=== PATIENT | female | born 1955 | race Caucasian/White ===

== ENCOUNTER 2016-09-29 23:10 | Emergency (ER) | payer MEDICARE, OTHER ==
[2016-09-29] MEDS: Aspirin 81 MG Tab.Chew ONE (23:15)
[2016-09-29] MEDS ORDERED: Aspirin 81 MG Tab.Chew PO ONE (23:17)
[2016-09-29] MEDS ORDERED: Sodium Chloride 0.9% 5 ML Syringe FLUSH PRN (23:20)
[2016-09-29] MEDS: Nitroglycerin 0.4 MG Tab.SL SL PRN ×3 (23:30→23:45)
--- NOTE | 2016-09-29 23:40 | EDM.PDOC ---
ED HPI GENERAL MEDICAL PROBLEM - General Chief Complaint: Chest Pain Stated Complaint: chest hurts Time Seen by Provider: 09/29/16 23:25 Source of Information: Reports: Patient History Limitations: Reports: No Limitations - History of Present Illness INITIAL COMMENTS - FREE TEXT/NARRATIVE: Patient presents with chest pain and heaviness that started about 2100 while she was sitting on her bed slicing meat and cheese. It continues and she rates it at 7/10. She has never had this pain before. She denies any history of MT but had a cardiac stent placed 6 months ago. She does have IDDM and COOKIE. - Related Data Allergies Allergy/AdvReac Type Severity Reaction Status Date / Time prednisone Allergy Cannot Verified 09/30/16 00:16 Remember Sulfa (Sulfonamide Allergy Cannot Verified 09/30/16 00:16 Antibiotics) Remember Home Meds: Home Meds DULoxetine [Cymbalta] 60 mg PO DAILY 09/29/16 [History] Fesoterodine Fumarate [Toviaz] 09/29/16 [History] Fluticasone/Salmeterol [Advair 250-50 Diskus] 09/29/16 [History] Insulin Glarg,Human.Rec.Analog [Lantus] 09/29/16 [History] Meloxicam [Meloxicam] 09/29/16 [History] glipiZIDE [Glipizide ER] 09/29/16 [History] ED ROS GENERAL - Review of Systems Review Of Systems: See Below Constitutional: Denies: Fever, Chills HEENT: Denies: Throat Pain, Vision Change Respiratory: Denies: Shortness of Breath, Cough Cardiovascular: Reports: Chest Pain. Denies: Lightheadedness, Syncope GI/Abdominal: Denies: Abdominal Pain, Vomiting : Denies: Dysuria, Flank Pain Musculoskeletal: Reports: Shoulder Pain (right), Arm Pain (right). Denies: Neck Pain, Back Pain Skin: Denies: Cyanosis, Jaundice, Mottled, Pallor, Diaphoresis Neurological: Denies: Confusion, Dizziness, Headache, Seizure, Syncope, Trouble Speaking Psychiatric: Denies: Agitation, Confusion ED EXAM, GENERAL - Physical Exam Exam: See Below Exam Limited By: No Limitations General Appearance: Alert, WD/WN, No Apparent Distress Eye Exam: Bilateral Eye: EOMI, Normal Inspection, PERRL Ears: Normal External Exam, Hearing Grossly Normal Nose: Normal Inspection, No Blood Throat/Mouth: Normal Lips, Normal Voice, No Airway Compromise Head: Atraumatic, Normocephalic Neck: Supple, Non-Tender, Full Range of Motion. No: Carotid Bruit Respiratory/Chest: No Respiratory Distress, Lungs Clear, Normal Breath Sounds, No Accessory Muscle Use Cardiovascular: Regular Rate, Rhythm, No Murmur Peripheral Pulses: 1+: Dorsalis Pedis (L), Dorsalis Pedis (R), 2+: Carotid (L), Carotid (R), Radial (L), Radial (R) GI/Abdominal: Soft, Non-Tender, No Organomegaly, No Distention Back Exam: No: CVA Tenderness (L), CVA Tenderness (R) Extremities: Non-Tender Neurological: Alert, Oriented, Normal Cognition, No Motor/Sensory Deficits Psychiatric: Normal Affect, Normal Mood Skin Exam: Warm, Dry, Intact, Normal Color, No Rash EKG INTERPRETATION EKG Date: 07/02/16 Rhythm: NSR P-wave: present QRS: RBBB (unchanged from 2 weeks ago on comparison) ST-T: normal QT: normal Comparison: no change Course - Orders/Labs/Meds Orders: Active Orders 24 hr Category Date Time Status EKG Documentation Completion [RC] ASDIRECTED Care 09/29/16 23:37 Ordered Chest 1V Frontal [CR] Stat Exams 09/29/16 23:36 Ordered Sodium Chloride 0.9% @ 999 MLS/HR (1000ml) Med 09/29/16 23:51 Ordered Sodium Chloride 0.9% [Normal Saline] 1,000 ml IV .BOLUS EKG 12 Lead [EK] Routine Ther 09/29/16 23:36 Ordered Medication Orders Sodium Chloride (Normal Saline) 1,000 mls @ 999 mls/hr IV .BOLUS ONE Stop: 09/30/16 00:51 Last Admin: 09/30/16 00:05 Dose: 999 mls/hr Labs: Laboratory Tests 09/29/16 09/29/16 Range/Units 23:28 23:28 WBC 12.0 H (5.0-10.0) 10^3/uL RBC 4.64 (3.80-5.50) 10^6/uL Hgb 13.7 (12.0-16.0) g/dL Hct 41.1 (37.0-47.0) % MCV 88.6 (82.0-92.0) fL MCH 29.5 (27.0-31.0) pg MCHC 33.3 (32.0-36.0) g/dL RDW 11.9 (11.5-14.5) % Plt Count 278 (150-300) 10^3/uL MPV 8.5 (7.4-10.4) fL Sodium 139 (136-145) mmol/L Potassium 4.9 (3.3-5.3) mmol/L Chloride 101 (98-115) mmol/L Carbon Dioxide 27.0 (21.0-32.0) mmol/L BUN 27 H (6-25) mg/dL Creatinine 1.22 H (0.51-1.17) mg/dL Est Cr Clr Drug Dosing 36.54 mL/min Estimated GFR (MDRD) 45 mL/min Glucose 300 H (70-110) mg/dL Calcium 9.6 (8.7-10.3) mg/dL Troponin I 0.07 (0.00-0.070) ng/mL Meds: Medications Generic Name Dose Route Start Last Admin Trade Name Freq PRN Reason Stop Dose Admin Sodium Chloride 1,000 mls @ 999 mls/hr 09/29/16 23:51 09/30/16 00:05 Normal Saline IV 09/30/16 00:51 999 mls/hr .BOLUS ONE Administration Discontinued Medications Generic Name Dose Route Start Last Admin Trade Name Freq PRN Reason Stop Dose Admin Al Hydroxide/Mg Hydroxide 45 ml 09/30/16 00:01 09/30/16 00:07 Gi Cocktail PO 09/30/16 00:02 45 ml ONETIME ONE Administration Al Hydroxide/Mg Hydroxide Confirm 09/30/16 00:02 09/30/16 00:08 Gi Cocktail Administered 09/30/16 00:03 Not Given Dose 50 ml .ROUTE .STK-MED ONE Aspirin Confirm 09/30/16 00:11 09/29/16 23:15 Aspirin Administered 09/30/16 00:12 324 mg Dose Administration 324 mg .ROUTE .STK-MED ONE Heparin Sodium (Porcine) Confirm 09/30/16 00:37 09/30/16 00:42 Heparin Sodium Administered 09/30/16 00:38 4,000 units Dose Administration 5,000 units .ROUTE .STK-MED ONE Heparin Sodium (Porcine) 5,000 units 09/30/16 00:32 Heparin Sodium IVPUSH 09/30/16 00:33 ONETIME ONE Sodium Chloride Confirm 09/29/16 23:52 09/30/16 00:07 Normal Saline Administered 09/29/16 23:53 Not Given Dose 1,000 mls @ as directed .ROUTE .STK-MED ONE Morphine Sulfate 4 mg 09/29/16 23:49 09/29/16 23:50 Morphine IVPUSH 09/29/16 23:50 4 mg ONETIME ONE Administration Morphine Sulfate Confirm 09/29/16 23:49 09/30/16 00:07 Morphine Administered 09/29/16 23:50 Not Given Dose 4 mg .ROUTE .STK-MED ONE Nitroglycerin 0.4 mg 09/30/16 00:08 Nitrostat SL 09/30/16 00:19 Q5M PRN Chest Pain - Re-Assessments/Exams Free Text/Narrative Re-Assessment/Exam: 09/29/16 23:50 Patient has had Nitro sl x 3 and pain is 4-5/10 from 7/10 initially. Giving morphine. Waiting on labs. 09/29/16 23:57 Pain is down to 3/10 shortly after morphine ivp. WBC is 12.0. CXR is normal. 09/30/16 00:44 Troponin is 0.07. Pain is down to 2/10 but not further improving. GI cocktail didn't help. Discussed with Dr. Loza (hospitalist) at [facility] who accepted for transfer to PCU. Discussed also with patient and her who agree and patient is relieved to go there to get everything all checked out. Patient has remained stable throughout ER course. Departure - Departure Time of Disposition: 00:46 Disposition: DC/Tfer to Acute Hospital 02 Reason for Transfer *Q: Other Condition: good Clinical Impression: Unstable angina, NSTEMI, initial episode of care Referrals: Brenda Gomez MD [Primary Care Provider] - Forms: ED Department Discharge - My Orders Last 24 Hours: My Active Orders 09/29/16 23:36 Chest 1V Frontal [CR] Stat EKG 12 Lead [EK] Routine 09/29/16 23:37 EKG Documentation Completion [RC] ASDIRECTED 09/29/16 23:51 Sodium Chloride 0.9% @ 999 MLS/HR (1000ml) Sodium Chloride 0.9% [Normal Saline] 1,000 ml IV .BOLUS - Assessment/Plan Last 24 Hours: My Active Orders 09/29/16 23:36 Chest 1V Frontal [CR] Stat EKG 12 Lead [EK] Routine 09/29/16 23:37 EKG Documentation Completion [RC] ASDIRECTED 09/29/16 23:51 Sodium Chloride 0.9% @ 999 MLS/HR (1000ml) Sodium Chloride 0.9% [Normal Saline] 1,000 ml IV .BOLUS
[2016-09-29] MEDS ORDERED: Morphine 4 MG/ML Syringe IVPUSH ONE (23:49)
[2016-09-29] MEDS ORDERED: Morphine 4 MG/ML Syringe ONE (23:49)
[2016-09-29] MEDS ORDERED: Sodium Chloride 0.9% 1,000 ML IV ONE (23:51)
[2016-09-29] MEDS ORDERED: Sodium Chloride 0.9% 1,000 ML ONE (23:52)
[2016-09-30] MEDS ORDERED: GI Cocktail 45 ML BOTTLE PO ONE (00:01)
[2016-09-30] MEDS ORDERED: GI Cocktail 45 ML BOTTLE ONE (00:02)
[2016-09-30] MEDS ORDERED: Heparin Sodium 5,000 Units/ML Vial IVPUSH ONE (00:32)
[2016-09-30] MEDS ORDERED: Heparin Sodium 5,000 Units/ML Vial ONE (00:37)
[2016-09-30 03:52] VITALS: BP 119/58
[2016-09-30] MEDS: Aspirin 81 MG Tab.Chew ONE (03:53)
== END 2016-09-30 01:02 ==
LOC: KA.ED 23:10
DX: I20.0 Unstable angina (principal); I21.4 Non-ST elevation (NSTEMI) myocardial infarction; Z88.2 Allergy status to sulfonamides; Z88.8 Allergy status to other drugs, medicaments and biological substances; Z79.899 Other long term (current) drug therapy; Z79.4 Long term (current) use of insulin
CPT/HCPCS: 71010; 80048; 84484; 85027; 93005; 96361; 96374; 96375; 99285; A9270; J1644; J2270; J7030

== ENCOUNTER 2019-01-10 23:55 | Emergency (ER) | payer MEDICARE, OTHER ==
[2019-01-11] MEDS ORDERED: Aspirin 81 MG Tab.Chew ONE (00:08)
[2019-01-11] MEDS ORDERED: Nitroglycerin 0.4 MG Tab.SL ONE (00:08)
[2019-01-11] MEDS ORDERED: Aspirin 81 MG Tab.Chew PO ONE (00:09)
[2019-01-11] MEDS: Nitroglycerin 0.4 MG Tab.SL SL PRN ×3 (00:19→00:50)
--- NOTE | 2019-01-11 00:20 | EDM.PDOC ---
ED HPI GENERAL MEDICAL PROBLEM - General Chief Complaint: Cardiovascular Problem Stated Complaint: chest pain Time Seen by Provider: 01/10/19 23:58 Source of Information: Reports: Patient, EMS History Limitations: Reports: No Limitations - History of Present Illness INITIAL COMMENTS - FREE TEXT/NARRATIVE: Patient brought via ambulance with complaint of chest heaviness for the last 52 hours. It started Friday. That is the day she went home from the [place] after having a 4 vessel CABG on December 14 at [facility]. She rates the chest heaviness at 8/10 and has been at that level since it started on Friday. Upper Chest Pain Score (Numeric/FACES): 9 - Related Data Allergies Allergy/AdvReac Type Severity Reaction Status Date / Time prednisone Allergy Other Verified 01/11/19 00:35 Sulfa (Sulfonamide Allergy Cannot Verified 01/11/19 00:35 Antibiotics) Remember Home Meds: Home Meds DULoxetine [Cymbalta] 60 mg PO DAILY 09/29/16 [History] Fesoterodine Fumarate [Toviaz] 8 mg PO DAILY 09/29/16 [History] Fluticasone/Salmeterol [Advair 250-50 Diskus] 1 puff INH BID 09/29/16 [History] Insulin Glarg,Human.Rec.Analog [Lantus] 35 units SQ BEDTIME 09/29/16 [History] Meloxicam 15 mg PO BEDTIME 09/29/16 [History] Insulin Aspart [Novolog Flexpen] units SQ ASDIRECTED PRN 09/30/16 [History] Metoprolol Tartrate 12.5 mg PO BID 09/30/16 [History] glyBURIDE [Micronase] 5 mg PO DAILY 09/30/16 [History] Acetaminophen with Codeine [Acetaminophen-Cod #3] 1 tab PO Q4H PRN 01/11/19 [ History] Aspirin [Ecotrin EC] 81 mg PO DAILY 01/11/19 [History] Carvedilol 6.25 mg PO BID 01/11/19 [History] Clopidogrel Bisulfate [Clopidogrel] 75 mg PO DAILY 01/11/19 [History] Levothyroxine Sodium [Synthroid] 150 mcg PO DAILY 01/11/19 [History] Pantoprazole Sodium [Protonix] 40 mg PO DAILY 01/11/19 [History] Phosphorus #1 [Virt-Phos 250 Neutral Tablet] 250 mg PO BID 01/11/19 [History] Potassium Chloride 20 meq PO DAILY 01/11/19 [History] Rosuvastatin Calcium 20 mg PO BEDTIME 01/11/19 [History] Torsemide 40 mg PO BID 01/11/19 [History] Past Medical History HEENT History: Reports: Impaired Vision, Other (See Below) Other HEENT History: glasses Cardiovascular History: Reports: High Cholesterol, Hypertension, Stents, Other ( See Below) Other Cardiovascular History: stent mar 2017 Respiratory History: Reports: Asthma, Pneumonia, Recurrent, Sleep Apnea, Other ( See Below) Other Respiratory History: cpap use at home Gastrointestinal History: Reports: Chronic Constipation, Colon Polyp, GERD, Other (See Below) Other Gastrointestinal History: Chrohns. ulcers in 1970 -1979's Genitourinary History: Reports: Other (See Below) Other Genitourinary History: UTI's in past many years ago. 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 grade -. occ [place] -rare. feet feel funny - not numb "like they are in mud". narcolepsy Psychiatric History: Reports: Depression Endocrine/Metabolic History: Reports: Hypothyroidism, IDDM, Obesity/BMI 30+ - Past Surgical History HEENT Surgical History: Reports: Cataract Surgery, Other (See Below) Other HEENT Surgeries/Procedures: brigido Cardiovascular Surgical History: Reports: Coronary Artery Stent GI Surgical History: Reports: Colonoscopy, Polypectomy Musculoskeletal Surgical History: Reports: Other (See Below) Other Musculoskeletal Surgeries/Procedures:: does not use walker/cane - relies on dog uses handle on wren Oncologic Surgical History: Reports: Biopsy of Breast, Other (See Below) Other Oncologic Surgeries/Procedures: lumpectomy x 3 Social & Family History - Caffeine Use Caffeine Use Comment: not assessed ED ROS GENERAL - Review of Systems Review Of Systems: See Below Constitutional: Reports: Malaise, Weakness (general), Decreased Appetite. Denies: Fever HEENT: Reports: No Symptoms Respiratory: Denies: Shortness of Breath, Cough Cardiovascular: Reports: Chest Pain Endocrine: Reports: No Symptoms GI/Abdominal: Denies: Abdominal Pain, Diarrhea, Vomiting : Denies: Dysuria Musculoskeletal: Denies: Neck Pain, Shoulder Pain, Arm Pain, Back Pain, Hand Pain, Leg Pain Skin: Denies: Cyanosis, Jaundice, Mottled Neurological: Denies: Confusion, Seizure, Syncope, Trouble Speaking Psychiatric: Denies: Agitation, Anxiety, Confusion ED EXAM, GENERAL - Physical Exam Exam: See Below Exam Limited By: No Limitations General Appearance: Alert (awake but sleepy initially, then more alert), WD/WN, No Apparent Distress Ears: Normal External Exam, Hearing Grossly Normal Nose: Normal Inspection, No Blood Throat/Mouth: Normal Inspection, Normal Lips, Normal Voice, No Airway Compromise Head: Atraumatic, Normocephalic Neck: Normal Inspection, Supple, Non-Tender, Full Range of Motion Respiratory/Chest: No Respiratory Distress, Lungs Clear, Normal Breath Sounds, Other (recent sternotomy with mild cellulitis and possible purulence at inferior incision) Cardiovascular: Tachycardia (slight tach with bigeminy) Peripheral Pulses: 1+: Posterior Tibial (L), Posterior Tibial (R), 2+: Carotid ( L), Carotid (R), Radial (L), Radial (R) GI/Abdominal: Normal Bowel Sounds, Soft, Non-Tender, No Organomegaly, No Distention Extremities: Normal Range of Motion, Non-Tender, Pedal Edema (symmetric). No: Shakeel's Sign, Leg Pain, Mottled, Pallor Neurological: Alert, Oriented, No Motor/Sensory Deficits, Slow to Respond (a little slow and sleepy at times but easily rousable; more alert later in visit) , Other (no asymmetry of face or extremity strength) Psychiatric: Normal Mood Skin Exam: Warm, Dry, Intact, No Rash, Pallor (mild) Course - Vital Signs Last Recorded V/S: Last Vital Signs Temp 100.7 F H 01/11/19 01:40 Pulse 115 H 01/11/19 01:40 Resp 20 01/11/19 01:40 BP 110/37 L 01/11/19 01:40 Pulse Ox 97 01/11/19 01:40 - Orders/Labs/Meds Orders: Active Orders 24 hr Category Date Time Status EKG Documentation Completion [RC] ASDIRECTED Care 01/11/19 00:38 Active Peripheral IV Care [RC] . DIRECTED Care 01/11/19 00:37 Active Chest 1V Frontal [CR] Stat Exams 01/11/19 00:09 Ordered MISCELLANEOUS CULT [MREF] Stat Lab 01/11/19 00:30 Received Sodium Chloride 0.9% [Saline Flush] Med 01/11/19 00:37 Active 10 ml FLUSH Q8HR PRN Peripheral IV Insertion Adult [OM.PC] Routine Oth 01/11/19 00:37 Ordered EKG 12 Lead [EK] Routine Ther 01/10/19 23:55 Ordered Medication Orders Sodium Chloride (Saline Flush) 10 ml FLUSH Q8HR PRN PRN Reason: keep vein open Last Admin: 01/11/19 00:10 Dose: 10 ml Labs: Laboratory Tests 01/11/19 01/11/19 Range/Units 00:12 00:12 WBC 11.27 H (5.00-10.00) 10^3/uL RBC 3.61 L (3.80-5.50) 10^6/uL Hgb 10.8 L (12.0-16.0) g/dL Hct 33.4 L (37.0-47.0) % MCV 92.5 H (82.0-92.0) fL MCH 29.9 (27.0-31.0) pg MCHC 32.3 (32.0-36.0) g/dL RDW 15.1 H (11.5-14.5) % Plt Count 273 (150-400) 10^3/uL MPV 10.5 H (7.4-10.4) fL Immature Gran % (Auto) 0.5 (0.0-5.0) % Neut % (Auto) 86.7 H (50.0-70.0) % Lymph % (Auto) 5.1 L (20.0-40.0) % [place] % (Auto) 7.3 (2.0-8.0) % Eos % (Auto) 0.0 L (1.0-3.0) % Baso % (Auto) 0.4 (0.0-1.0) % Immature Gran # (Auto) 0.06 (0.00-0.50) 10^3/uL Neut # (Auto) 9.76 H (2.50-7.00) 10^3/uL Lymph # (Auto) 0.58 L (1.00-4.00) 10^3/uL [place] # (Auto) 0.82 H (0.10-0.80) 10^3/uL Eos # (Auto) 0.00 L (0.10-0.30) 10^3/uL Baso # (Auto) 0.05 (0.00-0.10) 10^3/uL Sodium 128 L D (136-145) mmol/L Potassium 4.4 (3.3-5.3) mmol/L Chloride 91 L D (98-115) mmol/L Carbon Dioxide 26.4 (21.0-32.0) mmol/L Anion Gap 15.0 (5-15) mmol/L BUN 43 H (6-25) mg/dL Creatinine 1.72 H (0.51-1.17) mg/dL Est Cr Clr Drug Dosing 25.26 mL/min Estimated GFR (MDRD) 30 mL/min Glucose 414 H (75 - 99) mg/dL Calcium 9.0 (8.7-10.3) mg/dL CK-MB (CK-2) 1.00 (0.00-4.30) ng/mL Troponin I < 0.04 (0.00-0.070) ng/mL Meds: Medications Generic Name Dose Route Start Last Admin Trade Name Freq PRN Reason Stop Dose Admin Sodium Chloride 10 ml 01/11/19 00:37 01/11/19 00:10 Saline Flush FLUSH 10 ml Q8HR PRN Administration keep vein open Discontinued Medications Generic Name Dose Route Start Last Admin Trade Name Freq PRN Reason Stop Dose Admin Aspirin Confirm 01/11/19 00:08 01/11/19 00:41 Aspirin Administered 01/11/19 00:09 Not Given Dose 324 mg .ROUTE .STK-MED ONE Aspirin 324 mg 01/11/19 00:09 01/11/19 00:10 Aspirin PO 01/11/19 00:10 324 mg ONETIME ONE Administration Insulin Glargine 15 units 01/11/19 01:13 01/11/19 01:21 Lantus Solostar SUBCUT 01/11/19 01:14 15 units ONETIME ONE Administration Insulin Human Regular 5 unit 01/11/19 01:40 Novolin R SUBCUT 01/11/19 01:41 ONETIME ONE Protocol Nitroglycerin Confirm 01/11/19 00:08 01/11/19 00:41 Nitrostat Administered 01/11/19 00:09 Not Given Dose 0.4 mg .ROUTE .STK-MED ONE Nitroglycerin 0.4 mg 01/11/19 00:09 01/11/19 00:50 Nitrostat SL 0.4 mg Q5M PRN Administration Chest Pain - Re-Assessments/Exams Free Text/Narrative Re-Assessment/Exam: 01/11/19 00:50 Pain before first nitro here was 8; then down to 5 after nitro; second nitro still 5 and will give 3rd now. BP is holding 158/64. 01/11/19 01:30 Labs showing normal troponin and CKMB. Glucose is 414, sodium 128. Creatinine 1.7, these labs are fairly typical for her recently. She hasn't had her Lantus tonight so gave 15 units. EKG and CXR are sent to [facility] to be available when I call there. 01/11/19 01:48 As soon as labs were available I called and discussed case with Dr. Luna ER and Dr. Beauchamp IM at [facility] in [place] who accepted for transfer. Since cardiac labs are normal, possibility of PE as cause but will transfer now rather than waiting for CT here. Patient has been stable. Departure - Departure Time of Disposition: 01:46 Disposition: DC/Tfer to Acute Hospital 02 Reason for Transfer *Q: Other Condition: Good Clinical Impression: Cardiomegaly, Pleural effusion, left Chest pain Qualifiers: Chest pain type: unspecified Qualified Code(s): R07.9 - Chest pain, unspecified Dyspnea Qualifiers: Dyspnea type: unspecified Qualified Code(s): R06.00 - Dyspnea, unspecified Forms: ED Department Discharge - My Orders Last 24 Hours: My Active Orders 01/10/19 23:55 EKG 12 Lead [EK] Routine 01/11/19 00:09 Chest 1V Frontal [CR] Stat 01/11/19 00:30 MISCELLANEOUS CULT [MREF] Stat 01/11/19 00:37 Peripheral IV Care [RC] . DIRECTED Sodium Chloride 0.9% [Saline Flush] 10 ml FLUSH Q8HR PRN Peripheral IV Insertion Adult [OM.PC] Routine 01/11/19 00:38 EKG Documentation Completion [RC] ASDIRECTED - Assessment/Plan Last 24 Hours: My Active Orders 01/10/19 23:55 EKG 12 Lead [EK] Routine 01/11/19 00:09 Chest 1V Frontal [CR] Stat 01/11/19 00:30 MISCELLANEOUS CULT [MREF] Stat 01/11/19 00:37 Peripheral IV Care [RC] . DIRECTED Sodium Chloride 0.9% [Saline Flush] 10 ml FLUSH Q8HR PRN Peripheral IV Insertion Adult [OM.PC] Routine 01/11/19 00:38 EKG Documentation Completion [RC] ASDIRECTED
[2019-01-11] MEDS ORDERED: Sodium Chloride 0.9% 10 ML Syringe FLUSH PRN (00:37)
[2019-01-11 01:05] LABS: CHLORIDE,CL 91 mmol/L (98-115); SODIUM,NA 128 mmol/L (136-145)
[2019-01-11] MEDS ORDERED: Insulin Glargine,Human Rec. Analog 100 Units/ML 3 ML Pen SUBCUT ONE (01:13)
[2019-01-11] MEDS ORDERED: Insulin Regular, Human 100 Units/ML 10 ML Vial SUBCUT ONE (01:40)
[2019-01-11 01:42] VITALS: BP 110/37
[2019-01-11] MEDS ORDERED: Acetaminophen 650 MG Tab.ER PO ONE (01:49)
[2019-01-11] MEDS ORDERED: Acetaminophen 325 MG Tab ONE (01:53)
[2019-01-11] MEDS ORDERED: Acetaminophen 325 MG Tab PO ONE (01:54)
== END 2019-01-11 02:00 ==
LOC: KA.ED 23:55
DX: I51.7 Cardiomegaly (principal); J90 Pleural effusion, not elsewhere classified; R06.00 Dyspnea, unspecified; K21.9 Gastro-esophageal reflux disease without esophagitis; E03.9 Hypothyroidism, unspecified; E11.40 Type 2 diabetes mellitus with diabetic neuropathy, unspecified; E66.9 Obesity, unspecified; I10 Essential (primary) hypertension; E78.00 Pure hypercholesterolemia, unspecified; Z79.82 Long term (current) use of aspirin; Z88.8 Allergy status to other drugs, medicaments and biological substances; Z88.2 Allergy status to sulfonamides; Z79.899 Other long term (current) drug therapy; Z79.84 Long term (current) use of oral hypoglycemic drugs; Z98.890 Other specified postprocedural states
CPT/HCPCS: 36415; 71045; 80048; 82553; 84484; 85025; 87070; 87205; 93005; 99285; A9270; J1815; J1817

== ENCOUNTER 2019-05-18 16:45 | Emergency (ER) | payer MEDICARE, OTHER, MEDICAID ==
[2019-05-18] MEDS ORDERED: Sodium Chloride 0.9% 1,000 ML IV ONE ×2 (17:00→19:46)
[2019-05-18] MEDS: Sodium Chloride 0.9% 1,000 ML ONE (17:05)
--- NOTE | 2019-05-18 17:17 | EDM.PDOC ---
ED HPI GENERAL MEDICAL PROBLEM - General Stated Complaint: UNRESPONSIVE, ELEV. BLOOD SUGARS Time Seen by Provider: 05/18/19 16:54 Source of Information: Reports: Patient, EMS, Family () History Limitations: Reports: Altered Mental Status - History of Present Illness INITIAL COMMENTS - FREE TEXT/NARRATIVE: Patient presents via EMS with complaint of being unresponsive and lethargic. Ambulance checked glucose of 430 and here it is 293. Patient is awake but pale and sleepy. She answers most questions but a little slowed and delayed. She has diabetes and takes insulin. She hasn't eaten anything since yesterday morning (more than 24 hours ago) but did take her long-acting insulin. She denies any pain in chest or abdomen. She had an RI a few months ago with stents and is on warfarin. Her noticed blood on her pad in the trash but she says it was from coughing. She remembers today's events and says she went to the bathroom to urinate a few times. Urination was normal and no diarrhea she says. - Related Data Allergies Allergy/AdvReac Type Severity Reaction Status Date / Time prednisone Allergy Other Verified 01/11/19 00:35 Sulfa (Sulfonamide Allergy Cannot Verified 01/11/19 00:35 Antibiotics) Remember Home Meds: Home Meds DULoxetine [Cymbalta] 90 mg PO DAILY 09/29/16 [History] Fesoterodine Fumarate [Toviaz] 8 mg PO DAILY 09/29/16 [History] Fluticasone/Salmeterol [Advair 250-50 Diskus] 1 puff INH BID 09/29/16 [History] Insulin Glarg,Human.Rec.Analog [Lantus] 15 units SQ BEDTIME 09/29/16 [History] Meloxicam 15 mg PO BEDTIME 09/29/16 [History] Insulin Aspart [Novolog Flexpen] 15 units SQ QID PRN 09/30/16 [History] Metoprolol Tartrate 12.5 mg PO BID 09/30/16 [History] glyBURIDE [Micronase] 5 mg PO DAILY 09/30/16 [History] Acetaminophen with Codeine [Acetaminophen-Cod #3] 1 tab PO Q4H PRN 01/11/19 [ History] Aspirin [Ecotrin EC] 81 mg PO DAILY 01/11/19 [History] Clopidogrel Bisulfate [Clopidogrel] 75 mg PO DAILY 01/11/19 [History] Levothyroxine Sodium [Synthroid] 150 mcg PO DAILY 01/11/19 [History] Pantoprazole Sodium [Protonix] 40 mg PO DAILY 01/11/19 [History] Phosphorus #1 [Virt-Phos 250 Neutral Tablet] 250 mg PO BID 01/11/19 [History] Potassium Chloride 20 meq PO DAILY 01/11/19 [History] Rosuvastatin Calcium 20 mg PO BEDTIME 01/11/19 [History] Torsemide 40 mg PO BID 01/11/19 [History] carvediloL [Carvedilol] 6.25 mg PO BID 01/11/19 [History] Past Medical History HEENT History: Reports: Impaired Vision, Other (See Below) Other HEENT History: glasses Cardiovascular History: Reports: High Cholesterol, Hypertension, Stents, Other ( See Below) Other Cardiovascular History: stent mar 2017 Respiratory History: Reports: Asthma, Pneumonia, Recurrent, Sleep Apnea, Other ( See Below) Other Respiratory History: cpap use at home Gastrointestinal History: Reports: Chronic Constipation, Colon Polyp, GERD, Other (See Below) Other Gastrointestinal History: Chrohns. ulcers in 1969 - Genitourinary History: Reports: Other (See Below) Other Genitourinary History: UTI's in past many years ago. 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 grade -. occ [place] -rare. feet feel funny - not numb "like they are in mud". narcolepsy Psychiatric History: Reports: Depression Endocrine/Metabolic History: Reports: Hypothyroidism, IDDM, Obesity/BMI 30+ Hematologic History: Reports: Blood Transfusion(s) Dermatologic History: Reports: Other (See Below) Other Dermatologic History: chronic red sore area under abdominal folds - Infectious Disease History Infectious Disease History: Reports: Chicken Pox - Past Surgical History HEENT Surgical History: Reports: Cataract Surgery, Other (See Below) Other HEENT Surgeries/Procedures: brigido Cardiovascular Surgical History: Reports: Coronary Artery Stent GI Surgical History: Reports: Colonoscopy, Polypectomy Musculoskeletal Surgical History: Reports: Other (See Below) Other Musculoskeletal Surgeries/Procedures:: does not use walker/cane - relies on dog uses handle on wren Oncologic Surgical History: Reports: Biopsy of Breast, Other (See Below) Other Oncologic Surgeries/Procedures: lumpectomy x 3 Social & Family History - Caffeine Use Caffeine Use: Reports: None Caffeine Use Comment: not assessed ED ROS GENERAL - Review of Systems Review Of Systems: See Below Constitutional: Reports: Weakness, Fatigue. Denies: Fever (97.1 temp), Chills HEENT: Denies: Throat Pain Respiratory: Reports: Cough, Hemoptysis. Denies: Shortness of Breath, Pleuritic Chest Pain Cardiovascular: Denies: Chest Pain GI/Abdominal: Denies: Abdominal Pain, Diarrhea, Vomiting : Denies: Dysuria Musculoskeletal: Denies: Neck Pain, Shoulder Pain, Arm Pain, Back Pain, Hand Pain Neurological: Reports: Other (she knows where she is and what year it is. Not sure of what day). Denies: Headache, Seizure, Trouble Speaking Psychiatric: Denies: Agitation Hematologic/Lymphatic: Reports: Easy Bleeding, Easy Bruising (on warfarin) - Physical Exam Exam: See Below Exam Limited By: No Limitations (she is a little lethargic but not affecting exam much) General Appearance: Lethargic (initially), Obtunded (later in course, then sedated with intubation), Obese Eye Exam: Left Eye: Conjunctival Injection, Bilateral Eye: EOMI, PERRL Ears: Normal External Exam, Hearing Grossly Normal Nose: Normal Inspection, No Blood Throat/Mouth: Normal Inspection, No Airway Compromise (most of the time but she stopped breathing likely related to her sleep apnea) Head Exam: Atraumatic, Normocephalic Neck: Normal Inspection, Supple, Non-Tender, Full Range of Motion Respiratory/Chest: Crackles. No: Rhonchi, Wheezing, Stridor Cardiovascular: Regular Rate, Rhythm, Other (weak pedal pulses) GI/Abdominal: Soft, Non-Tender, No Organomegaly Neuro Exam (Abbreviated): Other (oriented prior to sedation) Back Exam: CVA Tenderness (R). No: CVA Tenderness (L) Extremities: Normal Range of Motion, Pallor Psychiatric: Normal Affect Skin Exam: Warm, Dry, Intact, Pallor Course - Orders/Labs/Meds Orders: Active Orders 24 hr Category Date Time Status PACKED CELLS [RED BLOOD CELLS LP] [BBK] Stat Lab 05/18/19 17:46 Ordered TYPE AND SCREEN [BBK] Stat Lab 05/18/19 17:17 Ordered Norepinephrine 4 MG in D5W @ 2 MCG/MIN(250ml) Med 05/18/19 18:00 Ordered Norepinephrine [Levophed] 4 mg Dextrose 5% in Water 246 ml IV TITRATE Sodium Chloride 0.9% [Normal Saline] 1,000 ml Med 05/18/19 19:46 Active IV .BOLUS Blood Culture x2 Reflex Set [OM.PC] Stat Oth 05/18/19 17:07 Ordered Transfuse PRBC [Transfuse Red Blood Cells] [COMM] Stat Oth 05/18/19 17:46 Ordered Medication Orders Norepinephrine Bitartrate 4 mg (/ Dextrose/Water) 250 mls @ 7.5 mls/hr IV TITRATE KATHY; Protocol Sodium Chloride (Normal Saline) 1,000 mls @ 999 mls/hr IV .BOLUS ONE Stop: 05/18/19 20:46 Labs: Laboratory Tests 05/18/19 05/18/19 05/18/19 Range/Units 16:55 16:55 16:55 WBC 35.34 H* D (5.00-10.00) 10^3/uL RBC 2.41 L (3.80-5.50) 10^6/uL Hgb 5.5 L* D (12.0-16.0) g/dL Hct 19.6 L* (37.0-47.0) % MCV 81.3 L D (82.0-92.0) fL MCH 22.8 L (27.0-31.0) pg MCHC 28.1 L (32.0-36.0) g/dL RDW 18.0 H (11.5-14.5) % Plt Count 273 (150-400) 10^3/uL MPV 10.4 (7.4-10.4) fL Add Manual Diff Yes Neutrophils % (Manual) 92 H (50-70) % Lymphocytes % (Manual) 6 L (20-40) % Monocytes % (Manual) 2 (2-8) % Absolute Neutrophils 32.5128 Lymphocytes # (Manual) 2.1204 Monocytes # (Manual) 0.7068 PT 189.9 H D (8.9-11.4) SEC INR < 18.0 H* (0.9-1.1) Sodium 138 (136-145) mmol/L Potassium 5.7 H (3.3-5.3) mmol/L Chloride 97 L (98-115) mmol/L Carbon Dioxide 19.1 L D (21.0-32.0) mmol/L Anion Gap 27.6 H (5-15) mmol/L BUN 55 H* (6-25) mg/dL Creatinine 1.90 H (0.51-1.17) mg/dL Est Cr Clr Drug Dosing TNP Estimated GFR (MDRD) 27 mL/min Glucose 354 H (75 - 99) mg/dL Lactic Acid (0.4-2.0) mmol/L Calcium 8.2 L (8.7-10.3) mg/dL Total Bilirubin 0.9 (0.2-1.0) mg/dL AST 206 H (15-37) U/L ALT 193 H (12-78) U/L Alkaline Phosphatase 88 (46-116) IU/L Troponin I 1.42 H* (0.00-0.070) ng/mL Total Protein 6.3 L (6.4-8.2) g/dL Albumin 2.55 L (3.00-4.80) g/dL Blood Type Gel Antibody Screen Crossmatch 05/18/19 05/18/19 Range/Units 16:55 16:55 WBC (5.00-10.00) 10^3/uL RBC (3.80-5.50) 10^6/uL Hgb (12.0-16.0) g/dL Hct (37.0-47.0) % MCV (82.0-92.0) fL MCH (27.0-31.0) pg MCHC (32.0-36.0) g/dL RDW (11.5-14.5) % Plt Count (150-400) 10^3/uL MPV (7.4-10.4) fL Add Manual Diff Neutrophils % (Manual) (50-70) % Lymphocytes % (Manual) (20-40) % Monocytes % (Manual) (2-8) % Absolute Neutrophils Lymphocytes # (Manual) Monocytes # (Manual) PT (8.9-11.4) SEC INR (0.9-1.1) Sodium (136-145) mmol/L Potassium (3.3-5.3) mmol/L Chloride (98-115) mmol/L Carbon Dioxide (21.0-32.0) mmol/L Anion Gap (5-15) mmol/L BUN (6-25) mg/dL Creatinine (0.51-1.17) mg/dL Est Cr Clr Drug Dosing Estimated GFR (MDRD) mL/min Glucose (75 - 99) mg/dL Lactic Acid 13.9 H (0.4-2.0) mmol/L Calcium (8.7-10.3) mg/dL Total Bilirubin (0.2-1.0) mg/dL AST (15-37) U/L ALT (12-78) U/L Alkaline Phosphatase (46-116) IU/L Troponin I (0.00-0.070) ng/mL Total Protein (6.4-8.2) g/dL Albumin (3.00-4.80) g/dL Blood Type A POSITIVE Gel Antibody Screen Negative Crossmatch See Detail Meds: Medications Generic Name Dose Route Start Last Admin Trade Name Freq PRN Reason Stop Dose Admin Norepinephrine Bitartrate 4 mg 250 mls @ 7.5 mls/hr 05/18/19 18:00 / Dextrose/Water IV TITRATE KATHY Protocol 2 MCG/MIN Sodium Chloride 1,000 mls @ 999 mls/hr 05/18/19 19:46 Normal Saline IV 05/18/19 20:46 .BOLUS ONE Discontinued Medications Generic Name Dose Route Start Last Admin Trade Name Freq PRN Reason Stop Dose Admin Ceftriaxone Sodium 2 gm 05/18/19 17:43 05/18/19 17:55 Rocephin IVPUSH 05/18/19 17:44 2 gm ONETIME ONE Administration Ceftriaxone Sodium Confirm 05/18/19 17:44 05/18/19 19:38 Rocephin Administered 05/18/19 17:45 Not Given Dose 2 gm .ROUTE .STK-MED ONE Sodium Chloride Confirm 05/18/19 16:58 Normal Saline Administered 05/18/19 16:59 Dose 1,000 mls @ as directed .ROUTE .STK-MED ONE Sodium Chloride Confirm 05/18/19 17:29 Normal Saline Administered 05/18/19 17:30 Dose 1,000 mls @ as directed .ROUTE .STK-MED ONE Vancomycin HCl 1 gm/ Sodium 250 mls @ 167 mls/hr 05/18/19 17:54 05/18/19 19: 45 Chloride IV 05/18/19 19:23 Not Given ONETIME ONE Dextrose/Water Confirm 05/18/19 19:46 Dextrose 5% In Water Administered 05/18/19 19:47 Dose 250 mls @ as directed .ROUTE .STK-MED ONE Non-Formulary Medication 1,500 each 05/18/19 19:00 Nf Drug IVPUSH 05/18/19 19:01 ONETIME ONE - Re-Assessments/Exams Free Text/Narrative Re-Assessment/Exam: 05/18/19 17:55 Fluids were started as soon as we could get IV access. Patient has been stable/ improving since arrival. BP was as low as 82/32 then improved slowly. Michael arranged flight and I discussed case with Dr. Henning, retail pharmacy manager at [facility] who accepted for transfer. He requested some labs and meds which we are working on prior to arrival of flight crew. He doesn't want us to give more than 1 liter of fluids due to her CHF and wants us to use Levophed after that to maintain MAP of 65. Will get blood running as soon as we can as Hg is 5.5, WBC is 35k and rest of labs are pending. 05/18/19 20:03 This was an extended, complicated course involving RSI intubation by flight crew before departure, CPR and one round of epinephrine, Levophed and fluids to support pressures. This was all documented in detail by Michael which will be included in this note. Patient was discharged with air flight to [facility] and as stable as we could get her after a lengthy ER course. Departure - Departure Time of Disposition: 20:01 Disposition: DC/Tfer to Acute Hospital 02 Condition: Fair Clinical Impression: Septic shock, Acute RI, Cardiac arrest, Neutrophilic leukocytosis - Discharge Information Referrals: PCP,Unknown [Ordering Only Provider] - Sepsis Event Note - Focused Exam Date Exam was Performed: 05/18/19 Time Exam was Performed: 20:00 - My Orders Last 24 Hours: My Active Orders 05/18/19 17:07 Blood Culture x2 Reflex Set [OM.PC] Stat 05/18/19 17:17 TYPE AND SCREEN [BBK] Stat 05/18/19 17:46 PACKED CELLS [RED BLOOD CELLS LP] [BBK] Stat Transfuse PRBC [Transfuse Red Blood Cells] [COMM] Stat 05/18/19 18:00 Norepinephrine 4 MG in D5W @ 2 MCG/MIN(250ml) Norepinephrine [Levophed] 4 mg Dextrose 5% in Water 246 ml IV TITRATE 05/18/19 19:46 Sodium Chloride 0.9% [Normal Saline] 1,000 ml IV .BOLUS - Assessment/Plan Last 24 Hours: My Active Orders 05/18/19 17:07 Blood Culture x2 Reflex Set [OM.PC] Stat 05/18/19 17:17 TYPE AND SCREEN [BBK] Stat 05/18/19 17:46 PACKED CELLS [RED BLOOD CELLS LP] [BBK] Stat Transfuse PRBC [Transfuse Red Blood Cells] [COMM] Stat 05/18/19 18:00 Norepinephrine 4 MG in D5W @ 2 MCG/MIN(250ml) Norepinephrine [Levophed] 4 mg Dextrose 5% in Water 246 ml IV TITRATE 05/18/19 19:46 Sodium Chloride 0.9% [Normal Saline] 1,000 ml IV .BOLUS
[2019-05-18] MEDS ORDERED: Sodium Chloride 0.9% 1,000 ML ONE (17:29)
--- NOTE | 2019-05-18 17:35 | CR ---
[id number] RAD/RAD Chest PA or AP 1V EXAM: FRONTAL CHEST INDICATION: Dyspnea and bleeding. COMPARISON: January 11, 2019. DISCUSSION: Stable cardiomegaly. Interval development of moderate central predominant airspace opacities, favor pulmonary edema. Findings are nonspecific, however, and infection and other pathology would also be in the differential considerations. Follow-up is suggested to ensure resolution. Prior sternotomy. IMPRESSION: 1. Cardiomegaly with moderate bilateral airspace opacities most suggestive of pulmonary edema. Justus Lerma MD 05/18/19 1733 Thank you for allowing us to participate in the care of your patient.
[2019-05-18] MEDS ORDERED: cefTRIAXone 2 GM Vial IVPUSH ONE (17:43)
[2019-05-18] MEDS ORDERED: cefTRIAXone 1 GM Vial ONE (17:44)
[2019-05-18 17:49] LABS: ANION GAP 27.6 mmol/L (5-15); CHLORIDE,CL 97 mmol/L (98-115); SODIUM,NA 138 mmol/L (136-145)
[2019-05-18] MEDS ORDERED: Norepinephrine 4 MG in Dextrose 5% in Water 246 ML IV SCH ×2 (18:00)
[2019-05-18] MEDS ORDERED: Factor IX Complex Human 500 UNIT VIAL IV ONE (18:00)
[2019-05-18] MEDS ORDERED: EPINEPHrine 1 MG/1 ML Amp IVPUSH ONE (18:45)
[2019-05-18] MEDS ORDERED: Non-Formulary Medication 1 Each IVPUSH ONE (19:00)
[2019-05-18] MEDS ORDERED: Dextrose 5% in Water 250 ML ONE (19:46)
[2019-05-19 09:37] VITALS: BP 103/34; PULSE 88
[2019-05-19] MEDS: Sodium Chloride 0.9% 1,000 ML ONE (10:17)
== END 2019-05-18 20:05 ==
LOC: KA.ED 16:45
DX: A41.9 Sepsis, unspecified organism (principal); R65.21 Severe sepsis with septic shock; I21.9 Acute myocardial infarction, unspecified; I46.9 Cardiac arrest, cause unspecified; D72.829 Elevated white blood cell count, unspecified; I10 Essential (primary) hypertension; E11.9 Type 2 diabetes mellitus without complications; E03.9 Hypothyroidism, unspecified; E66.9 Obesity, unspecified; F32.9 Major depressive disorder, single episode, unspecified; K21.9 Gastro-esophageal reflux disease without esophagitis; Z79.899 Other long term (current) drug therapy; Z95.5 Presence of coronary angioplasty implant and graft; Z88.2 Allergy status to sulfonamides; Z88.8 Allergy status to other drugs, medicaments and biological substances; Z79.4 Long term (current) use of insulin
CPT/HCPCS: 31500; 36430; 36680; 43752; 51702; 71045; 80053; 83605; 84484; 85025; 85610; 86850; 86900; 86901; 86920; 86922; 87804; 93005; 96361; 96365; 96374; 96375; 99284; 99285-25; J0171; J0696; J7030; J7060; P9016; Q3014

== ENCOUNTER 2019-05-28 20:00 | Inpatient (IN) | payer MEDICARE, OTHER, MEDICAID ==
--- NOTE | 2019-05-28 20:36 | EDM.PDOC ---
ED HPI GENERAL MEDICAL PROBLEM - General Stated Complaint: SHORT OF BREATH Time Seen by Provider: 05/28/19 20:19 Source of Information: Reports: Patient, EMS, EMS Notes Reviewed - History of Present Illness INITIAL COMMENTS - FREE TEXT/NARRATIVE: Patient is a 64-year-old female who presents to the emergency department via EMS with a complaint of shortness of breath. Patient states that she was released from [facility] on Friday and has been short of breath even at rest since. Patient underwent coronary artery bypass surgery in December 2018. Patient was also seen here on May 18 underwent cardiac resuscitation, also diagnosed with sepsis, and was transferred to [facility] via air ambulance. Patient also has a history of sleep apnea and currently wears CPAP at night. Patient states that she does have tenderness of lower ribs extending from sternum to axilla and attributes this to the CPR performed on May 18. Patient's Coumadin was discontinued on Friday, May 26. She is currently not on any anticoagulation therapy Patient denies fever, recent falls, change in lower extremity edema, nausea, vomiting, diarrhea, or blood in stool. Onset: Gradual Duration: Day(s): Location: Reports: Chest Quality: Reports: Ache Severity: Mild Improves with: Reports: None Worsens with: Reports: Breathing Context: Reports: Other (While at rest) Associated Symptoms: Reports: Chest Pain, Shortness of Breath. Denies: Cough, Fever/Chills, Headaches, Nausea/Vomiting Chest Pain Score (Numeric/FACES): 4 - Related Data Allergies Allergy/AdvReac Type Severity Reaction Status Date / Time prednisone Allergy Other Verified 05/28/19 20:29 Sulfa (Sulfonamide Allergy Cannot Verified 05/28/19 20:29 Antibiotics) Remember Home Meds: Home Meds DULoxetine [Cymbalta] 90 mg PO DAILY 09/29/16 [History] Fesoterodine Fumarate [Toviaz] 8 mg PO DAILY 09/29/16 [History] Fluticasone/Salmeterol [Advair 250-50 Diskus] 1 puff INH BID 09/29/16 [History] Insulin Glarg,Human.Rec.Analog [Lantus] 15 units SQ BEDTIME 09/29/16 [History] Meloxicam 15 mg PO BEDTIME 09/29/16 [History] Insulin Aspart [Novolog Flexpen] 15 units SQ QID PRN 09/30/16 [History] Metoprolol Tartrate 12.5 mg PO BID 09/30/16 [History] glyBURIDE [Micronase] 5 mg PO DAILY 09/30/16 [History] Acetaminophen with Codeine [Acetaminophen-Cod #3] 1 tab PO Q4H PRN 01/11/19 [ History] Aspirin [Ecotrin EC] 81 mg PO DAILY 01/11/19 [History] Clopidogrel Bisulfate [Clopidogrel] 75 mg PO DAILY 01/11/19 [History] Levothyroxine Sodium [Synthroid] 150 mcg PO DAILY 01/11/19 [History] Pantoprazole Sodium [Protonix] 40 mg PO DAILY 01/11/19 [History] Phosphorus #1 [Virt-Phos 250 Neutral Tablet] 250 mg PO BID 01/11/19 [History] Potassium Chloride 20 meq PO DAILY 01/11/19 [History] Rosuvastatin Calcium 20 mg PO BEDTIME 01/11/19 [History] Torsemide 40 mg PO BID 01/11/19 [History] carvediloL [Carvedilol] 6.25 mg PO BID 01/11/19 [History] Past Medical History HEENT History: Reports: Impaired Vision, Other (See Below) Other HEENT History: glasses Cardiovascular History: Reports: High Cholesterol, Hypertension, Stents, Other ( See Below) Other Cardiovascular History: stent mar 2017 Respiratory History: Reports: Asthma, Pneumonia, Recurrent, Sleep Apnea, Other ( See Below) Other Respiratory History: cpap use at home Gastrointestinal History: Reports: Chronic Constipation, Colon Polyp, GERD, Other (See Below) Other Gastrointestinal History: Chrohns. ulcers in 1969 -1979's Genitourinary History: Reports: Other (See Below) Other Genitourinary History: UTI's in past many years ago. rectal repair [employer]ER CHAINSTITCH History: Reports: Other (See Below) Other B[employer]ER CHAINSTITCH History: unable to have children Musculoskeletal History: Reports: Arthritis, Fibromyalgia, Osteoporosis Neurological History: Reports: Migraines, Neuropathy, Diabetic, Seizure, Other ( See Below) Other Neuro History: Seizure x 1 in 8. grade -. occ [place] -rare. feet feel funny - not numb "like they are in mud". narcolepsy Psychiatric History: Reports: Depression Endocrine/Metabolic History: Reports: Hypothyroidism, IDDM, Obesity/BMI 30+ Hematologic History: Reports: Blood Transfusion(s) Dermatologic History: Reports: Other (See Below) Other Dermatologic History: chronic red sore area under abdominal folds - Infectious Disease History Infectious Disease History: Reports: Chicken Pox - Past Surgical History HEENT Surgical History: Reports: Cataract Surgery, Other (See Below) Other HEENT Surgeries/Procedures: brigido Cardiovascular Surgical History: Reports: Coronary Artery Stent GI Surgical History: Reports: Colonoscopy, Polypectomy Musculoskeletal Surgical History: Reports: Other (See Below) Other Musculoskeletal Surgeries/Procedures:: does not use walker/cane - relies on dog uses handle on wren Oncologic Surgical History: Reports: Biopsy of Breast, Other (See Below) Other Oncologic Surgeries/Procedures: lumpectomy x 3 Social & Family History - Caffeine Use Caffeine Use: Reports: None Caffeine Use Comment: not assessed ED ROS GENERAL - Review of Systems Review Of Systems: Comprehensive ROS is negative, except as noted in HPI. Constitutional: Reports: No Symptoms HEENT: Reports: No Symptoms Respiratory: Reports: Shortness of Breath Cardiovascular: Reports: Chest Pain (Lower ribs from sternum to axilla bilaterally) Endocrine: Reports: No Symptoms GI/Abdominal: Reports: No Symptoms : Reports: No Symptoms Musculoskeletal: Reports: No Symptoms Skin: Reports: No Symptoms Neurological: Reports: No Symptoms Psychiatric: Reports: No Symptoms Hematologic/Lymphatic: Reports: Easy Bruising (Discontinued Coumadin 2 days ago) Immunologic: Reports: No Symptoms ED EXAM, GENERAL - Physical Exam Exam: See Below Exam Limited By: No Limitations General Appearance: Alert, WD/WN, No Apparent Distress Eye Exam: Bilateral Eye: Normal Inspection Nose: Normal Inspection, Normal Mucosa, No Blood Throat/Mouth: Normal Inspection, Normal Oropharynx, No Airway Compromise Head: Atraumatic, Normocephalic Neck: Normal Inspection Respiratory/Chest: No Respiratory Distress, Decreased Breath Sounds, Crackles Cardiovascular: Regular Rate, Rhythm, No Murmur GI/Abdominal: Normal Bowel Sounds, Soft, Non-Tender, No Abnormal Bruit Back Exam: Normal Inspection. No: CVA Tenderness (L), CVA Tenderness (R) Extremities: Pedal Edema (2+ bilaterally of chronic nature) Neurological: Alert, Oriented, Normal Cognition Psychiatric: Normal Affect, Normal Mood Skin Exam: Warm, Dry, Intact, Normal Color, No Rash, Ecchymosis (Anterior abdomen secondary to insulin injections and recent Coumadin use) Lymphatic: No Adenopathy EKG INTERPRETATION EKG Date: 05/28/19 Time: 20:20 Rhythm: NSR Rate (Beats/Min): 90 Mikado: Normal P-Wave: Present QRS: RBBB ST-T: Other QT: Normal Comparison: No Change (from 05/18/19) Course - Vital Signs Last Recorded V/S: Last Vital Signs Temp 97.7 F 05/28/19 20:15 Pulse 90 05/28/19 20:15 Resp 18 05/28/19 20:15 BP 118/84 05/28/19 20:15 Pulse Ox 99 05/28/19 20:15 - Orders/Labs/Meds Orders: Active Orders 24 hr Category Date Time Status EKG Documentation Completion [RC] ASDIRECTED Care 05/28/19 20:21 Ordered Peripheral IV Care [RC] . DIRECTED Care 05/28/19 20:21 Ordered Chest 1V Frontal [CR] Stat Exams 05/28/19 20:19 Ordered B-TYPE NATRIURETIC PEPTIDE,BNP [CHEM] Stat Lab 05/28/19 20:24 Ordered CBC WITH AUTO DIFF [HEME] Stat Lab 05/28/19 20:19 Ordered COMPREHENSIVE METABOLIC PN,CMP [CHEM] Stat Lab 05/28/19 20:19 Ordered D-DIMER QUANTITATIVE [COAG] Stat Lab 05/28/19 20:19 Ordered INR,PT,PROTHROMBIN TIME [COAG] Stat Lab 05/28/19 20:19 Ordered MAGNESIUM [CHEM] Stat Lab 05/28/19 20:19 Ordered PTT,PARTIAL THROMBOPLSTIN TIME [COAG] Stat Lab 05/28/19 20:19 Ordered TROPONIN I [CHEM] Stat Lab 05/28/19 20:19 Ordered Sodium Chloride 0.9% [Saline Flush] Med 05/28/19 20:21 Ordered 10 ml FLUSH Q8HR PRN Peripheral IV Insertion Adult [OM.PC] Routine Oth 05/28/19 20:21 Ordered EKG 12 Lead [EK] Routine Ther 05/28/19 20:19 Ordered Medication Orders Sodium Chloride (Saline Flush) 10 ml FLUSH Q8HR PRN PRN Reason: keep vein open Meds: Medications Generic Name Dose Route Start Last Admin Trade Name Freq PRN Reason Stop Dose Admin Sodium Chloride 10 ml 05/28/19 20:21 Saline Flush FLUSH Q8HR PRN keep vein open - Radiology Interpretation Free Text/Narrative:: Chest x-ray shows moderate congestive heart failure - Re-Assessments/Exams Free Text/Narrative Re-Assessment/Exam: 05/28/19 22:22 Patient afebrile, vital signs stable, sat 99% on 5 L nasal cannula. Patient denies chest pain, shortness of breath is relieved. Discussed case with Dr. Rosa Michel, and patient will be admitted inpatient. Departure - Departure Time of Disposition: 22:23 Disposition: Admitted As Inpatient 66 Condition: Fair Clinical Impression: CHF (congestive heart failure) Qualifiers: Heart failure type: unspecified Heart failure chronicity: acute on chronic Qualified Code(s): I50.9 - Heart failure, unspecified - Discharge Information Referrals: Brenda Gomez MD [Primary Care Provider] - Sepsis Event Note - Evaluation Sepsis Screening Result: No Definite Risk - Focused Exam Vital Signs: Vital Signs Temp Pulse Resp BP Pulse Ox 05/28/19 20:15 97.7 F 90 18 118/84 99 Date Exam was Performed: 05/28/19 Time Exam was Performed: 20:29 - My Orders Last 24 Hours: My Active Orders 05/28/19 20:19 Chest 1V Frontal [CR] Stat CBC WITH AUTO DIFF [HEME] Stat COMPREHENSIVE METABOLIC PN,CMP [CHEM] Stat D-DIMER QUANTITATIVE [COAG] Stat INR,PT,PROTHROMBIN TIME [COAG] Stat MAGNESIUM [CHEM] Stat PTT,PARTIAL THROMBOPLSTIN TIME [COAG] Stat TROPONIN I [CHEM] Stat EKG 12 Lead [EK] Routine 05/28/19 20:21 EKG Documentation Completion [RC] ASDIRECTED Peripheral IV Care [RC] . DIRECTED Sodium Chloride 0.9% [Saline Flush] 10 ml FLUSH Q8HR PRN Peripheral IV Insertion Adult [OM.PC] Routine 05/28/19 20:24 B-TYPE NATRIURETIC PEPTIDE,BNP [CHEM] Stat - Assessment/Plan Admission H&P: Please use this note as an admission H&P Last 24 Hours: My Active Orders 05/28/19 20:19 Chest 1V Frontal [CR] Stat CBC WITH AUTO DIFF [HEME] Stat COMPREHENSIVE METABOLIC PN,CMP [CHEM] Stat D-DIMER QUANTITATIVE [COAG] Stat INR,PT,PROTHROMBIN TIME [COAG] Stat MAGNESIUM [CHEM] Stat PTT,PARTIAL THROMBOPLSTIN TIME [COAG] Stat TROPONIN I [CHEM] Stat EKG 12 Lead [EK] Routine 05/28/19 20:21 EKG Documentation Completion [RC] ASDIRECTED Peripheral IV Care [RC] . DIRECTED Sodium Chloride 0.9% [Saline Flush] 10 ml FLUSH Q8HR PRN Peripheral IV Insertion Adult [OM.PC] Routine 05/28/19 20:24 B-TYPE NATRIURETIC PEPTIDE,BNP [CHEM] Stat Assessment:: CHF Plan: Admission
--- NOTE | 2019-05-28 20:46 | CR ---
[id number] RAD/RAD Chest Portable EXAM: PORTABLE CHEST INDICATION: CHEST PAIN COMPARISON: May 18, 2019. DISCUSSION: Stable cardiomegaly. Residual or recurrent pulmonary edema has mildly improved relative to the previous examination. Development of a small left effusion. Prior sternotomy. Coronary artery stent. IMPRESSION: 1. Mild to moderate congestive heart failure, decreased relative to the prior study. 2. Development of a small left effusion. Justus Lerma MD 05/28/19 2045 Thank you for allowing us to participate in the care of your patient.
[2019-05-28 20:58] LABS: ANION GAP 11.3 mmol/L (5-15); CHLORIDE,CL 102 mmol/L (98-115); SODIUM,NA 139 mmol/L (136-145)
[2019-05-28] MEDS: Sodium Chloride 0.9% 10 ML Syringe FLUSH PRN (20:58)
[2019-05-28] MEDS ORDERED: Furosemide 40 MG/4 ML VIAL IVPUSH ONE (21:07)
[2019-05-28] MEDS ORDERED: Iopamidol 755 Mg/ML 100 ML Bottle IV ONE (21:24)
[2019-05-28] MEDS ORDERED: Sodium Chloride 0.9% 100 ML IV SCH (21:30)
[2019-05-28] MEDS ORDERED: Albuterol/Ipratropium 3.0-0.5 MG/3 ML Neb Soln NEB PRN (22:23)
[2019-05-28] MEDS ORDERED: Insulin Aspart 100 Units/ML 3 ML Pen SUBCUT PRN (22:27)
[2019-05-28] MEDS ORDERED: Insulin Glargine,Human Rec. Analog 100 Units/ML 3 ML Pen ONE (23:55)
[2019-05-29] MEDS ORDERED: Insulin Glargine,Human Rec. Analog 100 Units/ML 3 ML Pen SUBCUT ONE
[2019-05-29] MEDS ORDERED: Non-Formulary Medication 1 Each (Levothyroxine Sodium [Synthroid] 150 MCG) PO SCH (07:30)
[2019-05-29] MEDS: Pantoprazole 40 MG Tab.CR PO SCH (07:53)
[2019-05-29] MEDS: Levothyroxine 75 MCG Tab PO SCH (07:53)
[2019-05-29 07:55] LABS: ANION GAP 10.4 mmol/L (5-15)
--- NOTE | 2019-05-29 08:27 | CT ---
[id number] CT/CT Chest W IV EXAM: CT ANGIOGRAM CHEST INDICATION: Elevated d-dimer. COMPARISON: August 19, 2013 CT and chest radiograph same date. DISCUSSION: Respiratory motion mildly limits assessment, but no large or central pulmonary embolism is identified. There are small bilateral pleural effusions, right greater than left. Bilateral septal thickening, bilateral groundglass opacities, and right greater than left airspace opacities and groundglass. The heart is enlarged and these changes are consistent with fluid retention in the context of cardiac insufficiency. Partial atelectasis of the lower lobes related to the underlying effusions. The airspace opacities are more prominent in the right upper lobe likely representing asymmetric edema, but superimposed infiltrates cannot be entirely excluded, correlate with clinical signs and symptoms. There are changes of recent median sternotomy with coronary artery bypass graft placement. Subcutaneous fat infiltration is seen at the incision site, but no soft tissue gas or drainable collection is identified. Mild nonspecific mediastinal adenopathy with a farm loan representative AP window node measuring 19 x 13 mm and right paratracheal 20 x 15 mm. A mild thick-walled appearance of the gallbladder could relate to the underlying fluid retention, but is nonspecific and could be seen in the context of cholecystitis. Ultrasound and/or HIDA scan could provide further evaluation if clinical signs and symptoms are equivocal. IMPRESSION: 1. No large or central pulmonary embolism. 2. Moderate congestive heart failure. Bilateral airspace opacities likely represent edema, but concomitant infection could have the same appearance. 3. Mild gallbladder wall thickening is thought to relate to the underlying volume overload. Ultrasound and/or HIDA scan could further evaluate the gallbladder there is clinical suspicion for cholecystitis. Justus Lerma MD 05/29/19 0826 Thank you for allowing us to participate in the care of your patient.
[2019-05-29] MEDS: Carvedilol 6.25 MG Tab PO SCH ×2 (08:31→21:24)
[2019-05-29] MEDS: Aspirin 81 MG Tab.EC PO SCH (08:33)
[2019-05-29] MEDS ORDERED: DULOXETINE 90 MG PO SCH (09:00)
[2019-05-29] MEDS: Fluticasone/Salmeterol 250-50 MCG Inhalation Powder 14/Diskus INH SCH ×2 (09:27→21:20)
[2019-05-29] MEDS ORDERED: Furosemide 40 MG/4 ML VIAL IVPUSH ONE (09:48)
[2019-05-29 10:04] LABS: HEMOGLOBIN A1C 7.6 % (4.3-5.7)
[2019-05-29] MEDS: Sodium Chloride 0.9% 10 ML Syringe FLUSH PRN (10:05)
--- NOTE | 2019-05-29 11:07 | PCM.PN ---
- General Info Date of Service: 05/29/19 Admission Dx/Problem (Free Text): Patient is a 64-year-old female who presented to the emergency department last evening with a complaint of shortness of breath. Patient has an extensive history of congestive heart failure, cardiopulmonary arrest 05/18/2019, and coronary artery bypass surgery December 2018. Results of evaluation was negative for cardiac event, however, low oxygen saturation, elevation of BNP and congestive heart failure on x-ray deemed inpatient admission. Subjective Update: BNP at 2200 yesterday was at 1200, this morning increased to 1700 even though 20 mg of Lasix was given last night. However, patient oxygen saturation improved, work of breathing lessened, patient feels much better and less short of breath. Functional Status: Reports: Pain Controlled - Review of Systems General: Reports: No Symptoms HEENT: Reports: No Symptoms Pulmonary: Reports: Shortness of Breath (Improved) Cardiovascular: Reports: No Symptoms Gastrointestinal: Reports: No Symptoms Genitourinary: Reports: No Symptoms Musculoskeletal: Reports: No Symptoms Skin: Reports: No Symptoms Neurological: Reports: No Symptoms Psychiatric: Reports: No Symptoms - Patient Data Vitals - Most Recent: Last Vital Signs Temp 97.6 F 05/29/19 06:30 Pulse 82 05/29/19 08:31 Resp 16 05/29/19 06:30 BP 127/73 05/29/19 08:31 Pulse Ox 96 05/29/19 06:30 Weight - Most Recent: 299 lb 4.8 oz I&O - Last 24 Hours: Intake & Output 05/28/19 05/29/19 05/29/19 22:59 06:59 14:59 Intake Total 800 Output Total 3050 Balance -2250 Lab Results Last 24 Hours: Laboratory Results - last 24 hr 05/28/19 05/28/19 05/28/19 Range/Units 20:25 20:25 20:25 WBC 8.54 D (5.00-10.00) 10^3/uL RBC 2.86 L (3.80-5.50) 10^6/uL Hgb 7.5 L D (12.0-16.0) g/dL Hct 25.0 L (37.0-47.0) % MCV 87.4 D (82.0-92.0) fL MCH 26.2 L (27.0-31.0) pg MCHC 30.0 L (32.0-36.0) g/dL RDW 19.4 H (11.5-14.5) % Plt Count 283 (150-400) 10^3/uL MPV 9.4 (7.4-10.4) fL Immature Gran % (Auto) 1.1 (0.0-5.0) % Neut % (Auto) 69.6 (50.0-70.0) % Lymph % (Auto) 14.4 L (20.0-40.0) % [place] % (Auto) 11.2 H (2.0-8.0) % Eos % (Auto) 2.9 (1.0-3.0) % Baso % (Auto) 0.8 (0.0-1.0) % Immature Gran # (Auto) 0.09 (0.00-0.50) 10^3/uL Neut # (Auto) 5.94 (2.50-7.00) 10^3/uL Lymph # (Auto) 1.23 (1.00-4.00) 10^3/uL [place] # (Auto) 0.96 H (0.10-0.80) 10^3/uL Eos # (Auto) 0.25 (0.10-0.30) 10^3/uL Baso # (Auto) 0.07 (0.00-0.10) 10^3/uL PT 9.9 D (8.9-11.4) SEC INR 1.0 (0.9-1.1) APTT 23.4 (23.1-31.9) SEC D-Dimer, Quantitative 948 H (<400) ng/mL Sodium 139 (136-145) mmol/L Potassium 4.0 D (3.3-5.3) mmol/L Chloride 102 (98-115) mmol/L Carbon Dioxide 29.7 D (21.0-32.0) mmol/L Anion Gap 11.3 (5-15) mmol/L BUN 28 H D (6-25) mg/dL Creatinine 1.41 H (0.51-1.17) mg/dL Est Cr Clr Drug Dosing 30.42 mL/min Estimated GFR (MDRD) 38 mL/min Glucose 305 H (75 - 99) mg/dL Hemoglobin A1c (4.3-5.7) % Calcium 8.0 L (8.7-10.3) mg/dL Magnesium 1.8 (1.8-2.4) mg/dL Total Bilirubin 0.4 (0.2-1.0) mg/dL AST 18 (15-37) U/L ALT 78 (12-78) U/L Alkaline Phosphatase 134 H (46-116) IU/L Troponin I < 0.04 (0.00-0.070) ng/mL B-Natriuretic Peptide (0-100) pg/mL Total Protein 6.1 L (6.4-8.2) g/dL Albumin 2.39 L (3.00-4.80) g/dL 05/28/19 05/29/19 05/29/19 Range/Units 20:25 07:25 07:25 WBC 9.18 (5.00-10.00) 10^3/uL RBC 2.98 L (3.80-5.50) 10^6/uL Hgb 7.6 L (12.0-16.0) g/dL Hct 25.8 L (37.0-47.0) % MCV 86.6 (82.0-92.0) fL MCH 25.5 L (27.0-31.0) pg MCHC 29.5 L (32.0-36.0) g/dL RDW 19.2 H (11.5-14.5) % Plt Count 315 (150-400) 10^3/uL MPV 9.8 (7.4-10.4) fL Immature Gran % (Auto) 0.7 (0.0-5.0) % Neut % (Auto) 73.1 H (50.0-70.0) % Lymph % (Auto) 13.3 L (20.0-40.0) % [place] % (Auto) 9.8 H (2.0-8.0) % Eos % (Auto) 2.2 (1.0-3.0) % Baso % (Auto) 0.9 (0.0-1.0) % Immature Gran # (Auto) 0.06 (0.00-0.50) 10^3/uL Neut # (Auto) 6.72 (2.50-7.00) 10^3/uL Lymph # (Auto) 1.22 (1.00-4.00) 10^3/uL [place] # (Auto) 0.90 H (0.10-0.80) 10^3/uL Eos # (Auto) 0.20 (0.10-0.30) 10^3/uL Baso # (Auto) 0.08 (0.00-0.10) 10^3/uL PT (8.9-11.4) SEC INR (0.9-1.1) APTT (23.1-31.9) SEC D-Dimer, Quantitative (<400) ng/mL Sodium (136-145) mmol/L Potassium (3.3-5.3) mmol/L Chloride (98-115) mmol/L Carbon Dioxide (21.0-32.0) mmol/L Anion Gap (5-15) mmol/L BUN (6-25) mg/dL Creatinine (0.51-1.17) mg/dL Est Cr Clr Drug Dosing mL/min Estimated GFR (MDRD) mL/min Glucose (75 - 99) mg/dL Hemoglobin A1c (4.3-5.7) % Calcium (8.7-10.3) mg/dL Magnesium (1.8-2.4) mg/dL Total Bilirubin (0.2-1.0) mg/dL AST (15-37) U/L ALT (12-78) U/L Alkaline Phosphatase (46-116) IU/L Troponin I (0.00-0.070) ng/mL B-Natriuretic Peptide 1260 H 1740 H (0-100) pg/mL Total Protein (6.4-8.2) g/dL Albumin (3.00-4.80) g/dL 05/29/19 05/29/19 Range/Units 07:25 07:25 WBC (5.00-10.00) 10^3/uL RBC (3.80-5.50) 10^6/uL Hgb (12.0-16.0) g/dL Hct (37.0-47.0) % MCV (82.0-92.0) fL MCH (27.0-31.0) pg MCHC (32.0-36.0) g/dL RDW (11.5-14.5) % Plt Count (150-400) 10^3/uL MPV (7.4-10.4) fL Immature Gran % (Auto) (0.0-5.0) % Neut % (Auto) (50.0-70.0) % Lymph % (Auto) (20.0-40.0) % [place] % (Auto) (2.0-8.0) % Eos % (Auto) (1.0-3.0) % Baso % (Auto) (0.0-1.0) % Immature Gran # (Auto) (0.00-0.50) 10^3/uL Neut # (Auto) (2.50-7.00) 10^3/uL Lymph # (Auto) (1.00-4.00) 10^3/uL [place] # (Auto) (0.10-0.80) 10^3/uL Eos # (Auto) (0.10-0.30) 10^3/uL Baso # (Auto) (0.00-0.10) 10^3/uL PT (8.9-11.4) SEC INR (0.9-1.1) APTT (23.1-31.9) SEC D-Dimer, Quantitative (<400) ng/mL Sodium 138 (136-145) mmol/L Potassium 3.9 (3.3-5.3) mmol/L Chloride 101 (98-115) mmol/L Carbon Dioxide 30.5 (21.0-32.0) mmol/L Anion Gap 10.4 (5-15) mmol/L BUN 26 H (6-25) mg/dL Creatinine 1.32 H (0.51-1.17) mg/dL Est Cr Clr Drug Dosing 32.49 mL/min Estimated GFR (MDRD) 41 mL/min Glucose 300 H (75 - 99) mg/dL Hemoglobin A1c 7.6 H (4.3-5.7) % Calcium 8.7 (8.7-10.3) mg/dL Magnesium (1.8-2.4) mg/dL Total Bilirubin 0.6 (0.2-1.0) mg/dL AST 17 (15-37) U/L ALT 73 (12-78) U/L Alkaline Phosphatase 136 H (46-116) IU/L Troponin I (0.00-0.070) ng/mL B-Natriuretic Peptide (0-100) pg/mL Total Protein 6.4 (6.4-8.2) g/dL Albumin 2.52 L (3.00-4.80) g/dL Med Orders - Current: Current Medications Albuterol/Ipratropium (Duoneb 3.0-0.5 Mg/3 Ml) 3 ml NEB Q4H PRN PRN Reason: Shortness Of Breath/wheezing Aspirin (Halfprin) 81 mg PO DAILY [facility] Last Admin: 05/29/19 08:33 Dose: 81 mg Carvedilol (Coreg) 6.25 mg PO BID [facility] Last Admin: 05/29/19 08:31 Dose: 6.25 mg Insulin Aspart (Novolog) 15 unit SUBCUT QID PRN PRN Reason: Hyperglycemia Levothyroxine Sodium (Levothyroxine) 150 mcg PO ACBREAKFAST [facility] Last Admin: 05/29/19 07:53 Dose: 150 mcg Loperamide HCl (Imodium) 2 mg PO Q4H PRN PRN Reason: Diarrhea Non-Formulary Medication (Duloxetine [Cymbalta]) 90 mg PO DAILY [facility] Last Admin: 05/29/19 08:32 Dose: 90 mg Non-Formulary Medication (Insulin Glarg,Human.Rec.Analog [Lantus]) 15 units SQ BEDTIME [facility] Pantoprazole Sodium (Protonix) 40 mg PO ACBREAKFAST [facility] Last Admin: 05/29/19 07:53 Dose: 40 mg Fluticasone/Salmeterol (Advair Diskus 250-50) 1 puff INH BID [facility] Last Admin: 05/29/19 09:27 Dose: 1 puff Sodium Chloride (Saline Flush) 10 ml FLUSH Q8HR PRN PRN Reason: keep vein open Last Admin: 05/29/19 10:05 Dose: 10 ml Discontinued Medications Furosemide (Lasix) 20 mg IVPUSH NOW ONE Stop: 05/28/19 21:08 Last Admin: 05/28/19 21:45 Dose: 20 mg Furosemide (Lasix) 40 mg IVPUSH NOW ONE Stop: 05/29/19 09:49 Last Admin: 05/29/19 10:01 Dose: 40 mg Sodium Chloride (Normal Saline) 100 mls @ 200 mls/hr IV ASDIRECTED [facility] Last Admin: 05/28/19 21:50 Dose: 200 mls/hr Insulin Glargine (Lantus Solostar) Confirm Administered Dose 300 units .ROUTE .STK-MED ONE Stop: 05/28/19 23:56 Last Admin: 05/29/19 02:13 Dose: Not Given Insulin Glargine (Lantus Solostar) 15 units SUBCUT BEDTIME ONE Stop: 05/29/19 00:01 Last Admin: 05/29/19 00:05 Dose: 15 units Iopamidol (Isovue-370 (76%)) 100 ml IV ONETIME ONE Stop: 05/28/19 21:25 Last Admin: 05/28/19 21:50 Dose: 100 ml Non-Formulary Medication (Levothyroxine Sodium [Synthroid]) 150 mcg PO ACBREAKFAST [facility] Last Admin: 05/29/19 09:36 Dose: Not Given - Exam Quality Assessment: Supplemental Oxygen General: Alert, Oriented HEENT: Pupils Equal, Pupils Reactive, Mucous Membr. Moist/[place] Neck: Supple Lungs: Clear to Auscultation, Normal Respiratory Effort. No: Crackles, Rales, Wheezing Cardiovascular: Regular Rate, Regular Rhythm, Murmurs GI/Abdominal Exam: Normal Bowel Sounds, Soft, Non-Tender, No Abnormal Bruit Back Exam: Normal Inspection. No: CVA Tenderness (L), CVA Tenderness (R) Extremities: Normal Inspection, Pedal Edema (2+ of chronic nature. No change) Skin: Warm, Dry, Intact Neurological: No New Focal Deficit Psy/Mental Status: Alert, Normal Affect, Normal Mood Sepsis Event Note - Evaluation Sepsis Screening Result: No Definite Risk - Focused Exam Vital Signs: Vital Signs Temp Pulse Pulse Resp BP BP BP 05/29/19 08:31 82 127/73 05/29/19 06:30 97.6 F 80 16 128/61 05/29/19 03:00 97.1 F 77 18 128/48 L 05/28/19 23:50 05/28/19 23:05 Pulse Ox Pulse Ox 05/29/19 08:31 05/29/19 06:30 96 05/29/19 03:00 93 L 05/28/19 23:50 93 L 05/28/19 23:05 98 Date Exam was Performed: 05/29/19 Time Exam was Performed: 11:01 - Problem List Review Problem List Initiated/Reviewed/Updated: Yes - My Orders Last 24 Hours: My Active Orders 05/28/19 20:19 EKG 12 Lead [EK] Routine 05/28/19 20:21 Sodium Chloride 0.9% [Saline Flush] 10 ml FLUSH Q8HR PRN Peripheral IV Insertion Adult [OM.PC] Routine 05/28/19 22:23 Up to Chair [RC] ASDIRECTED Respiratory Care Assess and Treatment [CONS] Routine Albuterol/Ipratropium [DuoNeb 3.0-0.5 MG/3 ML] 3 ml NEB Q4H PRN Resuscitation Status Routine 05/28/19 22:24 Patient Status [ADT] Routine Oxygen Therapy [RC] PRN VTE/DVT Education [RC] PER UNIT ROUTINE Vital Signs [RC] 0300,0700,1100,1500,1900,2300 05/28/19 22:27 RT Aerosol Therapy [RC] ASDIRECTED Insulin Aspart [NovoLOG] 15 unit SUBCUT QID PRN 05/28/19 22:40 CPAP Adult [RT BiPAP/CPAP] [RC] ASDIRECTED 05/29/19 02:51 Loperamide [Imodium] 2 mg PO Q4H PRN 05/29/19 07:30 Pantoprazole [ProTONIX] 40 mg PO ACBREAKFAST 05/29/19 09:00 Aspirin [Halfprin] 81 mg PO DAILY DULoxetine [Cymbalta] 90 mg PO DAILY Fluticasone/Salmeterol [Advair Diskus 250-50] 1 puff INH BID carvediloL [Coreg] 6.25 mg PO BID 05/29/19 21:00 Insulin Glarg,Human.Rec.Analog [Lantus] 15 units SQ BEDTIME 05/29/19 Breakfast [employer] Diet [DIET] 05/30/19 07:30 Levothyroxine 150 mcg PO ACBREAKFAST 05/31/19 05:11 B-TYPE NATRIURETIC PEPTIDE,BNP [CHEM] AM CBC WITH AUTO DIFF [HEME] AM COMPREHENSIVE METABOLIC PN,CMP [CHEM] AM - Assessment Assessment:: Patient looks much better, bilateral breath sounds clear, although increase in BMP to 1700. 40 mg Lasix will be administered this morning and patient will be followed closely with diabetic control per insulin regimen. Lab work will be repeated in a.m. - Plan Plan:: Continue management of congestive heart failure and diabetic control
[2019-05-29] MEDS: Insulin Aspart 100 Units/ML 3 ML Pen SUBCUT SCH ×2 (12:04→18:14)
[2019-05-29] MEDS: Loperamide 2 MG Cap PO PRN ×2 (13:49→22:56)
[2019-05-29] MEDS: Acetaminophen/Codeine 300-30 MG Tab PO PRN (21:24)
[2019-05-29] MEDS: INSULIN GLARG HUMAN REC ANALOG 15 UNIT SQ SCH (21:26)
[2019-05-30] MEDS: Levothyroxine 75 MCG Tab PO SCH (07:55)
[2019-05-30] MEDS: Pantoprazole 40 MG Tab.CR PO SCH (07:55)
[2019-05-30] MEDS: Insulin Aspart 100 Units/ML 3 ML Pen SUBCUT SCH ×3 (08:18→18:10)
[2019-05-30] MEDS: Carvedilol 6.25 MG Tab PO SCH ×2 (08:20→20:42)
[2019-05-30] MEDS: Aspirin 81 MG Tab.EC PO SCH (08:21)
[2019-05-30] MEDS: DULoxetine 30 MG Cap PO SCH (08:21)
[2019-05-30] MEDS: Fluticasone/Salmeterol 250-50 MCG Inhalation Powder 14/Diskus INH SCH ×2 (08:56→20:44)
[2019-05-30 11:50] LABS: ANION GAP 11.7 mmol/L (5-15)
[2019-05-30] MEDS ORDERED: Furosemide 40 MG/4 ML VIAL IVPUSH ONE (12:33)
[2019-05-30] MEDS ORDERED: Acetaminophen 325 MG Tab PO ONE (12:33)
--- NOTE | 2019-05-30 12:42 | PCM.PN ---
- General Info Date of Service: 05/30/19 Admission Dx/Problem (Free Text): Patient is a 64-year-old female who presented to the emergency department last evening with a complaint of shortness of breath. Patient has an extensive history of congestive heart failure, cardiopulmonary arrest 05/18/2019, and coronary artery bypass surgery December 2018. Results of evaluation was negative for cardiac event, however, low oxygen saturation, elevation of BNP and congestive heart failure on x-ray deemed inpatient admission. Subjective Update: Patient afebrile, vital signs stable, feels mildly tired and short of breath with relation to bathroom. - Review of Systems General: Reports: Fatigue HEENT: Reports: No Symptoms Pulmonary: Reports: Shortness of Breath (Minimal with ambulation) Cardiovascular: Reports: No Symptoms Gastrointestinal: Reports: No Symptoms Genitourinary: Reports: No Symptoms Musculoskeletal: Reports: No Symptoms Skin: Reports: No Symptoms Neurological: Reports: No Symptoms Psychiatric: Reports: No Symptoms - Patient Data Vitals - Most Recent: Last Vital Signs Temp 96.8 F 05/30/19 07:00 Pulse 84 05/30/19 08:20 Resp 16 05/30/19 07:00 BP 126/89 05/30/19 08:20 Pulse Ox 94 L 05/30/19 08:57 Weight - Most Recent: 301 lb 4.8 oz I&O - Last 24 Hours: Intake & Output 05/29/19 05/30/19 05/30/19 22:59 06:59 14:59 Intake Total 200 50 Output Total 800 250 Balance -600 -200 Lab Results Last 24 Hours: Laboratory Results - last 24 hr 05/30/19 05/30/19 Range/Units 11:20 11:20 WBC 6.81 (5.00-10.00) 10^3/uL RBC 2.78 L (3.80-5.50) 10^6/uL Hgb 7.1 L (12.0-16.0) g/dL Hct 24.2 L (37.0-47.0) % MCV 87.1 (82.0-92.0) fL MCH 25.5 L (27.0-31.0) pg MCHC 29.3 L (32.0-36.0) g/dL RDW 19.1 H (11.5-14.5) % Plt Count 252 (150-400) 10^3/uL MPV 9.5 (7.4-10.4) fL Immature Gran % (Auto) 0.6 (0.0-5.0) % Neut % (Auto) 60.1 (50.0-70.0) % Lymph % (Auto) 20.9 (20.0-40.0) % [place] % (Auto) 12.9 H (2.0-8.0) % Eos % (Auto) 4.0 H (1.0-3.0) % Baso % (Auto) 1.5 H (0.0-1.0) % Immature Gran # (Auto) 0.04 (0.00-0.50) 10^3/uL Neut # (Auto) 4.10 (2.50-7.00) 10^3/uL Lymph # (Auto) 1.42 (1.00-4.00) 10^3/uL [place] # (Auto) 0.88 H (0.10-0.80) 10^3/uL Eos # (Auto) 0.27 (0.10-0.30) 10^3/uL Baso # (Auto) 0.10 (0.00-0.10) 10^3/uL Sodium 139 (136-145) mmol/L Potassium 4.0 (3.3-5.3) mmol/L Chloride 101 (98-115) mmol/L Carbon Dioxide 30.3 (21.0-32.0) mmol/L Anion Gap 11.7 (5-15) mmol/L BUN 26 H (6-25) mg/dL Creatinine 1.30 H (0.51-1.17) mg/dL Est Cr Clr Drug Dosing 32.99 mL/min Estimated GFR (MDRD) 41 mL/min Glucose 271 H (75 - 99) mg/dL Calcium 8.3 L (8.7-10.3) mg/dL B-Natriuretic Peptide 789 H (0-100) pg/mL Med Orders - Current: Current Medications Acetaminophen/Codeine Phosphate (Tylenol With Codeine No.3 300mg/30mg) 1 tab PO Q4H PRN PRN Reason: Pain Last Admin: 05/29/19 21:24 Dose: 1 tab Albuterol/Ipratropium (Duoneb 3.0-0.5 Mg/3 Ml) 3 ml NEB Q4H PRN PRN Reason: Shortness Of Breath/wheezing Aspirin (Halfprin) 81 mg PO DAILY [facility] [place] Last Admin: 05/30/19 08:21 Dose: 81 mg Carvedilol (Coreg) 6.25 mg PO BID [facility] Last Admin: 05/30/19 08:20 Dose: 6.25 mg Duloxetine HCl (Cymbalta) 90 mg PO DAILY [facility] Last Admin: 05/30/19 08:21 Dose: 90 mg Insulin Aspart (Novolog) 0 unit SUBCUT TIDMEALS [facility] Last Admin: 05/30/19 12:15 Dose: 12 unit Levothyroxine Sodium (Levothyroxine) 150 mcg PO ACBREAKFAST [facility] Last Admin: 05/30/19 07:55 Dose: 150 mcg Loperamide HCl (Imodium) 2 mg PO Q4H PRN PRN Reason: Diarrhea Last Admin: 05/29/19 22:56 Dose: 2 mg Non-Formulary Medication (Insulin Glarg,Human.Rec.Analog [Lantus]) 15 units SQ BEDTIME [facility] [place] Last Admin: 05/29/19 21:26 Dose: 15 units Pantoprazole Sodium (Protonix) 40 mg PO ACBREAKFAST [facility] [place] Last Admin: 05/30/19 07:55 Dose: 40 mg Fluticasone/Salmeterol (Advair Diskus 250-50) 1 puff INH BID [facility] Last Admin: 05/30/19 08:56 Dose: 1 puff Sodium Chloride (Saline Flush) 10 ml FLUSH Q8HR PRN PRN Reason: keep vein open Last Admin: 05/29/19 10:05 Dose: 10 ml Discontinued Medications Furosemide (Lasix) 20 mg IVPUSH NOW ONE Stop: 05/28/19 21:08 Last Admin: 05/28/19 21:45 Dose: 20 mg Furosemide (Lasix) 40 mg IVPUSH NOW ONE Stop: 05/29/19 09:49 Last Admin: 05/29/19 10:01 Dose: 40 mg Sodium Chloride (Normal Saline) 100 mls @ 200 mls/hr IV ASDIRECTED [facility] [place] Last Admin: 05/28/19 21:50 Dose: 200 mls/hr Insulin Aspart (Novolog) 15 unit SUBCUT QID PRN PRN Reason: Hyperglycemia Insulin Glargine (Lantus Solostar) Confirm Administered Dose 300 units .ROUTE .STK-MED ONE Stop: 05/28/19 23:56 Last Admin: 05/29/19 02:13 Dose: Not Given Insulin Glargine (Lantus Solostar) 15 units SUBCUT BEDTIME ONE Stop: 05/29/19 00:01 Last Admin: 05/29/19 00:05 Dose: 15 units Iopamidol (Isovue-370 (76%)) 100 ml IV ONETIME ONE Stop: 05/28/19 21:25 Last Admin: 05/28/19 21:50 Dose: 100 ml Non-Formulary Medication (Duloxetine [Cymbalta]) 90 mg PO DAILY [facility] [place] Last Admin: 05/29/19 08:32 Dose: 90 mg Non-Formulary Medication (Levothyroxine Sodium [Synthroid]) 150 mcg PO ACBREAKFAST [facility] [place] Last Admin: 05/29/19 09:36 Dose: Not Given - Exam Quality Assessment: Supplemental Oxygen (1L nasal cannula) General: Alert, Oriented HEENT: Pupils Equal, Pupils Reactive, Mucous Membr. Moist/[place] Neck: Supple Lungs: Clear to Auscultation, Normal Respiratory Effort Cardiovascular: Regular Rate, Regular Rhythm GI/Abdominal Exam: Normal Bowel Sounds, Soft, Non-Tender Back Exam: Normal Inspection. No: CVA Tenderness (L), CVA Tenderness (R) Extremities: Normal Inspection Skin: Warm, Dry, Intact Neurological: No New Focal Deficit Psy/Mental Status: Alert, Normal Affect, Normal Mood Physical Findings Comments:: Patient appears well and without complaints. Sepsis Event Note - Evaluation Sepsis Screening Result: No Definite Risk - Focused Exam Vital Signs: Vital Signs Temp Pulse Pulse Resp BP BP Pulse Ox 05/30/19 08:57 05/30/19 08:23 05/30/19 08:20 84 126/89 05/30/19 07:00 96.8 F 75 16 125/67 91 L 05/30/19 03:00 96.9 F 77 18 105/58 L 92 L Pulse Ox Pulse Ox 05/30/19 08:57 94 L 05/30/19 08:23 97 05/30/19 08:20 05/30/19 07:00 05/30/19 03:00 Date Exam was Performed: 05/30/19 Time Exam was Performed: 12:44 - Problem List Review Problem List Initiated/Reviewed/Updated: Yes - My Orders Last 24 Hours: My Active Orders 05/29/19 12:00 Insulin Aspart [NovoLOG] See Dose Instructions SUBCUT TIDMEALS 05/29/19 20:53 Acetaminophen/Codeine [Tylenol with Codeine No.3 300MG/30MG] 1 tab PO Q4H PRN 05/29/19 21:00 Insulin Glarg,Human.Rec.Analog [Lantus] 15 units SQ BEDTIME 05/30/19 07:30 Levothyroxine 150 mcg PO ACBREAKFAST 05/30/19 09:00 DULoxetine [Cymbalta] 90 mg PO DAILY 05/30/19 11:57 Blood Glucose Check, Bedside [RC] TIDAC 05/30/19 12:33 RED BLOOD CELLS LP [BBK] Stat TYPE AND SCREEN [BBK] Stat Acetaminophen [Tylenol] 650 mg PO NOW ONE Furosemide [Lasix] 20 mg IVPUSH NOW ONE Blood Transfusion Reflex Orders [OM.PC] Routine Transfuse Red Blood Cells [COMM] Stat 05/30/19 12:34 Verify Patient Consent Obtain [RC] ASDIRECTED 05/31/19 05:11 B-TYPE NATRIURETIC PEPTIDE,BNP [CHEM] AM CBC WITH AUTO DIFF [HEME] AM COMPREHENSIVE METABOLIC PN,CMP [CHEM] AM - Assessment Assessment:: Patient looks much better, bilateral breath sounds clear. Decrease in BMP to 700 , however, also decrease in hemoglobin to 7.1. Discussed case with Dr. Rosa Michel. Concern for decrease in hemoglobin in 24 hours. Patient did undergo several transfusions previously for anemia. Decision for correction based on need and improved renal function, 20 mg Lasix will be administered and 1 unit PRBCs will be transfused. Lab work will be repeated in a.m. Patient will be closely followed. - Plan Plan:: Continue management of congestive heart failure, anemia, and diabetic control
[2019-05-30] MEDS ORDERED: Sodium Chloride 0.9% 50 ML IV SCH (12:45)
[2019-05-30] MEDS: Sodium Chloride 0.9% 10 ML Syringe FLUSH PRN ×2 (12:53→18:51)
[2019-05-30] MEDS: INSULIN GLARG HUMAN REC ANALOG 15 UNIT SQ SCH (20:45)
[2019-05-31] MEDS: Sodium Chloride 0.9% 10 ML Syringe FLUSH PRN (00:07)
[2019-05-31] MEDS: Levothyroxine 75 MCG Tab PO SCH (06:35)
[2019-05-31] MEDS: Pantoprazole 40 MG Tab.CR PO SCH (06:36)
[2019-05-31 07:34] LABS: ANION GAP 13.3 mmol/L (5-15)
[2019-05-31] MEDS: Insulin Aspart 100 Units/ML 3 ML Pen SUBCUT SCH ×3 (08:10→17:56)
[2019-05-31] MEDS: Aspirin 81 MG Tab.EC PO SCH (08:40)
[2019-05-31] MEDS: DULoxetine 30 MG Cap PO SCH (08:41)
[2019-05-31] MEDS: Carvedilol 6.25 MG Tab PO SCH ×2 (08:41→21:58)
[2019-05-31] MEDS ORDERED: Furosemide 40 MG/4 ML VIAL IVPUSH ONE (08:55)
[2019-05-31] MEDS: Fluticasone/Salmeterol 250-50 MCG Inhalation Powder 14/Diskus INH SCH ×2 (09:18→21:55)
--- NOTE | 2019-05-31 09:39 | PCM.PN ---
- General Info Date of Service: 05/31/19 Admission Dx/Problem (Free Text): Patient is a 64-year-old female who presented to the emergency department last evening with a complaint of shortness of breath. Patient has an extensive history of congestive heart failure, cardiopulmonary arrest 05/18/2019, and coronary artery bypass surgery December 2018. Results of evaluation was negative for cardiac event, however, low oxygen saturation, elevation of BNP and congestive heart failure on x-ray deemed inpatient admission. - Review of Systems Systems Review Comment:: Victorina is seen today on inpatient rounds. She was admitted on 05/28/2019 with SOB , CHF exacerbation and hypoxia. Of note, she has a very complicated medial history. She was actually seen in the ER on 05/18/2019 for decreased level of consciousness. She was afebrile but hypotensive and saturating at 80% on room air which corrected with 4L nasal cannula. She was anemic with an elevated WBC at 35,000 No obvious source of bleeding, hemoglobin was 5.5. CXR showed bilateral infiltrates and she was given Rocephin. Potassium was 6.0, INR was > 18. She was intubated for and shortly after intubation coded and required CPR and epinephrine x 1 dose with ROSC. Her admitting diagnoses to [facility] at that time were: Pulmonary infiltrates. Brief cardiac arrest Acute hypercapnic and hypoxemic respiratory failure secondary to ARDS from pneumonia. ARDS Shock Acute on chronic renal failure secondary to hypoperfusion and ATN Hyperkalemia Anion gap metabolic acidosis secondary to renal failure and lactic acidosis Lactic acidosis Normocytic anemia Leukocytosis Elevated troponin secondary to demand ischemia Ischemic cardiomyopathy, EF 40-45% Acute elevation of INR Hx CABG x 10 December 2018 Hx loculated hemorrhagic pleural effusion s/p chest tube 01/2019 Moganella morganii gram negative bacteremia in 01/2019 s/p cephalosporin antibiotics x 14 days Klebsiella UTI 01/2019 Pseudomonal sternal wound infection 01/2019 Hx of bioprosthetic aortic valve with trace perivalvular regurgitation around the prosthetic aortic valve Uncontrolled DM on insulin Hypothyroidism Hx asthma Sleep apnea on CPAP with hx of narcolepsy HTN She was in the hospital at [facility] from 05/18/2019 - 05/26/2019 and was discharged with home health. She states she was not ready to go home, that she had a temp of 99.2 "and my temp is 96.6 so I had a fever" and also that she needed to go home with oxygen but that was never evaluated or arranged for her. When she got home she was very tired and was using her CPAP most of the day due to difficulty breathing. She eventually ended up in the ER on 05/28/2019 due to low O2 sats (84% at home on RA) and SOB. She was noted to have CHF exacerbation. She was given lasix 20 mg IV initially then the following day 40 mg IV with nice diuresis. She is breathing more easily. She received 1 unit PRBC on 05/30 due to hemoglobin drop from 7.6 to 7.1 without obvious source of bleeding. She is no long on warfarin. Her weight is up 5 pounds today from yesterday and she feels her legs are more swollen. - Patient Data Vitals - Most Recent: Last Vital Signs Temp 96.8 F 05/31/19 06:39 Pulse 86 05/31/19 08:41 Resp 18 05/31/19 06:39 BP 135/70 05/31/19 08:41 Pulse Ox 95 05/31/19 06:39 Weight - Most Recent: 306 lb 6.4 oz I&O - Last 24 Hours: Intake & Output 05/30/19 05/31/19 05/31/19 22:59 06:59 14:59 Intake Total 831 200 Output Total 400 Balance 431 200 Lab Results Last 24 Hours: Laboratory Results - last 24 hr 05/30/19 05/30/19 05/30/19 Range/Units 11:20 11:20 13:45 WBC 6.81 (5.00-10.00) 10^3/uL RBC 2.78 L (3.80-5.50) 10^6/uL Hgb 7.1 L (12.0-16.0) g/dL Hct 24.2 L (37.0-47.0) % MCV 87.1 (82.0-92.0) fL MCH 25.5 L (27.0-31.0) pg MCHC 29.3 L (32.0-36.0) g/dL RDW 19.1 H (11.5-14.5) % Plt Count 252 (150-400) 10^3/uL MPV 9.5 (7.4-10.4) fL Immature Gran % (Auto) 0.6 (0.0-5.0) % Neut % (Auto) 60.1 (50.0-70.0) % Lymph % (Auto) 20.9 (20.0-40.0) % Jasper % (Auto) 12.9 H (2.0-8.0) % Eos % (Auto) 4.0 H (1.0-3.0) % Baso % (Auto) 1.5 H (0.0-1.0) % Immature Gran # (Auto) 0.04 (0.00-0.50) 10^3/uL Neut # (Auto) 4.10 (2.50-7.00) 10^3/uL Lymph # (Auto) 1.42 (1.00-4.00) 10^3/uL Jasper # (Auto) 0.88 H (0.10-0.80) 10^3/uL Eos # (Auto) 0.27 (0.10-0.30) 10^3/uL Baso # (Auto) 0.10 (0.00-0.10) 10^3/uL Sodium 139 (136-145) mmol/L Potassium 4.0 (3.3-5.3) mmol/L Chloride 101 (98-115) mmol/L Carbon Dioxide 30.3 (21.0-32.0) mmol/L Anion Gap 11.7 (5-15) mmol/L BUN 26 H (6-25) mg/dL Creatinine 1.30 H (0.51-1.17) mg/dL Est Cr Clr Drug Dosing 32.99 mL/min Estimated GFR (MDRD) 41 mL/min Glucose 271 H (75 - 99) mg/dL Calcium 8.3 L (8.7-10.3) mg/dL Total Bilirubin (0.2-1.0) mg/dL AST (15-37) U/L ALT (12-78) U/L Alkaline Phosphatase (46-116) IU/L B-Natriuretic Peptide 789 H (0-100) pg/mL Total Protein (6.4-8.2) g/dL Albumin (3.00-4.80) g/dL Blood Type A POSITIVE Gel Antibody Screen Negative Crossmatch See Detail 05/31/19 05/31/19 Range/Units 06:55 06:55 WBC 7.14 (5.00-10.00) 10^3/uL RBC 3.09 L (3.80-5.50) 10^6/uL Hgb 8.0 L (12.0-16.0) g/dL Hct 26.8 L (37.0-47.0) % MCV 86.7 (82.0-92.0) fL MCH 25.9 L (27.0-31.0) pg MCHC 29.9 L (32.0-36.0) g/dL RDW 18.5 H (11.5-14.5) % Plt Count 267 (150-400) 10^3/uL MPV 10.2 (7.4-10.4) fL Immature Gran % (Auto) 0.7 (0.0-5.0) % Neut % (Auto) 63.3 (50.0-70.0) % Lymph % (Auto) 19.2 L (20.0-40.0) % Jasper % (Auto) 11.9 H (2.0-8.0) % Eos % (Auto) 3.6 H (1.0-3.0) % Baso % (Auto) 1.3 H (0.0-1.0) % Immature Gran # (Auto) 0.05 (0.00-0.50) 10^3/uL Neut # (Auto) 4.52 (2.50-7.00) 10^3/uL Lymph # (Auto) 1.37 (1.00-4.00) 10^3/uL Jasper # (Auto) 0.85 H (0.10-0.80) 10^3/uL Eos # (Auto) 0.26 (0.10-0.30) 10^3/uL Baso # (Auto) 0.09 (0.00-0.10) 10^3/uL Sodium 139 (136-145) mmol/L Potassium 4.4 (3.3-5.3) mmol/L Chloride 102 (98-115) mmol/L Carbon Dioxide 28.1 (21.0-32.0) mmol/L Anion Gap 13.3 (5-15) mmol/L BUN 29 H (6-25) mg/dL Creatinine 1.23 H (0.51-1.17) mg/dL Est Cr Clr Drug Dosing 34.87 mL/min Estimated GFR (MDRD) 44 mL/min Glucose 299 H (75 - 99) mg/dL Calcium 7.9 L (8.7-10.3) mg/dL Total Bilirubin 0.4 (0.2-1.0) mg/dL AST 15 (15-37) U/L ALT 47 (12-78) U/L Alkaline Phosphatase 141 H (46-116) IU/L B-Natriuretic Peptide 874 H (0-100) pg/mL Total Protein 6.0 L (6.4-8.2) g/dL Albumin 2.30 L (3.00-4.80) g/dL Blood Type Gel Antibody Screen Crossmatch Med Orders - Current: Current Medications Acetaminophen/Codeine Phosphate (Tylenol With Codeine No.3 300mg/30mg) 1 tab PO Q4H PRN PRN Reason: Pain Last Admin: 05/29/19 21:24 Dose: 1 tab Albuterol/Ipratropium (Duoneb 3.0-0.5 Mg/3 Ml) 3 ml NEB Q4H PRN PRN Reason: Shortness Of Breath/wheezing Aspirin (Halfprin) 81 mg PO DAILY [facility] Last Admin: 05/31/19 08:40 Dose: 81 mg Carvedilol (Coreg) 6.25 mg PO BID [facility] Last Admin: 05/31/19 08:41 Dose: 6.25 mg Duloxetine HCl (Cymbalta) 90 mg PO DAILY [facility] Last Admin: 05/31/19 08:41 Dose: 90 mg Sodium Chloride (Normal Saline) 50 mls @ 100 mls/hr IV ASDIRECTED [facility] Last Admin: 05/30/19 15:28 Dose: 100 mls/hr Insulin Aspart (Novolog) 0 unit SUBCUT TIDMEALS [facility] Last Admin: 05/31/19 08:10 Dose: 12 unit Levothyroxine Sodium (Levothyroxine) 150 mcg PO ACBREAKFAST [facility] Last Admin: 05/31/19 06:35 Dose: 150 mcg Loperamide HCl (Imodium) 2 mg PO Q4H PRN PRN Reason: Diarrhea Last Admin: 05/29/19 22:56 Dose: 2 mg Non-Formulary Medication (Insulin Glarg,Human.Rec.Analog [Lantus]) 15 units SQ BEDTIME [facility] Last Admin: 05/30/19 20:45 Dose: 15 units Pantoprazole Sodium (Protonix) 40 mg PO ACBREAKFAST [facility] Last Admin: 05/31/19 06:36 Dose: 40 mg Fluticasone/Salmeterol (Advair Diskus 250-50) 1 puff INH BID [facility] Last Admin: 05/31/19 09:18 Dose: 1 puff Sodium Chloride (Saline Flush) 10 ml FLUSH Q8HR PRN PRN Reason: keep vein open Last Admin: 05/31/19 00:07 Dose: 10 ml Discontinued Medications Acetaminophen (Tylenol) 650 mg PO NOW ONE Stop: 05/30/19 12:34 Last Admin: 05/30/19 14:34 Dose: 650 mg Furosemide (Lasix) 20 mg IVPUSH NOW ONE Stop: 05/28/19 21:08 Last Admin: 05/28/19 21:45 Dose: 20 mg Furosemide (Lasix) 40 mg IVPUSH NOW ONE Stop: 05/29/19 09:49 Last Admin: 05/29/19 10:01 Dose: 40 mg Furosemide (Lasix) 20 mg IVPUSH NOW ONE Stop: 05/30/19 12:34 Last Admin: 05/30/19 12:48 Dose: 20 mg Furosemide (Lasix) 40 mg IVPUSH NOW ONE Stop: 05/31/19 08:56 Last Admin: 05/31/19 09:11 Dose: 40 mg Sodium Chloride (Normal Saline) 100 mls @ 200 mls/hr IV ASDIRECTED [facility] Last Admin: 05/28/19 21:50 Dose: 200 mls/hr Insulin Aspart (Novolog) 15 unit SUBCUT QID PRN PRN Reason: Hyperglycemia Insulin Glargine (Lantus Solostar) Confirm Administered Dose 300 units .ROUTE .STK-MED ONE Stop: 05/28/19 23:56 Last Admin: 05/29/19 02:13 Dose: Not Given Insulin Glargine (Lantus Solostar) 15 units SUBCUT BEDTIME ONE Stop: 05/29/19 00:01 Last Admin: 05/29/19 00:05 Dose: 15 units Iopamidol (Isovue-370 (76%)) 100 ml IV ONETIME ONE Stop: 05/28/19 21:25 Last Admin: 05/28/19 21:50 Dose: 100 ml Non-Formulary Medication (Duloxetine [Cymbalta]) 90 mg PO DAILY [facility] Last Admin: 05/29/19 08:32 Dose: 90 mg Non-Formulary Medication (Levothyroxine Sodium [Synthroid]) 150 mcg PO ACBREAKFAST [facility] Last Admin: 05/29/19 09:36 Dose: Not Given - Exam Quality Assessment: Supplemental Oxygen General: Alert, Oriented, Cooperative, No Acute Distress Lungs: Clear to Auscultation, Normal Respiratory Effort Cardiovascular: Regular Rate, Regular Rhythm, Murmurs (2/6 systolic murmur) GI/Abdominal Exam: Normal Bowel Sounds Extremities: Pedal Edema Sepsis Event Note - Evaluation Sepsis Screening Result: No Definite Risk - Focused Exam Vital Signs: Vital Signs Temp Pulse Pulse Resp BP BP Pulse Ox 05/31/19 08:41 86 135/70 05/31/19 06:39 96.8 F 76 18 113/54 L 95 05/30/19 23:00 97.3 F 84 20 115/77 94 L Date Exam was Performed: 05/31/19 Time Exam was Performed: 09:46 - Problem List Review Problem List Initiated/Reviewed/Updated: Yes - My Orders Last 24 Hours: My Active Orders 05/31/19 08:55 PT Evaluation and Treatment [CONS] Routine 06/01/19 05:11 BMP [BASIC METABOLIC PANEL,BMP] [CHEM] AM CBC WITH AUTO DIFF [HEME] AM 06/02/19 05:11 BMP [BASIC METABOLIC PANEL,BMP] [CHEM] AM CBC WITH AUTO DIFF [HEME] AM 06/03/19 05:11 BMP [BASIC METABOLIC PANEL,BMP] [CHEM] AM CBC WITH AUTO DIFF [HEME] AM 06/04/19 05:11 BMP [BASIC METABOLIC PANEL,BMP] [CHEM] AM CBC WITH AUTO DIFF [HEME] AM 06/05/19 05:11 BMP [BASIC METABOLIC PANEL,BMP] [CHEM] AM CBC WITH AUTO DIFF [HEME] AM - Assessment Assessment:: Ischemic cardiomyopathy with HFrEF, 40-45%, currently with exacerbation Generalized weakness Anemia Pedal edema secondary to CHF Hx bioprosthetic aortic valve replacement 2018 Acute on chronic renal failure, baseline creatinine 1.8, currently 1.23 so improved. Diabetes mellitus, A1C 7.6. HTN COOKIE on CPAP Hypothyroidism - Plan Plan:: Ischemic cardiomyopathy with HFrEF, 40-45%, currently with exacerbation. Will give additional lasix 40 mg IV today x 1 and daily weights. Generalized weakness. PT eval and treat today. Anemia. S/P 1 units PRBC on 05/30 Pedal edema secondary to CHF, lasix as noted above. Hx bioprosthetic aortic valve replacement 2018. Acute on chronic renal failure, baseline creatinine 1.8, currently 1.23 so improved. Daily BMP. Diabetes mellitus, A1C 7.6. Continue current insulin regimen. HTN. Controlled. COOKIE on CPAP. CPAP at night. Hypothyroidism Continue oupatient meds.
[2019-05-31] MEDS: Acetaminophen/Codeine 300-30 MG Tab PO PRN (14:27)
[2019-05-31] MEDS: INSULIN GLARG HUMAN REC ANALOG 15 UNIT SQ SCH (21:56)
[2019-06-01] MEDS: Acetaminophen/Codeine 300-30 MG Tab PO PRN (01:02)
[2019-06-01 07:51] LABS: ANION GAP 11.5 mmol/L (5-15)
[2019-06-01] MEDS: Levothyroxine 75 MCG Tab PO SCH (08:02)
[2019-06-01] MEDS: Insulin Aspart 100 Units/ML 3 ML Pen SUBCUT SCH ×2 (08:02→12:16)
[2019-06-01] MEDS: Pantoprazole 40 MG Tab.CR PO SCH (08:02)
[2019-06-01] MEDS: DULoxetine 30 MG Cap PO SCH (08:53)
[2019-06-01] MEDS: Aspirin 81 MG Tab.EC PO SCH (08:53)
[2019-06-01] MEDS: Carvedilol 6.25 MG Tab PO SCH (08:53)
[2019-06-01] MEDS ORDERED: Furosemide 40 MG Tab PO SCH (09:00)
[2019-06-01 09:07] VITALS: PULSE 88
[2019-06-01] MEDS: Fluticasone/Salmeterol 250-50 MCG Inhalation Powder 14/Diskus INH SCH (09:12)
[2019-06-01] MEDS ORDERED: Cyclobenzaprine 10 MG Tab PO PRN (10:49)
[2019-06-01] MEDS ORDERED: Betamethasone Dipropionate/Clotrimazole 0.05-1% Crm 15 GM Tube TOP PRN (10:49)
[2019-06-01] MEDS ORDERED: Albuterol 8 GM Inhaler INH PRN (10:49)
[2019-06-01] MEDS ORDERED: Cyanocobalamin (Vitamin B12) 500 MCG Tab PO SCH (11:00)
[2019-06-01] MEDS ORDERED: Cholecalciferol (Vitamin D3) 25 MCG Tab PO SCH (11:00)
[2019-06-01] MEDS ORDERED: Ascorbic Acid 500 MG Tab PO SCH (11:00)
[2019-06-01] MEDS ORDERED: Iron Polysaccharides Complex 150 MG Cap PO SCH (11:00)
[2019-06-01] MEDS ORDERED: Acetaminophen/Codeine 300-30 MG Tab PO SCH (11:00)
[2019-06-01] MEDS ORDERED: Bumetanide 1 MG Tab PO SCH (11:00)
[2019-06-01] MEDS ORDERED: diphenhydrAMINE 25 MG Cap PO SCH (11:00)
[2019-06-01] MEDS ORDERED: Metolazone 2.5 MG Tab PO SCH (11:00)
[2019-06-01] MEDS ORDERED: Phosphorus #1 250 MG Tab PO SCH (11:00)
[2019-06-01] MEDS ORDERED: Losartan 25 MG Tab PO SCH (11:00)
[2019-06-01] MEDS ORDERED: Trospium 20 MG Tab PO SCH (11:45)
[2019-06-01] MEDS ORDERED: Calcium Carbonate 500 MG Tab.Chew PO SCH (12:00)
--- NOTE | 2019-06-01 12:03 | PCM.DCSUM1 ---
Discharge Summary - Hospital Course Free Text/Narrative:: Admission Date: 05/28/2019 Discharge Date: 06/01/2019 Disposition: Transfer within hospital to [facility] Victorina was admitted on 05/28/2019 with SOB, CHF exacerbation and hypoxia. Of note , she has a very complicated medial history. She was actually seen in the ER on 05/18/2019 for decreased level of consciousness. She was afebrile but hypotensive and saturating at 80% on room air which corrected with 4L nasal cannula. She was anemic with an elevated WBC at 35,000 No obvious source of bleeding, hemoglobin was 5.5. CXR showed bilateral infiltrates and she was given Rocephin. Potassium was 6.0, INR was >18. She was intubated for and shortly after intubation coded and required CPR x 2 minutes and epinephrine x 1 dose with ROSC. Her admitting diagnoses to [facility] at that time were: Pulmonary infiltrates. Brief cardiac arrest Acute hypercapnic and hypoxemic respiratory failure secondary to ARDS from pneumonia. 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 Echo was stable. EF 40-45%. Acute hypercapnic/hypoxic respiratory failure secondary to pneumonia ARDS. Completed 7 days of Zosyn and docycycline with negative cultures. Septic shock, requiring pressor support. Lactic acidosis Shock liver Normocytic anemia s/p 3 units of PRBC's Supratherapeutic INR, warfarin discontinued due to completion of therapy. Acute CKD stage 3 at baseline. Weakness She was in the hospital at [facility] from 05/18/2019 - 05/26/2019 and was discharged with home health. She states she was not ready to go home, that she had a temp of 99.2 "and my temp is 96.6 so I had a fever" and also that she needed to go home with oxygen but that was never evaluated or arranged for her. When she got home she was very tired and was using her CPAP most of the day due to difficulty breathing. She eventually ended up in the ER on 05/28/2019 due to low O2 sats (84% at home on RA) and SOB. She was noted to have CHF exacerbation. She was given lasix 20 mg IV initially then the following day 40 mg IV with nice diuresis. She is breathing more easily. She received 1 unit PRBC on 05/30 due to hemoglobin drop from 7.6 to 7.1 without obvious source of bleeding. She is no long on warfarin having completed her 3 month course after her AVR. Today she is doing much better. She reports her breathing is much easier and less painful. She had some chest pain with exertion yesterday but this is felt to be more due to deconditioning rather than having an ischemic cardiac event. EKG and troponin were not obtained as it was fleeting and resolved completely with rest. She is still requiring oxygen and is quite deconditioned and PT as well as myself feel she is appropriate to transfer in hospital to [facility] for ongoing PT. Admission Diagnoses from 05/28/2019: Ischemic cardiomyopathy with HFrEF, 40-45%, currently with exacerbation Generalized weakness Anemia Pedal edema secondary to CHF Hx bioprosthetic aortic valve replacement 2018 Acute on chronic renal failure, baseline creatinine 1.8, currently 1.23 so improved. Diabetes mellitus, A1C 7.6. HTN COOKIE on CPAP Hypothyroidism Discharge Diagnoses from 06/01/2019: Ischemic cardiomyopathy with HFrEF, 40-45%, improving. Resuming home meds with daily weights. Generalized weakness. PT eval and treat. Anemia, stable, s/p 1 unit PRBC on 05/30/2019. Twice weekly CBC, sooner if clinically indicated. Pedal edema secondary to CHF, continue Bumex, Zaroxolyn and compression stockings. Hx bioprosthetic aortic valve replacement 2018, warfarin no longer needed. Acute on chronic renal failure, baseline creatinine 1.8, currently 1.19, improved. Diabetes mellitus, A1C 7.6. Sliding scale insulin for BG's, may need to resume lantus. HTN, continue CoReg and Losartan COOKIE on CPAP Hypothyroidism, continue levothyroxine. No new medications. Code Status: Full Code Diet: Diabetic, Heart Healthy Diagnosis: Stroke: No Modified Julisa Scale: Slight Disable;Unable to Carry Out Prev Act.Able to Look After Affairs Modified [place] Scale Score: 2 - Discharge Data Discharge Date: 06/01/19 Discharge Disposition: DC/Tfer W/I Hosp To Swing [facility] Condition: Fair - Referral to Home Health Primary Care Physician: Brenda Gomez MD - Patient Summary/Data Consults: Consultations 05/28/19 22:23 Respiratory Care Assess and Treatment [CONS] Routine 05/31/19 08:55 PT Evaluation and Treatment [CONS] Routine - Patient Instructions Diet: Heart Healthy Diet, Diabetic Diet - Discharge Plan *PRESCRIPTION DRUG MONITORING PROGRAM REVIEWED*: Not Applicable *COPY OF PRESCRIPTION DRUG MONITORING REPORT IN PATIENT JESS: Not Applicable Home Medications: Home Meds DULoxetine [Cymbalta] 90 mg PO BEDTIME 09/29/16 [History] Fesoterodine Fumarate [Toviaz] 8 mg PO DAILY 09/29/16 [History] Fluticasone/Salmeterol [Advair 250-50 Diskus] 1 puff INH BID PRN 09/29/16 [ History] Insulin Aspart [Novolog Flexpen] 0 units SQ QID PRN 09/30/16 [History] Acetaminophen with Codeine [Acetaminophen-Cod #3] 1 tab PO BID 01/11/19 [History ] Aspirin [Ecotrin EC] 81 mg PO DAILY 01/11/19 [History] Levothyroxine Sodium [Synthroid] 150 mcg PO DAILY 01/11/19 [History] Pantoprazole Sodium [Protonix] 40 mg PO DAILY@1700 01/11/19 [History] Phosphorus #1 [Virt-Phos 250 Neutral Tablet] 250 mg PO BID 01/11/19 [History] Potassium Chloride 20 meq PO BIDMEALS 01/11/19 [History] Rosuvastatin Calcium 20 mg PO BEDTIME 01/11/19 [History] carvediloL [Carvedilol] 6.25 mg PO BIDMEALS 01/11/19 [History] Albuterol Sulfate [Proair Hfa] 1 - 2 puff INH Q4H PRN 05/31/19 [History] Ascorbic Acid 500 mg PO DAILY 05/31/19 [History] Bumetanide [Bumex] 2 mg PO BID 05/31/19 [History] Cholecalciferol (Vitamin D3) [Vitamin D3] 25 mcg PO DAILY 05/31/19 [History] Cinnamon Bark [Cinnamon] 500 mg PO DAILY 05/31/19 [History] Clotrimazole/Betamethasone Dip [Lotrisone Cream] 1 applic TP BID PRN 05/31/19 [ History] Cyanocobalamin (Vitamin B-12) [Vitamin B-12] 1,000 mcg PO DAILY 05/31/19 [ History] Cyclobenzaprine [Flexeril] 10 mg PO BID PRN 05/31/19 [History] Docusate Sodium [Colace] 100 mg PO BID 05/31/19 [History] Iron Polysaccharide Complex [Polysaccharide Iron] 150 mg PO DAILY 05/31/19 [ History] Losartan [Cozaar] 25 mg PO DAILY 05/31/19 [History] Magnesium Oxide 400 mg PO BIDMEALS 05/31/19 [History] Sennosides/Docusate Sodium [Senna-Docusate Sodium Tablet] 1 each PO DAILY [History] diphenhydrAMINE [Benadryl] 25 mg PO DAILY 05/31/19 [History] Calcium Carbonate [Calcium] 1,200 mg PO DAILY 06/01/19 [History] Insulin Glargine,Hum.Rec.Anlog [Basaglar Kwikpen U-100] 60 units SUBCUT BEDTIME 06/01/19 [History] Non-Formulary Medication [NF Drug] 2 tab PO DAILY 06/01/19 [History] metOLazone [Metolazone] 2.5 mg PO Q72H 06/01/19 [History] Referrals: Brenda Gomez MD [Primary Care Provider] - - Discharge Summary/Plan Comment DC Time >30 min.: Yes (Total time spent on discharge was 50 minutes.) - Patient Data Vitals - Most Recent: Last Vital Signs Temp 97.1 F 06/01/19 06:28 Pulse 88 06/01/19 09:12 Resp 20 06/01/19 06:28 BP 94/53 L 06/01/19 08:53 Pulse Ox 95 06/01/19 09:40 Weight - Most Recent: 306 lb 5 oz I&O - Last 24 hours: Intake & Output 05/31/19 06/01/19 06/01/19 22:59 06:59 14:59 Intake Total 520 0 Output Total 200 1200 Balance 320 -1200 Lab Results - Last 24 hrs: Laboratory Results - last 24 hr 06/01/19 06/01/19 Range/Units 07:15 07:15 WBC 6.88 (5.00-10.00) 10^3/uL RBC 2.98 L (3.80-5.50) 10^6/uL Hgb 7.8 L (12.0-16.0) g/dL Hct 25.8 L (37.0-47.0) % MCV 86.6 (82.0-92.0) fL MCH 26.2 L (27.0-31.0) pg MCHC 30.2 L (32.0-36.0) g/dL RDW 18.4 H (11.5-14.5) % Plt Count 237 (150-400) 10^3/uL MPV 9.5 (7.4-10.4) fL Immature Gran % (Auto) 0.4 (0.0-5.0) % Neut % (Auto) 65.3 (50.0-70.0) % Lymph % (Auto) 17.2 L (20.0-40.0) % [place] % (Auto) 11.3 H (2.0-8.0) % Eos % (Auto) 4.1 H (1.0-3.0) % Baso % (Auto) 1.7 H (0.0-1.0) % Immature Gran # (Auto) 0.03 (0.00-0.50) 10^3/uL Neut # (Auto) 4.49 (2.50-7.00) 10^3/uL Lymph # (Auto) 1.18 (1.00-4.00) 10^3/uL [place] # (Auto) 0.78 (0.10-0.80) 10^3/uL Eos # (Auto) 0.28 (0.10-0.30) 10^3/uL Baso # (Auto) 0.12 H (0.00-0.10) 10^3/uL Sodium 139 (136-145) mmol/L Potassium 4.3 (3.3-5.3) mmol/L Chloride 102 (98-115) mmol/L Carbon Dioxide 29.8 (21.0-32.0) mmol/L Anion Gap 11.5 (5-15) mmol/L BUN 29 H (6-25) mg/dL Creatinine 1.19 H (0.51-1.17) mg/dL Est Cr Clr Drug Dosing 36.04 mL/min Estimated GFR (MDRD) 46 mL/min Glucose 245 H (75 - 99) mg/dL Calcium 8.1 L (8.7-10.3) mg/dL Med Orders - Current: Current Medications Acetaminophen/Codeine Phosphate (Tylenol With Codeine No.3 300mg/30mg) 1 tab PO BID [facility] Albuterol (Ventolin Hfa) 0 gm INH Q4H PRN PRN Reason: shortness of breath Albuterol/Ipratropium (Duoneb 3.0-0.5 Mg/3 Ml) 3 ml NEB Q4H PRN PRN Reason: Shortness Of Breath/wheezing Ascorbic Acid (Vitamin C) 500 mg PO DAILY [facility] Aspirin (Halfprin) 81 mg PO DAILY [facility] Last Admin: 06/01/19 08:53 Dose: 81 mg Betamethasone/Clotrimazole (Lotrisone) 0 gm TOP BID PRN PRN Reason: Other Bumetanide (Bumex) 2 mg PO BID [facility] Calcium Carbonate/Glycine (Tums) 1,250 mg PO DAILY [facility] Carvedilol (Coreg) 6.25 mg PO BID [facility] Last Admin: 06/01/19 08:53 Dose: Not Given Cholecalciferol (Vitamin D3) 25 mcg PO DAILY [facility] Cyanocobalamin (Vitamin B12) 1,000 mcg PO DAILY [facility] Cyclobenzaprine HCl (Flexeril) 10 mg PO BID PRN PRN Reason: Muscle Spasm Diphenhydramine HCl (Benadryl) 25 mg PO DAILY [facility] Duloxetine HCl (Cymbalta) 90 mg PO DAILY [facility] Last Admin: 06/01/19 08:53 Dose: 90 mg Insulin Aspart (Novolog) 0 unit SUBCUT TIDMEALS [facility] Last Admin: 06/01/19 08:02 Dose: 10 unit Levothyroxine Sodium (Levothyroxine) 150 mcg PO ACBREAKFAST [facility] Last Admin: 06/01/19 08:02 Dose: 150 mcg Loperamide HCl (Imodium) 2 mg PO Q4H PRN PRN Reason: Diarrhea Last Admin: 05/29/19 22:56 Dose: 2 mg Losartan Potassium (Cozaar) 25 mg PO DAILY [facility] Magnesium Oxide (Magnesium Oxide) 500 mg PO BIDMEALS KATHY Metolazone (Zaroxolyn) 2.5 mg PO Q72H [facility] Non-Formulary Medication (Insulin Glarg,Human.Rec.Analog [Lantus]) 15 units SQ BEDTIME KATHY Last Admin: 05/31/19 21:56 Dose: 15 units Pantoprazole Sodium (Protonix) 40 mg PO ACBREAKFAST [facility] Last Admin: 06/01/19 08:02 Dose: 40 mg Polysaccharide Iron Complex (Ferrex 150) 150 mg PO DAILY [facility] Potassium Chloride (Klor-Con M20) 20 meq PO BIDMEALS [facility] Rosuvastatin Calcium (Crestor) 20 mg PO BEDTIME KATHY Fluticasone/Salmeterol (Advair Diskus 250-50) 1 puff INH BID [facility]ATHY Last Admin: 06/01/19 09:12 Dose: 1 puff Sodium Chloride (Saline Flush) 10 ml FLUSH Q8HR PRN PRN Reason: keep vein open Last Admin: 05/31/19 00:07 Dose: 10 ml Sodium Phosphate (Neutra-Phos) 250 mg PO BID KATHY Trospium (Sanctura) 20 mg PO BID [facility] Discontinued Medications Acetaminophen (Tylenol) 650 mg PO NOW ONE Stop: 05/30/19 12:34 Last Admin: 05/30/19 14:34 Dose: 650 mg Acetaminophen/Codeine Phosphate (Tylenol With Codeine No.3 300mg/30mg) 1 tab PO Q4H PRN PRN Reason: Pain Last Admin: 06/01/19 01:02 Dose: 1 tab Furosemide (Lasix) 20 mg IVPUSH NOW ONE Stop: 05/28/19 21:08 Last Admin: 05/28/19 21:45 Dose: 20 mg Furosemide (Lasix) 40 mg IVPUSH NOW ONE Stop: 05/29/19 09:49 Last Admin: 05/29/19 10:01 Dose: 40 mg Furosemide (Lasix) 20 mg IVPUSH NOW ONE Stop: 05/30/19 12:34 Last Admin: 05/30/19 12:48 Dose: 20 mg Furosemide (Lasix) 40 mg IVPUSH NOW ONE Stop: 05/31/19 08:56 Last Admin: 05/31/19 09:11 Dose: 40 mg Furosemide (Lasix) 40 mg PO DAILY [facility] Last Admin: 06/01/19 08:53 Dose: 40 mg Sodium Chloride (Normal Saline) 100 mls @ 200 mls/hr IV ASDIRECTED [facility] Last Admin: 05/28/19 21:50 Dose: 200 mls/hr Sodium Chloride (Normal Saline) 50 mls @ 100 mls/hr IV ASDIRECTED [facility] Last Admin: 05/30/19 15:28 Dose: 100 mls/hr Insulin Aspart (Novolog) 15 unit SUBCUT QID PRN PRN Reason: Hyperglycemia Insulin Glargine (Lantus Solostar) Confirm Administered Dose 300 units .ROUTE .STK-MED ONE Stop: 05/28/19 23:56 Last Admin: 05/29/19 02:13 Dose: Not Given Insulin Glargine (Lantus Solostar) 15 units SUBCUT BEDTIME ONE Stop: 05/29/19 00:01 Last Admin: 05/29/19 00:05 Dose: 15 units Iopamidol (Isovue-370 (76%)) 100 ml IV ONETIME ONE Stop: 05/28/19 21:25 Last Admin: 05/28/19 21:50 Dose: 100 ml Non-Formulary Medication (Duloxetine [Cymbalta]) 90 mg PO DAILY [facility] Last Admin: 05/29/19 08:32 Dose: 90 mg Non-Formulary Medication (Levothyroxine Sodium [Synthroid]) 150 mcg PO ACBREAKFAST [facility] Last Admin: 05/29/19 09:36 Dose: Not Given - Exam Quality Assessment: Reports: Supplemental Oxygen General: Reports: Alert, Oriented, Cooperative, No Acute Distress Lungs: Reports: Clear to Auscultation, Normal Respiratory Effort Cardiovascular: Reports: Regular Rate, Regular Rhythm, Murmurs (1/6 systolic murmur) GI/Abdominal Exam: Normal Bowel Sounds, Soft Extremities: Pedal Edema
[2019-06-01 12:29] VITALS: BP 132/70
[2019-06-01] MEDS ORDERED: Magnesium Oxide 500 MG Tab PO SCH (18:00)
[2019-06-01] MEDS ORDERED: Potassium Chloride 20 MEQ Tab.ER PO SCH (18:00)
[2019-06-01] MEDS ORDERED: Rosuvastatin 10 MG Tab PO SCH (21:00)
== END 2019-06-01 12:06 | disposition swing bed (61) | DRG 291 ==
LOC: KA.ED 20:00 → KA.MS 22:35 → UNDODISIN 06-01 12:10
PROVIDERS: ADMIT Physician Assistant Surgical; ATTEND Internal Medicine
DX: I11.0 Hypertensive heart disease with heart failure (principal); I50.9 Heart failure, unspecified; G47.30 Sleep apnea, unspecified; H54.7 Unspecified visual loss; I13.0 Hypertensive heart and chronic kidney disease with heart failure and stage 1 through stage 4 chronic kidney disease, or unspecified chronic kidney disease; J45.909 Unspecified asthma, uncomplicated; I50.23 Acute on chronic systolic (congestive) heart failure; N17.9 Acute kidney failure, unspecified; Z68.43 Body mass index [BMI] 50.0-59.9, adult; M79.7 Fibromyalgia; N18.9 Chronic kidney disease, unspecified; G43.909 Migraine, unspecified, not intractable, without status migrainosus; E11.40 Type 2 diabetes mellitus with diabetic neuropathy, unspecified; E11.22 Type 2 diabetes mellitus with diabetic chronic kidney disease; G47.33 Obstructive sleep apnea (adult) (pediatric); E03.9 Hypothyroidism, unspecified; D64.9 Anemia, unspecified; Z95.1 Presence of aortocoronary bypass graft; Z88.8 Allergy status to other drugs, medicaments and biological substances; Z79.82 Long term (current) use of aspirin; Z95.5 Presence of coronary angioplasty implant and graft; E78.00 Pure hypercholesterolemia, unspecified; K59.09 Other constipation; Z86.010 Personal history of colon polyps; K21.9 Gastro-esophageal reflux disease without esophagitis; M81.0 Age-related osteoporosis without current pathological fracture; M19.90 Unspecified osteoarthritis, unspecified site; E11.42 Type 2 diabetes mellitus with diabetic polyneuropathy; F32.9 Major depressive disorder, single episode, unspecified; E66.9 Obesity, unspecified; Z87.01 Personal history of pneumonia (recurrent); Z79.4 Long term (current) use of insulin; Z79.890 Hormone replacement therapy; Z79.899 Other long term (current) drug therapy; Z88.2 Allergy status to sulfonamides; Z88.6 Allergy status to analgesic agent; Z98.49 Cataract extraction status, unspecified eye
CPT/HCPCS: 36415; 36430; 71045; 71260; 80048; 80053; 83036; 83735; 83880; 84484; 85025; 85379; 85610; 85730; 86850; 86900; 86901; 86920; 86922; 93005; 94640; 97162-GP; A9270-GY; J1815-GY; J1940; J7050; P9016; Q9967

== ENCOUNTER 2019-06-01 09:20 | Inpatient (IN) | payer MEDICARE, OTHER, MEDICAID ==
[2019-06-01] MEDS ORDERED: Sodium Chloride 0.9% 10 ML Syringe FLUSH PRN ×2 (12:10)
[2019-06-01] MEDS ORDERED: Loperamide 2 MG Cap PO PRN (12:10)
[2019-06-01] MEDS ORDERED: Betamethasone Dipropionate/Clotrimazole 0.05-1% Crm 15 GM Tube TOP PRN (12:10)
[2019-06-01] MEDS ORDERED: Albuterol/Ipratropium 3.0-0.5 MG/3 ML Neb Soln NEB PRN (12:10)
[2019-06-01] MEDS ORDERED: Albuterol 8 GM Inhaler INH PRN (12:10)
[2019-06-01] MEDS: Metolazone 2.5 MG Tab PO SCH (13:30)
[2019-06-01] MEDS: Insulin Aspart 100 Units/ML 3 ML Pen SUBCUT SCH (18:10)
[2019-06-01] MEDS: Rosuvastatin 10 MG Tab PO SCH (20:12)
[2019-06-01] MEDS: Phosphorus #1 250 MG Tab PO SCH (20:13)
[2019-06-01] MEDS: Acetaminophen/Codeine 300-30 MG Tab PO SCH (20:13)
[2019-06-01] MEDS: Potassium Chloride 20 MEQ Tab.ER PO SCH (20:13)
[2019-06-01] MEDS: Magnesium Oxide 500 MG Tab PO SCH (20:15)
[2019-06-01] MEDS: Bumetanide 1 MG Tab PO SCH ×2 (20:15→20:23)
[2019-06-01] MEDS: Carvedilol 6.25 MG Tab PO SCH (20:16)
[2019-06-01] MEDS: Trospium 20 MG Tab PO SCH (20:16)
[2019-06-01] MEDS: Fluticasone/Salmeterol 250-50 MCG Inhalation Powder 14/Diskus INH SCH (20:20)
[2019-06-01] MEDS: Insulin Glargine,Human Rec. Analog 100 Units/ML 3 ML Pen SUBCUT SCH (21:37)
[2019-06-02] MEDS: Cyclobenzaprine 10 MG Tab PO PRN (02:38)
[2019-06-02] MEDS: Insulin Aspart 100 Units/ML 3 ML Pen SUBCUT SCH ×3 (07:42→17:52)
[2019-06-02] MEDS: Pantoprazole 40 MG Tab.CR PO SCH (07:44)
[2019-06-02] MEDS: Potassium Chloride 20 MEQ Tab.ER PO SCH ×2 (07:44→17:52)
[2019-06-02] MEDS: Levothyroxine 75 MCG Tab PO SCH (07:44)
[2019-06-02] MEDS: Magnesium Oxide 500 MG Tab PO SCH ×2 (07:44→17:52)
[2019-06-02 07:52] LABS: ANION GAP 8.8 mmol/L (5-15)
[2019-06-02] MEDS: Fluticasone/Salmeterol 250-50 MCG Inhalation Powder 14/Diskus INH SCH ×2 (07:53→21:11)
[2019-06-02] MEDS ORDERED: diphenhydrAMINE 25 MG Cap PO SCH (09:00)
[2019-06-02] MEDS: Calcium Carbonate 500 MG Tab.Chew PO SCH (09:09)
[2019-06-02] MEDS: Ascorbic Acid 500 MG Tab PO SCH (09:11)
[2019-06-02] MEDS: Aspirin 81 MG Tab.EC PO SCH (09:11)
[2019-06-02] MEDS: Iron Polysaccharides Complex 150 MG Cap PO SCH (09:11)
[2019-06-02] MEDS: DULoxetine 30 MG Cap PO SCH (09:12)
[2019-06-02] MEDS: Trospium 20 MG Tab PO SCH ×2 (09:13→21:11)
[2019-06-02] MEDS: Carvedilol 6.25 MG Tab PO SCH ×2 (09:13→21:16)
[2019-06-02] MEDS: Bumetanide 1 MG Tab PO SCH ×2 (09:14→18:11)
[2019-06-02] MEDS: Phosphorus #1 250 MG Tab PO SCH ×2 (09:14→21:14)
[2019-06-02] MEDS: Cyanocobalamin (Vitamin B12) 500 MCG Tab PO SCH (09:14)
[2019-06-02] MEDS: Cholecalciferol (Vitamin D3) 25 MCG Tab PO SCH (09:15)
[2019-06-02] MEDS: Acetaminophen/Codeine 300-30 MG Tab PO SCH ×2 (09:15→21:12)
[2019-06-02] MEDS: Losartan 25 MG Tab PO SCH (09:16)
[2019-06-02] MEDS ORDERED: Acetaminophen/Codeine 300-30 MG Tab PO PRN (18:46)
[2019-06-02] MEDS ORDERED: diphenhydrAMINE 25 MG Cap PO ONE (21:00)
[2019-06-02] MEDS: Rosuvastatin 10 MG Tab PO SCH (21:12)
[2019-06-02] MEDS: Insulin Glargine,Human Rec. Analog 100 Units/ML 3 ML Pen SUBCUT SCH (21:17)
[2019-06-03 07:51] LABS: ANION GAP 11.8 mmol/L (5-15)
[2019-06-03] MEDS: Levothyroxine 75 MCG Tab PO SCH (07:52)
[2019-06-03] MEDS: Pantoprazole 40 MG Tab.CR PO SCH (07:52)
[2019-06-03] MEDS: Insulin Aspart 100 Units/ML 3 ML Pen SUBCUT SCH ×3 (08:02→17:53)
[2019-06-03] MEDS: Fluticasone/Salmeterol 250-50 MCG Inhalation Powder 14/Diskus INH SCH ×2 (08:47→22:31)
[2019-06-03] MEDS: Carvedilol 6.25 MG Tab PO SCH ×2 (09:25→22:27)
[2019-06-03] MEDS: Calcium Carbonate 500 MG Tab.Chew PO SCH (09:25)
[2019-06-03] MEDS: Losartan 25 MG Tab PO SCH (09:25)
[2019-06-03] MEDS: Aspirin 81 MG Tab.EC PO SCH (09:26)
[2019-06-03] MEDS: Ascorbic Acid 500 MG Tab PO SCH (09:26)
[2019-06-03] MEDS: Phosphorus #1 250 MG Tab PO SCH ×2 (09:26→22:27)
[2019-06-03] MEDS: Cholecalciferol (Vitamin D3) 25 MCG Tab PO SCH (09:26)
[2019-06-03] MEDS: Iron Polysaccharides Complex 150 MG Cap PO SCH (09:26)
[2019-06-03] MEDS: Acetaminophen/Codeine 300-30 MG Tab PO SCH ×2 (09:26→22:28)
[2019-06-03] MEDS: Bumetanide 1 MG Tab PO SCH ×2 (09:26→17:06)
[2019-06-03] MEDS: Magnesium Oxide 500 MG Tab PO SCH ×2 (09:26→17:52)
[2019-06-03] MEDS: DULoxetine 30 MG Cap PO SCH (09:26)
[2019-06-03] MEDS: Cyanocobalamin (Vitamin B12) 500 MCG Tab PO SCH (09:27)
[2019-06-03] MEDS: Potassium Chloride 20 MEQ Tab.ER PO SCH ×2 (09:27→17:52)
[2019-06-03] MEDS: Trospium 20 MG Tab PO SCH ×2 (09:31→22:28)
[2019-06-03] MEDS: diphenhydrAMINE 25 MG Cap PO SCH (22:27)
[2019-06-03] MEDS: Rosuvastatin 10 MG Tab PO SCH (22:28)
[2019-06-03] MEDS: Insulin Glargine,Human Rec. Analog 100 Units/ML 3 ML Pen SUBCUT SCH (22:33)
[2019-06-04] MEDS: Cyclobenzaprine 10 MG Tab PO PRN (03:23)
[2019-06-04] MEDS: Levothyroxine 75 MCG Tab PO SCH (08:00)
[2019-06-04] MEDS: Pantoprazole 40 MG Tab.CR PO SCH (08:00)
[2019-06-04] MEDS: Magnesium Oxide 500 MG Tab PO SCH ×2 (08:00→18:03)
[2019-06-04] MEDS: Potassium Chloride 20 MEQ Tab.ER PO SCH ×2 (08:00→18:03)
[2019-06-04] MEDS: Insulin Aspart 100 Units/ML 3 ML Pen SUBCUT SCH ×3 (08:03→18:03)
[2019-06-04] MEDS: Acetaminophen/Codeine 300-30 MG Tab PO SCH ×2 (08:53→21:21)
[2019-06-04] MEDS: Aspirin 81 MG Tab.EC PO SCH (08:53)
[2019-06-04] MEDS: Ascorbic Acid 500 MG Tab PO SCH (08:53)
[2019-06-04] MEDS: Cholecalciferol (Vitamin D3) 25 MCG Tab PO SCH (08:53)
[2019-06-04] MEDS: Cyanocobalamin (Vitamin B12) 500 MCG Tab PO SCH (08:53)
[2019-06-04] MEDS: Iron Polysaccharides Complex 150 MG Cap PO SCH (08:53)
[2019-06-04] MEDS: Losartan 25 MG Tab PO SCH (08:53)
[2019-06-04] MEDS: Carvedilol 6.25 MG Tab PO SCH ×2 (08:53→21:17)
[2019-06-04] MEDS: Calcium Carbonate 500 MG Tab.Chew PO SCH (08:54)
[2019-06-04] MEDS: DULoxetine 30 MG Cap PO SCH (08:54)
[2019-06-04] MEDS: Phosphorus #1 250 MG Tab PO SCH ×2 (08:54→21:20)
[2019-06-04] MEDS: Trospium 20 MG Tab PO SCH ×2 (08:54→21:22)
[2019-06-04] MEDS: Bumetanide 1 MG Tab PO SCH ×2 (08:54→12:48)
[2019-06-04] MEDS: Fluticasone/Salmeterol 250-50 MCG Inhalation Powder 14/Diskus INH SCH ×2 (09:00→21:28)
[2019-06-04] MEDS: Metolazone 2.5 MG Tab PO SCH (12:48)
--- NOTE | 2019-06-04 12:52 | PCM.PN ---
- General Info Date of Service: 06/04/19 Admission Dx/Problem (Free Text): CHF exacerbation, generalized weakness. - Review of Systems Systems Review Comment:: [facility]. She was admitted to [facility] on 2019 for strengthening. She was initially admitted inpatient for CHF exacerbation. She has a hx of HFrEF, EF 40-45%. She had a max weight of 306 and is now down to 292. She feels well. Her LE edema is improving. She is no longer requiring oxygen. She uses CPAP at night for her COOKIE. She has a few questions for me today. 1. She would like her bumetanide to be at 6AM and 10AM to reduce her urinary frequency overnight. This is how she takes it at home. 2. She would like to switch from TUMS for calcium supplementation to oral calcium supplement. 3. She is wondering if she can get her mammogram while she is in the hospital. 4. She noticed a small lump on her right breast she would like evaluated. - Patient Data Vitals - Most Recent: Last Vital Signs Temp 98.1 F 06/04/19 06:40 Pulse 92 06/04/19 09:00 Resp 18 06/04/19 06:40 BP 108/56 L 06/04/19 08:53 Pulse Ox 92 L 06/04/19 09:00 Weight - Most Recent: 292 lb 1 oz I&O - Last 24 Hours: Intake & Output 06/03/19 06/04/19 06/04/19 22:59 06:59 14:59 Intake Total 800 300 Output Total 2600 2200 Balance -1800 -1900 Lab Results Last 24 Hours: Laboratory Results - last 24 hr 06/04/19 06/04/19 Range/Units 07:28 07:28 WBC 5.95 (5.00-10.00) 10^3/uL RBC 3.13 L (3.80-5.50) 10^6/uL Hgb 8.2 L (12.0-16.0) g/dL Hct 26.6 L (37.0-47.0) % MCV 85.0 (82.0-92.0) fL MCH 26.2 L (27.0-31.0) pg MCHC 30.8 L (32.0-36.0) g/dL RDW 18.4 H (11.5-14.5) % Plt Count 241 (150-400) 10^3/uL MPV 10.7 H (7.4-10.4) fL Immature Gran % (Auto) 0.2 (0.0-5.0) % Neut % (Auto) 55.5 (50.0-70.0) % Lymph % (Auto) 26.7 (20.0-40.0) % [place] % (Auto) 12.9 H (2.0-8.0) % Eos % (Auto) 3.0 (1.0-3.0) % Baso % (Auto) 1.7 H (0.0-1.0) % Immature Gran # (Auto) 0.01 (0.00-0.50) 10^3/uL Neut # (Auto) 3.30 (2.50-7.00) 10^3/uL Lymph # (Auto) 1.59 (1.00-4.00) 10^3/uL [place] # (Auto) 0.77 (0.10-0.80) 10^3/uL Eos # (Auto) 0.18 (0.10-0.30) 10^3/uL Baso # (Auto) 0.10 (0.00-0.10) 10^3/uL Sodium 136 (136-145) mmol/L Potassium 4.1 (3.3-5.3) mmol/L Chloride 97 L (98-115) mmol/L Carbon Dioxide 33.1 H (21.0-32.0) mmol/L Anion Gap 10.0 (5-15) mmol/L BUN 49 H (6-25) mg/dL Creatinine 1.57 H (0.51-1.17) mg/dL Est Cr Clr Drug Dosing 27.32 mL/min Estimated GFR (MDRD) 33 mL/min Glucose 263 H (75 - 99) mg/dL Calcium 7.9 L (8.7-10.3) mg/dL Med Orders - Current: Current Medications Acetaminophen/Codeine Phosphate (Tylenol With Codeine No.3 300mg/30mg) 1 tab PO BID [facility]ATHY Last Admin: 06/04/19 08:53 Dose: 1 tab Acetaminophen/Codeine Phosphate (Tylenol With Codeine No.3 300mg/30mg) 1 tab PO DAILY PRN PRN Reason: Pain Albuterol (Ventolin Hfa) 0 gm INH Q4H PRN PRN Reason: shortness of breath Albuterol/Ipratropium (Duoneb 3.0-0.5 Mg/3 Ml) 3 ml NEB Q4H PRN PRN Reason: Shortness Of Breath/wheezing Ascorbic Acid (Vitamin C) 500 mg PO DAILY [facility] Last Admin: 06/04/19 08:53 Dose: 500 mg Aspirin (Halfprin) 81 mg PO DAILY [facility] Last Admin: 06/04/19 08:53 Dose: 81 mg Betamethasone/Clotrimazole (Lotrisone) 0 gm TOP BID PRN PRN Reason: Other Bumetanide (Bumex) 2 mg PO BID@0600,1000 [facility] Carvedilol (Coreg) 6.25 mg PO BID [facility] Last Admin: 06/04/19 08:53 Dose: 6.25 mg Cholecalciferol (Vitamin D3) 25 mcg PO DAILY [facility] Last Admin: 06/04/19 08:53 Dose: 25 mcg Cyanocobalamin (Vitamin B12) 1,000 mcg PO DAILY [facility] Last Admin: 06/04/19 08:53 Dose: 1,000 mcg Cyclobenzaprine HCl (Flexeril) 10 mg PO BID PRN PRN Reason: Muscle Spasm Last Admin: 06/04/19 03:23 Dose: 10 mg Diphenhydramine HCl (Benadryl) 25 mg PO BEDTIME [facility] Last Admin: 06/03/19 22:27 Dose: 25 mg Duloxetine HCl (Cymbalta) 90 mg PO DAILY [facility] Last Admin: 06/04/19 08:54 Dose: 90 mg Insulin Aspart (Novolog) 0 unit SUBCUT TIDMEALS [facility] Last Admin: 06/04/19 11:55 Dose: Not Given Insulin Glargine (Lantus Solostar) 15 units SUBCUT BEDTIME [facility] Last Admin: 06/03/19 22:33 Dose: 15 units Levothyroxine Sodium (Levothyroxine) 150 mcg PO ACBREAKFAST [facility] Last Admin: 06/04/19 08:00 Dose: 150 mcg Loperamide HCl (Imodium) 2 mg PO Q4H PRN PRN Reason: Diarrhea Losartan Potassium (Cozaar) 25 mg PO DAILY [facility] Last Admin: 06/04/19 08:53 Dose: 25 mg Magnesium Oxide (Magnesium Oxide) 500 mg PO BIDMEALS [facility] Last Admin: 06/04/19 08:00 Dose: 500 mg Metolazone (Zaroxolyn) 2.5 mg PO Q72H [facility] Last Admin: 06/01/19 13:30 Dose: 2.5 mg Pantoprazole Sodium (Protonix) 40 mg PO ACBREAKFAST [facility] Last Admin: 06/04/19 08:00 Dose: 40 mg Polysaccharide Iron Complex (Ferrex 150) 150 mg PO DAILY [facility] Last Admin: 06/04/19 08:53 Dose: 150 mg Potassium Chloride (Klor-Con M20) 20 meq PO BIDMEALS [facility] Last Admin: 06/04/19 08:00 Dose: 20 meq Rosuvastatin Calcium (Crestor) 20 mg PO BEDTIME [facility] Last Admin: 06/03/19 22:28 Dose: 20 mg Fluticasone/Salmeterol (Advair Diskus 250-50) 1 puff INH BID [facility] Last Admin: 06/04/19 09:00 Dose: 1 puff Sodium Chloride (Saline Flush) 10 ml FLUSH Q8HR PRN PRN Reason: keep vein open Sodium Phosphate (Neutra-Phos) 250 mg PO BID [facility] Last Admin: 06/04/19 08:54 Dose: 250 mg Trospium (Sanctura) 20 mg PO BID [facility] Last Admin: 06/04/19 08:54 Dose: 20 mg Discontinued Medications Bumetanide (Bumex) 2 mg PO BID [facility] Last Admin: 06/02/19 09:14 Dose: 2 mg Bumetanide (Bumex) 2 mg PO BIDDIURETIC [facility] Last Admin: 06/04/19 08:54 Dose: 2 mg Calcium Carbonate/Glycine (Tums) 1,250 mg PO DAILY [facility] Last Admin: 06/04/19 08:54 Dose: 1,250 mg Diphenhydramine HCl (Benadryl) 25 mg PO DAILY [facility] Last Admin: 06/02/19 09:20 Dose: Not Given Diphenhydramine HCl (Benadryl) 25 mg PO ONETIME ONE Stop: 06/02/19 21:01 Last Admin: 06/02/19 21:14 Dose: 25 mg - Exam General: Alert, Oriented, Cooperative, No Acute Distress Lungs: Clear to Auscultation, Normal Respiratory Effort Cardiovascular: Regular Rate, Regular Rhythm, Murmurs (1/6 systolic murmur) GI/Abdominal Exam: Normal Bowel Sounds Extremities: Pedal Edema (Edema is improving, DYLON Stockings are in place.) Sepsis Event Note - Evaluation Sepsis Screening Result: No Definite Risk - Focused Exam Vital Signs: Vital Signs Temp Pulse Pulse Resp BP BP Pulse Ox 06/04/19 09:00 92 06/04/19 08:53 96 108/56 L 06/04/19 06:40 98.1 F 94 18 119/51 L 91 L Pulse Ox 06/04/19 09:00 92 L 06/04/19 08:53 06/04/19 06:40 Date Exam was Performed: 06/04/19 Time Exam was Performed: 12:41 - Problem List Review Problem List Initiated/Reviewed/Updated: Yes - My Orders Last 24 Hours: My Active Orders 06/03/19 21:00 diphenhydrAMINE [Benadryl] 25 mg PO BEDTIME 06/04/19 07:00 Vital Signs [RC] 0700 06/04/19 13:00 Bumetanide [Bumex] 2 mg PO BID@0600,1000 06/05/19 05:11 BMP [BASIC METABOLIC PANEL,BMP] [CHEM] AM CBC WITH AUTO DIFF [HEME] AM - Assessment Assessment:: HFrEF, initially admitted in [place]F, markedly improved. Will continue with home meds. Will change bumetanide to be at 6AM and 10AM Anemia, stable, periodic CBC. Pedal edema, improving, continue with diuretics and DYLON stockings. Hx bioprosthetic aortic valve in 2019. No longer requiring warfarin. CKD. Baseline creatinine is 1.8. Periodic BMP. May need to discontinue her metolazone if rising creatinine. DM2. Continue SSI and home meds. HTN. Well controlled, continue home meds. COOKIE. CPAP at night. Hypothyroidism. Continue levothyroxine. - Plan Plan:: HFrEF, initially admitted in [place]F, markedly improved. Will continue with home meds. Will change bumetanide to be at 6AM and 10AM Anemia, stable, periodic CBC. Pedal edema, improving, continue with diuretics and DYLON stockings. Hx bioprosthetic aortic valve in 2019. No longer requiring warfarin. CKD. Baseline creatinine is 1.8. Periodic BMP. May need to discontinue her metolazone if rising creatinine. DM2. Continue SSI and home meds. HTN. Well controlled, continue home meds. COOKIE. CPAP at night. Hypothyroidism. Continue levothyroxine.
[2019-06-04] MEDS: diphenhydrAMINE 25 MG Cap PO SCH (21:17)
[2019-06-04] MEDS: Rosuvastatin 10 MG Tab PO SCH (21:20)
[2019-06-04] MEDS: Insulin Glargine,Human Rec. Analog 100 Units/ML 3 ML Pen SUBCUT SCH (21:28)
[2019-06-05] MEDS: Bumetanide 1 MG Tab PO SCH ×2 (05:10→11:24)
[2019-06-05] MEDS: Pantoprazole 40 MG Tab.CR PO SCH (08:12)
[2019-06-05] MEDS: Potassium Chloride 20 MEQ Tab.ER PO SCH ×2 (08:12→18:23)
[2019-06-05] MEDS: Levothyroxine 75 MCG Tab PO SCH (08:12)
[2019-06-05] MEDS: Magnesium Oxide 500 MG Tab PO SCH ×2 (08:12→18:23)
[2019-06-05] MEDS: Insulin Aspart 100 Units/ML 3 ML Pen SUBCUT SCH ×3 (08:18→18:22)
[2019-06-05] MEDS: Carvedilol 6.25 MG Tab PO SCH ×2 (08:19→21:45)
[2019-06-05] MEDS: Cyanocobalamin (Vitamin B12) 500 MCG Tab PO SCH (08:19)
[2019-06-05] MEDS: Fluticasone/Salmeterol 250-50 MCG Inhalation Powder 14/Diskus INH SCH ×2 (08:19→22:17)
[2019-06-05] MEDS: Losartan 25 MG Tab PO SCH (08:21)
[2019-06-05] MEDS: Iron Polysaccharides Complex 150 MG Cap PO SCH (08:21)
[2019-06-05] MEDS: Calcium Carbonate 600 MG Tab PO SCH (08:22)
[2019-06-05] MEDS: Acetaminophen/Codeine 300-30 MG Tab PO SCH ×2 (08:22→21:43)
[2019-06-05] MEDS: DULoxetine 30 MG Cap PO SCH (08:22)
[2019-06-05] MEDS: Cholecalciferol (Vitamin D3) 25 MCG Tab PO SCH (08:23)
[2019-06-05] MEDS: Aspirin 81 MG Tab.EC PO SCH (08:23)
[2019-06-05] MEDS: Ascorbic Acid 500 MG Tab PO SCH (08:23)
[2019-06-05] MEDS: Phosphorus #1 250 MG Tab PO SCH ×2 (08:23→21:43)
[2019-06-05] MEDS: Trospium 20 MG Tab PO SCH ×2 (08:24→21:42)
[2019-06-05] MEDS: diphenhydrAMINE 25 MG Cap PO SCH (21:42)
[2019-06-05] MEDS: Rosuvastatin 10 MG Tab PO SCH (21:43)
[2019-06-05] MEDS: Insulin Glargine,Human Rec. Analog 100 Units/ML 3 ML Pen SUBCUT SCH (21:50)
[2019-06-06] MEDS: Bumetanide 1 MG Tab PO SCH ×2 (05:58→10:05)
[2019-06-06] MEDS: Levothyroxine 75 MCG Tab PO SCH (06:33)
[2019-06-06] MEDS: Pantoprazole 40 MG Tab.CR PO SCH (06:33)
[2019-06-06 08:00] LABS: ANION GAP 8.6 mmol/L (5-15)
[2019-06-06] MEDS: Insulin Aspart 100 Units/ML 3 ML Pen SUBCUT SCH ×3 (08:15→18:09)
[2019-06-06] MEDS: Losartan 25 MG Tab PO SCH (08:16)
[2019-06-06] MEDS: Aspirin 81 MG Tab.EC PO SCH (08:17)
[2019-06-06] MEDS: Potassium Chloride 20 MEQ Tab.ER PO SCH ×2 (08:17→18:12)
[2019-06-06] MEDS: Iron Polysaccharides Complex 150 MG Cap PO SCH (08:17)
[2019-06-06] MEDS: Phosphorus #1 250 MG Tab PO SCH ×2 (08:18→21:56)
[2019-06-06] MEDS: Ascorbic Acid 500 MG Tab PO SCH (08:18)
[2019-06-06] MEDS: DULoxetine 30 MG Cap PO SCH (08:18)
[2019-06-06] MEDS: Magnesium Oxide 500 MG Tab PO SCH ×2 (08:18→18:12)
[2019-06-06] MEDS: Cyanocobalamin (Vitamin B12) 500 MCG Tab PO SCH (08:19)
[2019-06-06] MEDS: Cholecalciferol (Vitamin D3) 25 MCG Tab PO SCH (08:19)
[2019-06-06] MEDS: Trospium 20 MG Tab PO SCH ×2 (08:19→21:56)
[2019-06-06] MEDS: Calcium Carbonate 600 MG Tab PO SCH (08:19)
[2019-06-06] MEDS: Carvedilol 6.25 MG Tab PO SCH ×2 (08:19→21:58)
[2019-06-06] MEDS: Acetaminophen/Codeine 300-30 MG Tab PO SCH ×2 (08:20→21:56)
[2019-06-06] MEDS: Fluticasone/Salmeterol 250-50 MCG Inhalation Powder 14/Diskus INH SCH ×2 (08:21→20:40)
[2019-06-06] MEDS: Rosuvastatin 10 MG Tab PO SCH (21:56)
[2019-06-06] MEDS: diphenhydrAMINE 25 MG Cap PO SCH (21:56)
[2019-06-06] MEDS: Insulin Glargine,Human Rec. Analog 100 Units/ML 3 ML Pen SUBCUT SCH (22:08)
[2019-06-07] MEDS: Levothyroxine 75 MCG Tab PO SCH (06:34)
[2019-06-07] MEDS: Pantoprazole 40 MG Tab.CR PO SCH (06:34)
[2019-06-07 07:55] LABS: ANION GAP 12.7 mmol/L (5-15)
[2019-06-07] MEDS: Cyanocobalamin (Vitamin B12) 500 MCG Tab PO SCH (08:08)
[2019-06-07] MEDS: Bumetanide 1 MG Tab PO SCH ×2 (08:08→12:06)
[2019-06-07] MEDS: Cholecalciferol (Vitamin D3) 25 MCG Tab PO SCH (08:09)
[2019-06-07] MEDS: Potassium Chloride 20 MEQ Tab.ER PO SCH ×2 (08:09→17:52)
[2019-06-07] MEDS: Trospium 20 MG Tab PO SCH ×2 (08:09→22:22)
[2019-06-07] MEDS: Magnesium Oxide 500 MG Tab PO SCH ×2 (08:10→17:52)
[2019-06-07] MEDS: Aspirin 81 MG Tab.EC PO SCH (08:10)
[2019-06-07] MEDS: Ascorbic Acid 500 MG Tab PO SCH (08:10)
[2019-06-07] MEDS: Iron Polysaccharides Complex 150 MG Cap PO SCH (08:10)
[2019-06-07] MEDS: Phosphorus #1 250 MG Tab PO SCH ×2 (08:11→22:21)
[2019-06-07] MEDS: Calcium Carbonate 600 MG Tab PO SCH (08:15)
[2019-06-07] MEDS: DULoxetine 30 MG Cap PO SCH (08:15)
[2019-06-07] MEDS: Formoterol/Mometasone 200-5 MCG 8.8 GM Inhaler IH SCH ×2 (08:47→20:39)
[2019-06-07] MEDS: Insulin Aspart 100 Units/ML 3 ML Pen SUBCUT SCH ×4 (08:57→22:27)
[2019-06-07] MEDS: Acetaminophen/Codeine 300-30 MG Tab PO SCH ×2 (08:58→22:22)
[2019-06-07] MEDS: Losartan 25 MG Tab PO SCH (08:59)
[2019-06-07] MEDS: Carvedilol 6.25 MG Tab PO SCH ×2 (08:59→22:23)
--- NOTE | 2019-06-07 09:29 | PCM.PN ---
- General Info Date of Service: 06/07/19 Admission Dx/Problem (Free Text): CHF exacerbation, generalized weakness. - Review of Systems Systems Review Comment:: Victorina is seen today on swingbed rounds. She had a good weekend. When I see her she has just gotten up. Her back was hurting her last night, not enough to require a pain pill but enough she had a hard time getting comfortable to sleep. She did eventually get to sleep around 2AM and slept until 9AM. Back pain is better this morning. Weight is down to 281 from a high of 306. Her BUN and Creatinine were rising and so I stopped her metolazone. Renal function is still elevated but stabilized. She is hoping she can go home later this week. - Patient Data Vitals - Most Recent: Last Vital Signs Temp 98.5 F 06/07/19 06:28 Pulse 96 06/07/19 08:59 Resp 18 06/07/19 06:28 BP 121/62 06/07/19 08:59 Pulse Ox 93 L 06/07/19 06:28 Weight - Most Recent: 281 lb 6 oz I&O - Last 24 Hours: Intake & Output 06/06/19 06/07/19 06/07/19 22:59 06:59 14:59 Intake Total 350 400 Output Total 1975 1500 Balance -1625 -1100 Lab Results Last 24 Hours: Laboratory Results - last 24 hr 06/07/19 06/07/19 Range/Units 07:05 07:05 Hgb 8.7 L (12.0-16.0) g/dL Hct 29.0 L (37.0-47.0) % Sodium 136 (136-145) mmol/L Potassium 4.0 (3.3-5.3) mmol/L Chloride 96 L (98-115) mmol/L Carbon Dioxide 31.3 (21.0-32.0) mmol/L Anion Gap 12.7 (5-15) mmol/L BUN 57 H* (6-25) mg/dL Creatinine 1.45 H (0.51-1.17) mg/dL Est Cr Clr Drug Dosing 29.58 mL/min Estimated GFR (MDRD) 36 mL/min Glucose 340 H (75 - 99) mg/dL Calcium 8.0 L (8.7-10.3) mg/dL Med Orders - Current: Current Medications Acetaminophen/Codeine Phosphate (Tylenol With Codeine No.3 300mg/30mg) 1 tab PO BID [facility] Last Admin: 06/07/19 08:58 Dose: 1 tab Acetaminophen/Codeine Phosphate (Tylenol With Codeine No.3 300mg/30mg) 1 tab PO DAILY PRN PRN Reason: Pain Albuterol (Ventolin Hfa) 0 gm INH Q4H PRN PRN Reason: shortness of breath Albuterol/Ipratropium (Duoneb 3.0-0.5 Mg/3 Ml) 3 ml NEB Q4H PRN PRN Reason: Shortness Of Breath/wheezing Ascorbic Acid (Vitamin C) 500 mg PO DAILY [facility] Last Admin: 06/07/19 08:10 Dose: 500 mg Aspirin (Halfprin) 81 mg PO DAILY [facility] Last Admin: 06/07/19 08:10 Dose: 81 mg Betamethasone/Clotrimazole (Lotrisone) 0 gm TOP BID PRN PRN Reason: Other Bumetanide (Bumex) 2 mg PO BID@0600,1000 [facility] Last Admin: 06/07/19 08:08 Dose: 2 mg Calcium Carbonate/Glycine (Calcium Carbonate) 1,200 mg PO DAILY [facility] Last Admin: 06/07/19 08:15 Dose: 1,200 mg Carvedilol (Coreg) 6.25 mg PO BID [facility] Last Admin: 06/07/19 08:59 Dose: 6.25 mg Cholecalciferol (Vitamin D3) 25 mcg PO DAILY [facility] Last Admin: 06/07/19 08:09 Dose: 25 mcg Cyanocobalamin (Vitamin B12) 1,000 mcg PO DAILY [facility] Last Admin: 06/07/19 08:08 Dose: 1,000 mcg Cyclobenzaprine HCl (Flexeril) 10 mg PO BID PRN PRN Reason: Muscle Spasm Last Admin: 06/04/19 03:23 Dose: 10 mg Diphenhydramine HCl (Benadryl) 25 mg PO BEDTIME [facility] Last Admin: 06/06/19 21:56 Dose: 25 mg Duloxetine HCl (Cymbalta) 90 mg PO DAILY [facility] Last Admin: 06/07/19 08:15 Dose: 90 mg Insulin Aspart (Novolog) 0 unit SUBCUT TIDMEALS [facility] Last Admin: 06/07/19 08:57 Dose: 12 units Insulin Glargine (Lantus Solostar) 15 units SUBCUT BEDTIME [facility] Last Admin: 06/06/19 22:08 Dose: 15 units Levothyroxine Sodium (Levothyroxine) 150 mcg PO ACBREAKFAST [facility] Last Admin: 06/07/19 06:34 Dose: 150 mcg Loperamide HCl (Imodium) 2 mg PO Q4H PRN PRN Reason: Diarrhea Losartan Potassium (Cozaar) 25 mg PO DAILY [facility] Last Admin: 06/07/19 08:59 Dose: 25 mg Magnesium Oxide (Magnesium Oxide) 500 mg PO BIDMEALS [facility] Last Admin: 06/07/19 08:10 Dose: 500 mg Mometasone Furoate/Formoterol Fumar (Dulera 200-5 Mcg) 2 puff IH BIDRT [facility] Last Admin: 06/07/19 08:47 Dose: 2 puff Pantoprazole Sodium (Protonix) 40 mg PO ACBREAKFAST [facility] Last Admin: 06/07/19 06:34 Dose: 40 mg Polysaccharide Iron Complex (Ferrex 150) 150 mg PO DAILY [facility] Last Admin: 06/07/19 08:10 Dose: 150 mg Potassium Chloride (Klor-Con M20) 20 meq PO BIDMEALS [facility] Last Admin: 06/07/19 08:09 Dose: 20 meq Rosuvastatin Calcium (Crestor) 20 mg PO BEDTIME [facility] Last Admin: 06/06/19 21:56 Dose: 20 mg Sodium Chloride (Saline Flush) 10 ml FLUSH Q8HR PRN PRN Reason: keep vein open Sodium Phosphate (Neutra-Phos) 250 mg PO BID [facility] Last Admin: 06/07/19 08:11 Dose: 250 mg Trospium (Sanctura) 20 mg PO BID [facility] Last Admin: 06/07/19 08:09 Dose: 20 mg Discontinued Medications Bumetanide (Bumex) 2 mg PO BID [facility] Last Admin: 06/02/19 09:14 Dose: 2 mg Bumetanide (Bumex) 2 mg PO BIDDIURETIC [facility] Last Admin: 06/04/19 08:54 Dose: 2 mg Calcium Carbonate/Glycine (Tums) 1,250 mg PO DAILY [facility] Last Admin: 06/04/19 08:54 Dose: 1,250 mg Diphenhydramine HCl (Benadryl) 25 mg PO DAILY [facility] Last Admin: 06/02/19 09:20 Dose: Not Given Diphenhydramine HCl (Benadryl) 25 mg PO ONETIME ONE Stop: 06/02/19 21:01 Last Admin: 06/02/19 21:14 Dose: 25 mg Metolazone (Zaroxolyn) 2.5 mg PO Q72H [facility] Last Admin: 06/04/19 12:48 Dose: 2.5 mg Fluticasone/Salmeterol (Advair Diskus 250-50) 1 puff INH BID [facility] Last Admin: 06/06/19 20:40 Dose: Not Given - Exam General: Alert, Oriented, Cooperative, No Acute Distress Lungs: Clear to Auscultation, Normal Respiratory Effort Cardiovascular: Regular Rate, Regular Rhythm, Murmurs (1/6 systolic murmur) GI/Abdominal Exam: Normal Bowel Sounds Extremities: Pedal Edema (Pedal edema is markedly improved. ) Sepsis Event Note - Evaluation Sepsis Screening Result: No Definite Risk - Focused Exam Vital Signs: Vital Signs Temp Pulse Pulse Resp BP BP Pulse Ox 06/07/19 08:59 96 121/62 06/07/19 06:28 98.5 F 97 18 113/56 L 93 L 06/06/19 21:58 91 118/58 L Pulse Ox 06/07/19 08:59 06/07/19 06:28 06/06/19 21:58 95 Date Exam was Performed: 06/07/19 Time Exam was Performed: 09:25 - Problem List Review Problem List Initiated/Reviewed/Updated: Yes - My Orders Last 24 Hours: My Active Orders 06/07/19 09:00 Mometasone/Formoterol [Dulera 200-5 MCG] 2 puff IH BIDRT - Assessment Assessment:: HFrEF, [place], markedly improved. Metolazone has been discontinued due to rising renal function. Anemia, stable, periodic CBC. Pedal edema, improving, continue with diuretics and DYLON stockings. Hx bioprosthetic aortic valve in 2019. No longer requiring warfarin. CKD. Baseline creatinine is 1.8. Periodic BMP. DM2. Continue SSI and home meds. HTN. Well controlled, continue home meds. COOKIE. CPAP at night. Hypothyroidism. Continue levothyroxine. - Plan Plan:: HFrEF, [place], markedly improved. Metolazone has been discontinued due to rising renal function. Anemia, stable, periodic CBC. Pedal edema, improving, continue with diuretics and DYLON stockings. Hx bioprosthetic aortic valve in 2019. No longer requiring warfarin. CKD. Baseline creatinine is 1.8. Periodic BMP. DM2. Continue SSI and home meds. HTN. Well controlled, continue home meds. COOKIE. CPAP at night. Hypothyroidism. Continue levothyroxine.
[2019-06-07] MEDS: Rosuvastatin 10 MG Tab PO SCH (22:22)
[2019-06-07] MEDS: diphenhydrAMINE 25 MG Cap PO SCH (22:22)
[2019-06-07] MEDS: Insulin Glargine,Human Rec. Analog 100 Units/ML 3 ML Pen SUBCUT SCH (22:27)
[2019-06-08] MEDS: Bumetanide 1 MG Tab PO SCH (05:08)
[2019-06-08] MEDS: Levothyroxine 75 MCG Tab PO SCH (06:31)
[2019-06-08] MEDS: Pantoprazole 40 MG Tab.CR PO SCH (06:31)
[2019-06-08] MEDS: Formoterol/Mometasone 200-5 MCG 8.8 GM Inhaler IH SCH ×2 (07:45→21:13)
[2019-06-08] MEDS: DULoxetine 30 MG Cap PO SCH (08:11)
[2019-06-08] MEDS: Potassium Chloride 20 MEQ Tab.ER PO SCH ×2 (08:12→18:02)
[2019-06-08] MEDS: Calcium Carbonate 600 MG Tab PO SCH (08:12)
[2019-06-08] MEDS: Aspirin 81 MG Tab.EC PO SCH (08:12)
[2019-06-08] MEDS: Trospium 20 MG Tab PO SCH ×2 (08:12→21:14)
[2019-06-08] MEDS: Cyanocobalamin (Vitamin B12) 500 MCG Tab PO SCH (08:13)
[2019-06-08] MEDS: Ascorbic Acid 500 MG Tab PO SCH (08:13)
[2019-06-08] MEDS: Acetaminophen/Codeine 300-30 MG Tab PO SCH ×2 (08:13→21:14)
[2019-06-08] MEDS: Cholecalciferol (Vitamin D3) 25 MCG Tab PO SCH (08:13)
[2019-06-08] MEDS: Phosphorus #1 250 MG Tab PO SCH ×2 (08:14→21:13)
[2019-06-08] MEDS: Insulin Aspart 100 Units/ML 3 ML Pen SUBCUT SCH ×4 (08:14→21:23)
[2019-06-08] MEDS: Magnesium Oxide 500 MG Tab PO SCH ×2 (08:14→18:02)
[2019-06-08] MEDS: Iron Polysaccharides Complex 150 MG Cap PO SCH (08:14)
[2019-06-08] MEDS: Losartan 25 MG Tab PO SCH (08:16)
[2019-06-08] MEDS: Carvedilol 6.25 MG Tab PO SCH ×2 (08:17→21:14)
[2019-06-08] MEDS: Rosuvastatin 10 MG Tab PO SCH (21:14)
[2019-06-08] MEDS: diphenhydrAMINE 25 MG Cap PO SCH (21:14)
[2019-06-08] MEDS: Insulin Glargine,Human Rec. Analog 100 Units/ML 3 ML Pen SUBCUT SCH (21:21)
[2019-06-09] MEDS: Bumetanide 1 MG Tab PO SCH (06:41)
[2019-06-09] MEDS: Levothyroxine 75 MCG Tab PO SCH (06:42)
[2019-06-09] MEDS: Pantoprazole 40 MG Tab.CR PO SCH (06:43)
[2019-06-09] MEDS: Insulin Aspart 100 Units/ML 3 ML Pen SUBCUT SCH ×4 (08:11→23:05)
[2019-06-09] MEDS: Calcium Carbonate 600 MG Tab PO SCH (08:14)
[2019-06-09] MEDS: Cyanocobalamin (Vitamin B12) 500 MCG Tab PO SCH (08:14)
[2019-06-09] MEDS: Trospium 20 MG Tab PO SCH ×2 (08:14→22:53)
[2019-06-09] MEDS: Phosphorus #1 250 MG Tab PO SCH ×2 (08:14→22:55)
[2019-06-09] MEDS: Cholecalciferol (Vitamin D3) 25 MCG Tab PO SCH (08:15)
[2019-06-09] MEDS: Ascorbic Acid 500 MG Tab PO SCH (08:15)
[2019-06-09] MEDS: Magnesium Oxide 500 MG Tab PO SCH ×2 (08:15→17:45)
[2019-06-09] MEDS: Iron Polysaccharides Complex 150 MG Cap PO SCH (08:15)
[2019-06-09] MEDS: Aspirin 81 MG Tab.EC PO SCH (08:15)
[2019-06-09] MEDS: DULoxetine 30 MG Cap PO SCH (08:15)
[2019-06-09] MEDS: Losartan 25 MG Tab PO SCH (08:17)
[2019-06-09] MEDS: Potassium Chloride 20 MEQ Tab.ER PO SCH ×2 (08:17→17:45)
[2019-06-09] MEDS: Carvedilol 6.25 MG Tab PO SCH ×2 (08:22→22:55)
[2019-06-09] MEDS: Acetaminophen/Codeine 300-30 MG Tab PO SCH ×2 (08:23→22:54)
[2019-06-09] MEDS: Formoterol/Mometasone 200-5 MCG 8.8 GM Inhaler IH SCH ×2 (08:33→22:51)
--- NOTE | 2019-06-09 09:43 | PCM.DCSUM1 ---
Discharge Summary - Hospital Course Free Text/Narrative:: Admission to [facility]ing[facility]: 06/01/2019 Discharge from Swingbed: 06/10/2019 Disposition: Home with home health for PT, OT, half-way. Admission Diagnoses from 06/01/2019: Ischemic cardiomyopathy with HFrEF, 40-45%, markedly improved. Weight down from max 306 to 281 at discharge. Generalized weakness Anemia Pedal edema secondary to CHF Hx bioprosthetic aortic valve replacement 2018 Acute on chronic renal failure, baseline creatinine 1.8, currently improved. Diabetes mellitus, A1C 7.6. HTN COOKIE on CPAP Hypothyroidism Hypoxemia, requiring O2. Discharge Diagnoses from 06/10/2019: Ischemic cardiomyopathy with HFrEF, 40-45%. Generalized weakness. Improving, home health for PT and OT Anemia, stable, s/p 1 unit PRBC on 05/30/2019. Hemoglobin on discharge was 9.1. Pedal edema secondary to CHF, Will change Bumex to 2 mg once daily, increase to twice daily if 3 pounds increase in 1 day or 5 pound increase over 3 days. This is markedly improved at discharge. She will continue with compression stockings at home. Hx bioprosthetic aortic valve replacement 2018, warfarin no longer needed. Acute on chronic renal failure, baseline creatinine 1.8, currently 1.34. Diabetes mellitus, A1C 7.6. Resume home insulin regimen. HTN, continue CoReg and Losartan COOKIE on CPAP Hypothyroidism, continue levothyroxine. Hypoxemia, resolved, no need to home O2. MEDICATION CHANGES: D/C metolazone Decrease Bumex to once daily (instead of twice daily). Code Status: Full Code Diet: Diabetic, Heart Healthy FACE TO FACE FOR HOME HEALTH: Face to face encounter for home health to include PT, OT and half-way occurred on 06/09/2019. She is home bound due to decreased strength and endurance due to heart failure with recent exacerbation. Home management of multiple disease processes including CHF and diabetes most notably will benefit from half-way to help with diabetes management as well as weight checks and medication set up and monitoring for appropriate use of medications. She will benefit from PT and OT for strengthening to improve mobility and reduce risk of falls. She will be followed by Dr. Brenda Mcpherson in the community setting and she will sign the home health orders. Victorina was admitted on 05/28/2019 with SOB, CHF exacerbation and hypoxia. Of note , she has a very complicated medial history. She was actually seen in the ER on 05/18/2019 for decreased level of consciousness. She was afebrile but hypotensive and saturating at 80% on room air which corrected with 4L nasal cannula. She was anemic with an elevated WBC at 35,000 No obvious source of bleeding, hemoglobin was 5.5. CXR showed bilateral infiltrates and she was given Rocephin. Potassium was 6.0, INR was >18. She was intubated for and shortly after intubation coded and required CPR x 2 minutes and epinephrine x 1 dose with ROSC. Her admitting diagnoses to [facility] at that time were: Pulmonary infiltrates. Brief cardiac arrest Acute hypercapnic and hypoxemic respiratory failure secondary to ARDS from pneumonia. ARDS Shock Acute on chronic renal failure secondary to hypoperfusion and ATN Hyperkalemia Anion gap metabolic acidosis secondary to renal failure and lactic acidosis Lactic acidosis Normocytic anemia Leukocytosis Elevated troponin secondary to demand ischemia Ischemic cardiomyopathy, EF 40-45% Acute elevation of INR Hx CABG x 10 December 2018 Hx loculated hemorrhagic pleural effusion s/p chest tube 01/2019 Moganella morganii gram negative bacteremia in 01/2019 s/p cephalosporin antibiotics x 14 days Klebsiella UTI 01/2019 Pseudomonal sternal wound infection 01/2019 Hx of bioprosthetic aortic valve with trace perivalvular regurgitation around the prosthetic aortic valve Uncontrolled DM on insulin Hypothyroidism Hx asthma Sleep apnea on CPAP with hx of narcolepsy HTN Discharge Diagnoses from [facility] include: Cardiac arrest, post intubation. Echo was stable. EF 40-45%. Acute hypercapnic/hypoxic respiratory failure secondary to pneumonia ARDS. Completed 7 days of Zosyn and docycycline with negative cultures. Septic shock, requiring pressor support. Lactic acidosis Shock liver Normocytic anemia s/p 3 units of PRBC's Supratherapeutic INR, warfarin discontinued due to completion of therapy. Acute CKD stage 3 at baseline. Weakness She was in the hospital at [facility] from 05/18/2019 - 05/26/2019 and was discharged with home health. She states she was not ready to go home, that she had a temp of 99.2 "and my temp is 96.6 so I had a fever" and also that she needed to go home with oxygen but that was never evaluated or arranged for her. When she got home she was very tired and was using her CPAP most of the day due to difficulty breathing. She eventually ended up in the ER on 05/28/2019 due to low O2 sats (84% at home on RA) and SOB. She was noted to have CHF exacerbation. She was given lasix 20 mg IV initially then the following day 40 mg IV with nice diuresis. She is breathing more easily. She received 1 unit PRBC on 05/30 due to hemoglobin drop from 7.6 to 7.1 without obvious source of bleeding. She is no long on warfarin having completed her 3 month course after her AVR. Diagnosis: Stroke: No Modified Sacul Scale: No Signif.Disability Despite Sympt.Able to Carry Out Usual Act./Duties Modified Sacul Scale Score: 1 - Discharge Data Discharge Date: 06/10/19 Discharge Disposition: Home, W Home Health Agency 06 Condition: Good - Referral to Home Health Date of Face to Face Encounter: 06/09/19 Reason for Homebound Status: Weakness due to CHF exacerbation with prolonged hospital stay. Primary Care Physician: Brenda Gomez MD Skilled Need: PT, OT and half-way. - Patient Summary/Data Consults: Consultations 06/01/19 12:10 PT Evaluation and Treatment [CONS] Routine Respiratory Care Assess and Treatment [CONS] Routine 06/01/19 16:13 Consult to Case Management/Process Technician [CONS] Routine - Patient Instructions Diet: Heart Healthy Diet, Diabetic Diet - Discharge Plan *PRESCRIPTION DRUG MONITORING PROGRAM REVIEWED*: Not Applicable *COPY OF PRESCRIPTION DRUG MONITORING REPORT IN PATIENT JESS: Not Applicable Home Medications: Home Meds DULoxetine [Cymbalta] 90 mg PO BEDTIME 09/29/16 [History] Fesoterodine Fumarate [Toviaz] 8 mg PO DAILY 09/29/16 [History] Fluticasone/Salmeterol [Advair 250-50 Diskus] 1 puff INH BID PRN 09/29/16 [ History] Insulin Aspart [Novolog Flexpen] 0 units SQ QID PRN 09/30/16 [History] Acetaminophen with Codeine [Acetaminophen-Cod #3] 1 tab PO BID 01/11/19 [History ] Aspirin [Ecotrin EC] 81 mg PO DAILY 01/11/19 [History] Levothyroxine Sodium [Synthroid] 150 mcg PO DAILY 01/11/19 [History] Pantoprazole Sodium [Protonix] 40 mg PO DAILY@1700 01/11/19 [History] Phosphorus #1 [Virt-Phos 250 Neutral Tablet] 250 mg PO BID 01/11/19 [History] Potassium Chloride 20 meq PO BIDMEALS 01/11/19 [History] Rosuvastatin Calcium 20 mg PO BEDTIME 01/11/19 [History] carvediloL [Carvedilol] 6.25 mg PO BIDMEALS 01/11/19 [History] Albuterol Sulfate [Proair Hfa] 1 - 2 puff INH Q4H PRN 05/31/19 [History] Ascorbic Acid 500 mg PO DAILY 05/31/19 [History] Cholecalciferol (Vitamin D3) [Vitamin D3] 25 mcg PO DAILY 05/31/19 [History] Cinnamon Bark [Cinnamon] 500 mg PO DAILY 05/31/19 [History] Clotrimazole/Betamethasone Dip [Lotrisone Cream] 1 applic TP BID PRN 05/31/19 [ History] Cyanocobalamin (Vitamin B-12) [Vitamin B-12] 1,000 mcg PO DAILY 05/31/19 [ History] Cyclobenzaprine [Flexeril] 10 mg PO BID PRN 05/31/19 [History] Docusate Sodium [Colace] 100 mg PO BID 05/31/19 [History] Iron Polysaccharide Complex [Polysaccharide Iron] 150 mg PO DAILY 05/31/19 [ History] Losartan [Cozaar] 25 mg PO DAILY 05/31/19 [History] Magnesium Oxide 400 mg PO BIDMEALS 05/31/19 [History] Sennosides/Docusate Sodium [Senna-Docusate Sodium Tablet] 1 each PO DAILY [History] diphenhydrAMINE [Benadryl] 25 mg PO DAILY 05/31/19 [History] Non-Formulary Medication [NF Drug] 2 tab PO DAILY 06/01/19 [History] Bumetanide [Bumex] 2 mg PO DAILY@0600 tablet 06/09/19 [Rx] Calcium Carbonate 1,200 mg PO DAILY tablet 06/09/19 [Rx] Insulin Glarg,Human.Rec.Analog [Lantus Solostar] 15 units SUBCUT BEDTIME pen [Rx] - Discharge Summary/Plan Comment DC Time >30 min.: Yes Discharge Summary/Plan Comment: Total time 45 minutes. - General Info Date of Service: 06/09/19 Admission Dx/Problem (Free Text: CHF exacerbation, generalized weakness. - Review of Systems Systems Review Comment: Victorina is feeling much better today. She is ready to discharge to home tomorrow. She reports her pain is controlled with T#3 up to 3 times daily per her home regimen. Weight is stable, pedal edema is markedly improved. - Patient Data Vitals - Most Recent: Last Vital Signs Temp 97.7 F 06/09/19 07:00 Pulse 102 H 06/09/19 08:22 Resp 20 06/09/19 07:00 BP 135/75 06/09/19 08:22 Pulse Ox 94 L 06/09/19 07:00 Weight - Most Recent: 281 lb 3.2 oz I&O - Last 24 hours: Intake & Output 06/08/19 06/09/19 06/09/19 22:59 06:59 14:59 Intake Total 575 200 Output Total 1125 1850 Balance -550 -1650 Lab Results - Last 24 hrs: Laboratory Results - last 24 hr 06/09/19 06/09/19 Range/Units 07:10 07:10 Hgb 9.1 L (12.0-16.0) g/dL Hct 30.1 L (37.0-47.0) % BUN 52 H* (6-25) mg/dL Creatinine 1.28 H (0.51-1.17) mg/dL Est Cr Clr Drug Dosing 33.51 mL/min Estimated GFR (MDRD) 42 mL/min Med Orders - Current: Current Medications Acetaminophen/Codeine Phosphate (Tylenol With Codeine No.3 300mg/30mg) 1 tab PO BID [facility] Last Admin: 06/09/19 08:23 Dose: 1 tab Acetaminophen/Codeine Phosphate (Tylenol With Codeine No.3 300mg/30mg) 1 tab PO DAILY PRN PRN Reason: Pain Albuterol (Ventolin Hfa) 0 gm INH Q4H PRN PRN Reason: shortness of breath Albuterol/Ipratropium (Duoneb 3.0-0.5 Mg/3 Ml) 3 ml NEB Q4H PRN PRN Reason: Shortness Of Breath/wheezing Ascorbic Acid (Vitamin C) 500 mg PO DAILY [facility] Last Admin: 06/09/19 08:15 Dose: 500 mg Aspirin (Halfprin) 81 mg PO DAILY [facility] Last Admin: 06/09/19 08:15 Dose: 81 mg Betamethasone/Clotrimazole (Lotrisone) 0 gm TOP BID PRN PRN Reason: Other Bumetanide (Bumex) 2 mg PO DAILY@0600 [facility] Last Admin: 06/09/19 06:41 Dose: 2 mg Calcium Carbonate/Glycine (Calcium Carbonate) 1,200 mg PO DAILY [facility] Last Admin: 06/09/19 08:14 Dose: 1,200 mg Carvedilol (Coreg) 6.25 mg PO BID [facility] Last Admin: 06/09/19 08:22 Dose: 6.25 mg Cholecalciferol (Vitamin D3) 25 mcg PO DAILY [facility] Last Admin: 06/09/19 08:15 Dose: 25 mcg Cyanocobalamin (Vitamin B12) 1,000 mcg PO DAILY [facility] Last Admin: 06/09/19 08:14 Dose: 1,000 mcg Cyclobenzaprine HCl (Flexeril) 10 mg PO BID PRN PRN Reason: Muscle Spasm Last Admin: 06/04/19 03:23 Dose: 10 mg Diphenhydramine HCl (Benadryl) 25 mg PO BEDTIME [facility] Last Admin: 06/08/19 21:14 Dose: 25 mg Duloxetine HCl (Cymbalta) 90 mg PO DAILY [facility] Last Admin: 06/09/19 08:15 Dose: 90 mg Insulin Aspart (Novolog) 0 unit SUBCUT WITHMEALSANDBED [facility] Last Admin: 06/09/19 08:11 Dose: 20 units Insulin Glargine (Lantus Solostar) 15 units SUBCUT BEDTIME [facility] Last Admin: 06/08/19 21:21 Dose: 15 units Levothyroxine Sodium (Levothyroxine) 150 mcg PO ACBREAKFAST [facility] Last Admin: 06/09/19 06:42 Dose: 150 mcg Loperamide HCl (Imodium) 2 mg PO Q4H PRN PRN Reason: Diarrhea Losartan Potassium (Cozaar) 25 mg PO DAILY [facility] Last Admin: 06/09/19 08:17 Dose: 25 mg Magnesium Oxide (Magnesium Oxide) 500 mg PO BIDMEALS [facility] Last Admin: 06/09/19 08:15 Dose: 500 mg Mometasone Furoate/Formoterol Fumar (Dulera 200-5 Mcg) 2 puff IH BIDRT [facility] Last Admin: 06/09/19 08:33 Dose: 2 puff Pantoprazole Sodium (Protonix) 40 mg PO ACBREAKFAST [facility] Last Admin: 06/09/19 06:43 Dose: 40 mg Polysaccharide Iron Complex (Ferrex 150) 150 mg PO DAILY [facility] Last Admin: 06/09/19 08:15 Dose: 150 mg Potassium Chloride (Klor-Con M20) 20 meq PO BIDMEALS [facility] Last Admin: 06/09/19 08:17 Dose: 20 meq Rosuvastatin Calcium (Crestor) 20 mg PO BEDTIME [facility] Last Admin: 06/08/19 21:14 Dose: 20 mg Sodium Chloride (Saline Flush) 10 ml FLUSH Q8HR PRN PRN Reason: keep vein open Sodium Phosphate (Neutra-Phos) 250 mg PO BID [facility] Last Admin: 06/09/19 08:14 Dose: 250 mg Trospium (Sanctura) 20 mg PO BID [facility] Last Admin: 06/09/19 08:14 Dose: 20 mg Discontinued Medications Bumetanide (Bumex) 2 mg PO BID [facility] Last Admin: 06/02/19 09:14 Dose: 2 mg Bumetanide (Bumex) 2 mg PO BIDDIURETIC [facility] Last Admin: 06/04/19 08:54 Dose: 2 mg Bumetanide (Bumex) 2 mg PO BID@0600,1000 [facility] Last Admin: 06/08/19 05:08 Dose: 2 mg Calcium Carbonate/Glycine (Tums) 1,250 mg PO DAILY [facility] Last Admin: 06/04/19 08:54 Dose: 1,250 mg Diphenhydramine HCl (Benadryl) 25 mg PO DAILY [facility] Last Admin: 06/02/19 09:20 Dose: Not Given Diphenhydramine HCl (Benadryl) 25 mg PO ONETIME ONE Stop: 06/02/19 21:01 Last Admin: 06/02/19 21:14 Dose: 25 mg Insulin Aspart (Novolog) 0 unit SUBCUT TIDMEALS [facility] Last Admin: 06/07/19 12:26 Dose: 22 units Metolazone (Zaroxolyn) 2.5 mg PO Q72H [facility] Last Admin: 06/04/19 12:48 Dose: 2.5 mg Fluticasone/Salmeterol (Advair Diskus 250-50) 1 puff INH BID [facility] Last Admin: 06/06/19 20:40 Dose: Not Given - Exam General: Reports: Alert, Oriented, Cooperative, No Acute Distress Lungs: Reports: Clear to Auscultation, Normal Respiratory Effort Cardiovascular: Reports: Regular Rate, Regular Rhythm, Murmurs (2/6 systolic m urmur) GI/Abdominal Exam: Normal Bowel Sounds Extremities: Pedal Edema (Edema markedly improved from admission.)
[2019-06-09] MEDS: Rosuvastatin 10 MG Tab PO SCH (22:52)
[2019-06-09] MEDS: diphenhydrAMINE 25 MG Cap PO SCH (22:54)
[2019-06-09] MEDS: Insulin Glargine,Human Rec. Analog 100 Units/ML 3 ML Pen SUBCUT SCH (23:00)
[2019-06-10] MEDS: Bumetanide 1 MG Tab PO SCH (05:37)
[2019-06-10] MEDS: Pantoprazole 40 MG Tab.CR PO SCH (06:30)
[2019-06-10] MEDS: Levothyroxine 75 MCG Tab PO SCH (06:30)
[2019-06-10] MEDS: Ascorbic Acid 500 MG Tab PO SCH (08:41)
[2019-06-10] MEDS: Calcium Carbonate 600 MG Tab PO SCH (08:42)
[2019-06-10] MEDS: Potassium Chloride 20 MEQ Tab.ER PO SCH (08:42)
[2019-06-10] MEDS: Cyanocobalamin (Vitamin B12) 500 MCG Tab PO SCH (08:42)
[2019-06-10] MEDS: Magnesium Oxide 500 MG Tab PO SCH (08:42)
[2019-06-10] MEDS: DULoxetine 30 MG Cap PO SCH (08:43)
[2019-06-10] MEDS: Cholecalciferol (Vitamin D3) 25 MCG Tab PO SCH (08:44)
[2019-06-10] MEDS: Phosphorus #1 250 MG Tab PO SCH (08:44)
[2019-06-10] MEDS: Trospium 20 MG Tab PO SCH (08:44)
[2019-06-10] MEDS: Iron Polysaccharides Complex 150 MG Cap PO SCH (08:44)
[2019-06-10] MEDS: Aspirin 81 MG Tab.EC PO SCH (08:44)
[2019-06-10] MEDS: Acetaminophen/Codeine 300-30 MG Tab PO SCH (08:45)
[2019-06-10] MEDS: Insulin Aspart 100 Units/ML 3 ML Pen SUBCUT SCH ×2 (08:49→12:01)
[2019-06-10] MEDS: Carvedilol 6.25 MG Tab PO SCH (08:50)
[2019-06-10] MEDS: Losartan 25 MG Tab PO SCH (08:51)
[2019-06-10] MEDS: Formoterol/Mometasone 200-5 MCG 8.8 GM Inhaler IH SCH (08:55)
[2019-06-10 09:06] VITALS: BP 128/60; PULSE 96
== END 2019-06-10 15:30 | disposition home health service (06) | DRG 291 ==
LOC: KA.MS 12:06 → UNDOADMIN 12:10 → KA.MS 12:10
PROVIDERS: ADMIT Internal Medicine; ATTEND Internal Medicine
DX: I13.0 Hypertensive heart and chronic kidney disease with heart failure and stage 1 through stage 4 chronic kidney disease, or unspecified chronic kidney disease (principal); I50.23 Acute on chronic systolic (congestive) heart failure; N17.9 Acute kidney failure, unspecified; R53.1 Weakness; D64.9 Anemia, unspecified; E11.22 Type 2 diabetes mellitus with diabetic chronic kidney disease; G47.33 Obstructive sleep apnea (adult) (pediatric); E03.9 Hypothyroidism, unspecified; I25.5 Ischemic cardiomyopathy; R09.02 Hypoxemia; Z95.2 Presence of prosthetic heart valve; N18.3 Chronic kidney disease, stage 3 (moderate); Z79.82 Long term (current) use of aspirin; Z79.890 Hormone replacement therapy; Z79.899 Other long term (current) drug therapy
CPT/HCPCS: 36415; 80048; 82565; 84520; 85014; 85018; 85025; 94640; 97110-GP; 97162-GP; A9270-GY; J1815-GY

== ENCOUNTER 2019-06-16 23:25 | Observation (INO) | payer MEDICARE, OTHER, MEDICAID ==
--- NOTE | 2019-06-16 23:43 | EDM.PDOC ---
ED HPI GENERAL MEDICAL PROBLEM - General Chief Complaint: General Stated Complaint: fall Time Seen by Provider: 06/16/19 23:30 Source of Information: Reports: Patient, EMS, EMS Notes Reviewed History Limitations: Reports: No Limitations - History of Present Illness INITIAL COMMENTS - FREE TEXT/NARRATIVE: Patient is a 64-year-old female who presents to the emergency department via EMS for complaint of fall. Patient states that she was carrying bags into the house from the car and slipped and fell landing on her right shoulder and arm. Incident occurred approximately 1030 this evening. Patient denies dizziness preceding incident, head injury, loss of consciousness, neck pain, nausea, vomiting, hip pain, chest pain or shortness of breath. Onset: Today Onset Date: 06/16/19 Onset Time: 22:30 Duration: Hour(s): Location: Reports: Upper Extremity, Right Quality: Reports: Ache, Sharp Severity: Moderate Improves with: Reports: None Worsens with: Reports: Movement Context: Reports: Trauma (Fall from standing position) Associated Symptoms: Reports: No Other Symptoms. Denies: Confusion, Chest Pain , Diaphoresis, Fever/Chills, Headaches, Nausea/Vomiting, Seizure, Shortness of Breath, Syncope, Weakness - Related Data Allergies Allergy/AdvReac Type Severity Reaction Status Date / Time prednisone Allergy Other Verified 06/16/19 23:29 Sulfa (Sulfonamide Allergy Cannot Verified 06/16/19 23:29 Antibiotics) Remember Home Meds: Home Meds DULoxetine [Cymbalta] 90 mg PO BEDTIME 09/29/16 [History] Fesoterodine Fumarate [Toviaz] 8 mg PO DAILY 09/29/16 [History] Fluticasone/Salmeterol [Advair 250-50 Diskus] 1 puff INH BID PRN 09/29/16 [ History] Insulin Aspart [Novolog Flexpen] 0 units SQ QID PRN 09/30/16 [History] Acetaminophen with Codeine [Acetaminophen-Cod #3] 1 tab PO BID 01/11/19 [History ] Aspirin [Ecotrin EC] 81 mg PO DAILY 01/11/19 [History] Levothyroxine Sodium [Synthroid] 150 mcg PO DAILY 01/11/19 [History] Pantoprazole Sodium [Protonix] 40 mg PO DAILY@1700 01/11/19 [History] Phosphorus #1 [Virt-Phos 250 Neutral Tablet] 250 mg PO BID 01/11/19 [History] Potassium Chloride 20 meq PO BIDMEALS 01/11/19 [History] Rosuvastatin Calcium 20 mg PO BEDTIME 01/11/19 [History] carvediloL [Carvedilol] 6.25 mg PO BIDMEALS 01/11/19 [History] Albuterol Sulfate [Proair Hfa] 1 - 2 puff INH Q4H PRN 05/31/19 [History] Ascorbic Acid 500 mg PO DAILY 05/31/19 [History] Cholecalciferol (Vitamin D3) [Vitamin D3] 25 mcg PO DAILY 05/31/19 [History] Cinnamon Bark [Cinnamon] 500 mg PO DAILY 05/31/19 [History] Clotrimazole/Betamethasone Dip [Lotrisone Cream] 1 applic TP BID PRN 05/31/19 [ History] Cyanocobalamin (Vitamin B-12) [Vitamin B-12] 1,000 mcg PO DAILY 05/31/19 [ History] Cyclobenzaprine [Flexeril] 10 mg PO BID PRN 05/31/19 [History] Docusate Sodium [Colace] 100 mg PO BID 05/31/19 [History] Iron Polysaccharide Complex [Polysaccharide Iron] 150 mg PO DAILY 05/31/19 [ History] Losartan [Cozaar] 25 mg PO DAILY 05/31/19 [History] Magnesium Oxide 400 mg PO BIDMEALS 05/31/19 [History] Sennosides/Docusate Sodium [Senna-Docusate Sodium Tablet] 1 each PO DAILY [History] diphenhydrAMINE [Benadryl] 25 mg PO DAILY 05/31/19 [History] Non-Formulary Medication [NF Drug] 2 tab PO DAILY 06/01/19 [History] Bumetanide [Bumex] 2 mg PO DAILY@0600 tablet 06/09/19 [Rx] Calcium Carbonate 1,200 mg PO DAILY tablet 06/09/19 [Rx] Insulin Glarg,Human.Rec.Analog [Lantus Solostar] 15 units SUBCUT BEDTIME pen [Rx] Past Medical History HEENT History: Reports: Impaired Vision, Other (See Below) Other HEENT History: glasses Cardiovascular History: Reports: Heart Failure, High Cholesterol, Hypertension, Stents, Other (See Below) Other Cardiovascular History: stent mar 2017 Respiratory History: Reports: Asthma, Pneumonia, Recurrent, Sleep Apnea, Other ( See Below) Other Respiratory History: cpap use at home Gastrointestinal History: Reports: Chronic Constipation, Colon Polyp, GERD, Other (See Below) Other Gastrointestinal History: Crohns. ulcers in 1970 -1979's Genitourinary History: Reports: Other (See Below) Other Genitourinary History: UTI's in past many years ago. rectal repair REHAB TECH History: Reports: Other (See Below) Other REHAB TECH History: unable to have children Musculoskeletal History: Reports: Arthritis, Fibromyalgia, Osteoporosis Neurological History: Reports: Migraines, Neuropathy, Diabetic, Seizure, Other ( See Below) Other Neuro History: Seizure x 1 in 8. grade -. occ [place] -rare. feet feel funny - not numb "like they are in mud". narcolepsy Psychiatric History: Reports: Depression Endocrine/Metabolic History: Reports: Hypothyroidism, IDDM, Obesity/BMI 30+ Hematologic History: Reports: Blood Transfusion(s) Dermatologic History: Reports: Other (See Below) Other Dermatologic History: chronic red sore area under abdominal folds - Infectious Disease History Infectious Disease History: Reports: Chicken Pox - Past Surgical History HEENT Surgical History: Reports: Cataract Surgery, Other (See Below) Other HEENT Surgeries/Procedures: brigido Cardiovascular Surgical History: Reports: Coronary Artery Stent GI Surgical History: Reports: Colonoscopy, Polypectomy Musculoskeletal Surgical History: Reports: Other (See Below) Other Musculoskeletal Surgeries/Procedures:: does not use walker/cane - relies on dog uses handle on leash Oncologic Surgical History: Reports: Biopsy of Breast, Other (See Below) Other Oncologic Surgeries/Procedures: lumpectomy x 3 Social & Family History - Family History Family Medical History: Noncontributory - Caffeine Use Caffeine Use: Reports: None Caffeine Use Comment: not assessed ED ROS GENERAL - Review of Systems Review Of Systems: Comprehensive ROS is negative, except as noted in HPI. Constitutional: Reports: No Symptoms HEENT: Reports: No Symptoms Respiratory: Reports: No Symptoms Cardiovascular: Reports: No Symptoms Endocrine: Reports: No Symptoms GI/Abdominal: Reports: No Symptoms : Reports: No Symptoms Musculoskeletal: Reports: Shoulder Pain (Right), Arm Pain (Right elbow and wrist ) Skin: Reports: No Symptoms Neurological: Reports: No Symptoms Psychiatric: Reports: No Symptoms Hematologic/Lymphatic: Reports: No Symptoms Immunologic: Reports: No Symptoms ED EXAM, GENERAL - Physical Exam Exam: See Below Exam Limited By: No Limitations General Appearance: Alert, WD/WN, Moderate Distress Nose: Normal Inspection, No Blood Throat/Mouth: Normal Inspection, Normal Oropharynx, No Airway Compromise Head: Atraumatic, Normocephalic Neck: Normal Inspection, Supple, Non-Tender, Full Range of Motion Respiratory/Chest: No Respiratory Distress, Lungs Clear, Normal Breath Sounds, No Accessory Muscle Use, Chest Non-Tender Cardiovascular: Regular Rate, Rhythm, No Murmur Peripheral Pulses: 2+: Brachial (L), Brachial (R), Radial (L), Radial (R) GI/Abdominal: Normal Bowel Sounds, Soft, Non-Tender, Pelvis Stable Back Exam: Normal Inspection. No: CVA Tenderness (L), CVA Tenderness (R) Extremities: No Pedal Edema, Normal Capillary Refill, Arm Pain (Right upper arm and shoulder tenderness to palpation. No ecchymosis, crepitus, or edema noted. Lid range of motion secondary to discomfort) Neurological: Alert, Oriented, CN II-XII Intact, No Motor/Sensory Deficits Psychiatric: Normal Affect, Normal Mood Skin Exam: Warm, Dry, Intact, Normal Color, No Rash Course - Orders/Labs/Meds Orders: Active Orders 24 hr Category Date Time Status Elbow Min 3V Rt [CR] Stat Exams 06/16/19 23:27 Ordered Shoulder Comp Rt [CR] Stat Exams 06/16/19 23:27 Ordered Wrist 2V Rt [CR] Stat Exams 06/16/19 23:27 Ordered - Radiology Interpretation Free Text/Narrative:: Right humerus greater tubercle fracture. Right elbow no acute fracture or dislocation. Right wrist no fracture or dislocation. - Re-Assessments/Exams Free Text/Narrative Re-Assessment/Exam: 06/17/19 00:51 Patient afebrile, vital signs stable, pain controlled. Sling applied. Discussed case with Dr. Clayton, orthopedic surgeon at [facility]. Patient not a surgical candidate, so he felt it was appropriate to admit patient this evening at [facility] for pain control and have patient follow-up at Ortho clinic on Friday or Friday. 06/17/19 01:01 Departure - Departure Time of Disposition: 01:01 Disposition: Refer to Observation Condition: Good Clinical Impression: Humeral head fracture Qualifiers: Encounter type: initial encounter Fracture type: closed Laterality: right Qualified Code(s): S42.291A - Other displaced fracture of upper end of right humerus, initial encounter for closed fracture - Discharge Information Instructions: Humerus Fracture Treated With Immobilization, [id number] - My Orders Last 24 Hours: My Active Orders 06/16/19 23:27 Elbow Min 3V Rt [CR] Stat Shoulder Comp Rt [CR] Stat Wrist 2V Rt [CR] Stat - Assessment/Plan Last 24 Hours: My Active Orders 06/16/19 23:27 Elbow Min 3V Rt [CR] Stat Shoulder Comp Rt [CR] Stat Wrist 2V Rt [CR] Stat Assessment:: right humeral fracture Plan: Admitted for observation
[2019-06-17] MEDS ORDERED: Sodium Chloride 0.9% 10 ML Syringe FLUSH PRN
[2019-06-17] MEDS ORDERED: Ondansetron 4 MG/2 ML SDV IVPUSH ONE
[2019-06-17] MEDS ORDERED: HYDROmorphone 1 MG/ML Syringe IVPUSH ONE
[2019-06-17] MEDS ORDERED: Ondansetron 4 MG Tab.DIS PO PRN (00:54)
[2019-06-17] MEDS ORDERED: Non-Formulary Medication 1 Each (Fluticasone/Salmeterol 1 PUFF) INH PRN (01:16)
[2019-06-17] MEDS ORDERED: Insulin Glargine,Human Rec. Analog 100 Units/ML 3 ML Pen ONE (02:37)
[2019-06-17] MEDS: Insulin Glargine,Human Rec. Analog 100 Units/ML 3 ML Pen SUBCUT SCH ×2 (02:38→22:20)
[2019-06-17] MEDS: Insulin Aspart 100 Units/ML 3 ML Pen SUBCUT PRN ×2 (02:41→11:49)
[2019-06-17] MEDS: HYDROmorphone 2 MG/ML SDV IVPUSH PRN ×2 (02:55→06:32)
[2019-06-17] MEDS: Albuterol 8 GM Inhaler INH SCH ×3 (03:05→09:16)
[2019-06-17] MEDS: Bumetanide 1 MG Tab PO SCH (06:34)
[2019-06-17] MEDS: Carvedilol 6.25 MG Tab PO SCH ×2 (07:54→17:24)
[2019-06-17] MEDS: Calcium Carbonate 600 MG Tab PO SCH (08:00)
[2019-06-17] MEDS: Docusate Sodium 100 MG Cap PO SCH ×2 (08:01→20:12)
[2019-06-17] MEDS: Aspirin 81 MG Tab.EC PO SCH (08:01)
--- NOTE | 2019-06-17 08:14 | CR ---
[id number] RAD/RAD Shoulder Right 2V Min EXAM: RAD Shoulder Right 2V Min CLINICAL DATA: TRAUMA COMPARISON: NO PREVIOUS SIMILAR EXAM IS AVAILABLE. FINDINGS: A right humeral head and neck fracture is seen involving the greater tuberosity The fracture fragments are nondisplaced There appears to be a degree of comminution. IMPRESSION: HUMERAL HEAD AND NECK FRACTURE. Gaston Ryder MD 06/17/19 0867 Thank you for allowing us to participate in the care of your patient.
--- NOTE | 2019-06-17 08:17 | CR ---
[id number] RAD/RAD Elbow Right 2V EXAM: RAD Elbow Right 2V CLINICAL DATA: TRAUMA COMPARISON: NO PREVIOUS SIMILAR EXAM IS AVAILABLE. FINDINGS: No fracture or dislocation is seen. There is no radiopaque foreign body in the soft tissues. There is no air in the soft tissues. There is no cortical thickening or periosteal reaction either. IMPRESSION: NEGATIVE PLAIN FILM EXAM. Gaston Ryder MD 06/17/19 0816 Thank you for allowing us to participate in the care of your patient.
--- NOTE | 2019-06-17 08:20 | CR ---
[id number] RAD/RAD Wrist Right 2V EXAM: RAD Wrist Right 2V CLINICAL DATA: TRAUMA COMPARISON: NO PREVIOUS SIMILAR EXAM IS AVAILABLE. FINDINGS: No fracture or dislocation is seen. There is no radiopaque foreign body in the soft tissues. There is no air in the soft tissues. There is no cortical thickening or periosteal reaction either. IMPRESSION: NEGATIVE PLAIN FILM EXAM. Gaston Ryder MD 06/17/19 0818 Thank you for allowing us to participate in the care of your patient.
[2019-06-17] MEDS: Levothyroxine 100 MCG Tab PO SCH (09:12)
[2019-06-17] MEDS: Losartan 25 MG Tab PO SCH (09:14)
[2019-06-17] MEDS ORDERED: Albuterol 8 GM Inhaler INH PRN (09:30)
[2019-06-17] MEDS ORDERED: Formoterol/Mometasone 200-5 MCG 8.8 GM Inhaler IH PRN (09:30)
[2019-06-17] MEDS ORDERED: [UNRECOGNIZED DRUG - OTHER] TP PRN (10:13)
[2019-06-17] MEDS ORDERED: Cyclobenzaprine 10 MG Tab PO PRN (10:13)
[2019-06-17] MEDS ORDERED: BETAMETHASONE DIP TP PRN (10:13)
[2019-06-17] MEDS ORDERED: CLOTRIMAZOLE TP PRN (10:13)
[2019-06-17] MEDS: Iron Polysaccharides Complex 150 MG Cap PO SCH (10:38)
[2019-06-17] MEDS: diphenhydrAMINE 25 MG Cap PO SCH (10:38)
[2019-06-17] MEDS: Cyanocobalamin (Vitamin B12) 500 MCG Tab PO SCH (10:38)
[2019-06-17] MEDS: Cholecalciferol (Vitamin D3) 25 MCG Tab PO SCH (10:38)
[2019-06-17] MEDS: Ascorbic Acid 500 MG Tab PO SCH (10:38)
[2019-06-17] MEDS: Trospium 20 MG Tab PO SCH ×2 (10:40→20:12)
[2019-06-17] MEDS: Potassium Chloride 20 MEQ Tab.ER PO SCH ×2 (10:40→17:24)
[2019-06-17] MEDS: Phosphorus #1 250 MG Tab PO SCH ×2 (10:41→20:12)
[2019-06-17] MEDS: Magnesium Oxide 500 MG Tab PO SCH ×2 (10:41→17:24)
[2019-06-17] MEDS: Acetaminophen/Codeine 300-30 MG Tab PO PRN ×2 (10:46→20:13)
[2019-06-17] MEDS: Insulin Aspart 100 Units/ML 3 ML Pen SUBCUT SCH ×9 (11:49→22:22)
[2019-06-17] MEDS ORDERED: Insulin Aspart 100 Units/ML 3 ML Pen SUBCUT PRN (11:59)
--- NOTE | 2019-06-17 15:32 | PN ---
06/17/2019 PATIENT NAME: MECHE GONZALES HISTORY OF PRESENT ILLNESS: This is 64-year-old female, who presented to the emergency room yesterday by ambulance for complaint of a fall. The patient was in [place] yesterday for a followup hospital discharge appointment at [facility]. She returned home and was carrying bags in the house from the car and slipped and fell on the ice, landing on her right shoulder and arm. The incident occurred at approximately 10:30 last evening. The patient presented to the emergency room and was found to have a right humerus greater tubercle fracture. Right elbow has no acute fracture or dislocation. Right wrist had no fracture or dislocation. Dr. Chávez with [facility] in [place] was consulted by phone by the ER provider. The patient was not considered to be a surgical candidate, so was appropriate to admit for pain control and have the patient follow up at the Ortho Clinic. I do have Lobo Lockett PA-C, with [facility] in the clinic today and have requested a consultation with him. The patient has many comorbidities including diabetes mellitus, iron deficiency anemia, hypertension, hypothyroidism, hypokalemia, hypercholesterolemia, congestive heart failure. She is on Tylenol No. 3 at home on a b.i.d. basis. She has been receiving Dilaudid (hydromorphone) for pain. We will transition her to Tylenol with codeine and plan to discharge her on this. She will most likely need to stay in the hospital most likely until tomorrow to address pain control issues. The patient has been exposed to influenza B by one of the staff members. She will be treated prophylactically with Tamiflu 30 mg daily for 10 days. This is based on her previous creatinine clearance of 33.3. PHYSICAL EXAMINATION: VITAL SIGNS: Temp is 96.7, pulse 95, respirations 20, blood pressure 131/76, O2 saturation is 93% on room air. SKIN: Warm and dry to touch. She does have the right upper extremity in a sling. HEART: Normal. LUNGS: Normal. EXTREMITIES: There is mild pedal edema. IMPRESSION: 1. Right humerus greater tubercle fracture. This is not considered a surgical option. I did request Lobo Lockett PA-C with [facility] see the patient in consultation today. We will think about discharging her tomorrow if her pain is controlled. 2. Pain control due to problem number one. She is using hydromorphone for severe pain. We will transition to Tylenol No.3 one tablet every 4 hours and discharge her with the same. She does have multiple comorbidities including diabetes mellitus, hypercholesterolemia, hypertension, hypothyroidism, gastroesophageal reflux disease, iron deficiency anemia, hypomagnesemia. These are all stable at this time. The patient was just hospitalized here in swing bed for several days after a hospitalization at [facility]. The patient states, "in the month of May, I was home for 6 days." Based on pain control, discharge will be entertained tomorrow and she will follow up with Orthopedics on an outpatient basis. /[id number]/MODL
[2019-06-17] MEDS ORDERED: Pantoprazole 40 MG Tab.CR PO SCH (17:00)
[2019-06-17] MEDS: Oseltamivir 30 MG Cap PO SCH (17:21)
[2019-06-17] MEDS ORDERED: Rosuvastatin 10 MG Tab PO SCH (21:00)
[2019-06-17] MEDS ORDERED: DULoxetine 30 MG Cap PO SCH (21:00)
[2019-06-17] MEDS ORDERED: Acetaminophen/Codeine 300-30 MG Tab PO SCH (21:00)
[2019-06-18] MEDS: Acetaminophen/Codeine 300-30 MG Tab PO PRN ×3 (02:03→14:08)
[2019-06-18] MEDS: Bumetanide 1 MG Tab PO SCH (06:24)
[2019-06-18] MEDS: Potassium Chloride 20 MEQ Tab.ER PO SCH (08:08)
[2019-06-18] MEDS: Phosphorus #1 250 MG Tab PO SCH (08:08)
[2019-06-18] MEDS: Cyanocobalamin (Vitamin B12) 500 MCG Tab PO SCH (08:08)
[2019-06-18] MEDS: Calcium Carbonate 600 MG Tab PO SCH (08:08)
[2019-06-18] MEDS: Cholecalciferol (Vitamin D3) 25 MCG Tab PO SCH (08:08)
[2019-06-18] MEDS: Iron Polysaccharides Complex 150 MG Cap PO SCH (08:09)
[2019-06-18] MEDS: Magnesium Oxide 500 MG Tab PO SCH (08:09)
[2019-06-18] MEDS: Aspirin 81 MG Tab.EC PO SCH (08:09)
[2019-06-18] MEDS: Trospium 20 MG Tab PO SCH (08:09)
[2019-06-18] MEDS: Ascorbic Acid 500 MG Tab PO SCH (08:09)
[2019-06-18] MEDS: Docusate Sodium 100 MG Cap PO SCH (08:09)
[2019-06-18] MEDS: Carvedilol 6.25 MG Tab PO SCH (08:10)
[2019-06-18] MEDS: diphenhydrAMINE 25 MG Cap PO SCH (08:10)
[2019-06-18] MEDS: Levothyroxine 100 MCG Tab PO SCH (08:10)
[2019-06-18] MEDS: Oseltamivir 30 MG Cap PO SCH (08:10)
[2019-06-18] MEDS: Losartan 25 MG Tab PO SCH (08:11)
[2019-06-18 08:14] VITALS: PULSE 98
[2019-06-18] MEDS: Insulin Aspart 100 Units/ML 3 ML Pen SUBCUT SCH ×4 (08:14→12:05)
--- NOTE | 2019-06-18 08:36 | CONS ---
ORTHOPEDIC CONSULTATION DATE OF CONSULTATION: 06/17/2019 CONSULTING PHYSICIAN: LUANA Joe. REQUESTING PHYSICIAN: Marylu Martin PA-C. CHIEF COMPLAINT: Right proximal humerus fracture. HISTORY: This is a 64-year-old right-hand dominant female who fell yesterday evening while bringing in groceries. She slipped on some ice. She braced her fall on an outstretched arm and had immediate pain in the right shoulder. She was seen by Reynold Mazariegos in the emergency room at [facility]. X-rays revealing a minimally displaced humeral tuberosity fracture and surgical neck fracture of the right shoulder. She was admitted for pain and discomfort and placed in a sling. No other complaints are voiced. Currently, she denied any head trauma or loss of consciousness. She denies any numbness or tingling in her hand. She denies any prior history of shoulder difficulties up to this event. PAST MEDICAL HISTORY: Listed in the patient's chart. MEDICATIONS: Listed in the patient's chart. ALLERGIES: Listed in the patient's chart. REVIEW OF SYSTEMS: A 10-point review of systems is documented and overall negative other than what was pertinent to patient's history of present illness. PHYSICAL EXAMINATION: VITAL SIGNS: In patient's chart. GENERAL: This is a morbidly obese female seen at the bedside. She is alert and oriented x3. No acute distress. MUSCULOSKELETAL: She is in a sling, right shoulder. She has full finger, wrist, forearm, and elbow range of motion. Her shoulder range of motion was not examined as x-ray has already revealed a fracture of the shoulder. She has tenderness proximally over the shoulder. No tenderness over the clavicle. No tenderness over the AC joint. No pain with gentle neck range of motion. X-RAYS: Two views of the right shoulder reviewed and shows that there is a humeral tuberosity fracture, minimally displaced and a nondisplaced surgical neck fracture. IMPRESSION: Right proximal humerus fracture involving humeral tuberosity and surgical neck. PLAN: 1. Sling or shoulder immobilizer for 2 weeks. 2. Repeat x-ray of the right shoulder in 7-10 days. 3. We will have Physical Therapy begin to see her for some gentle range of motion, pendulum exercises, and passive range of motion weeks 2 through 4 and progress her range of motion thereafter. 4. X-rays again in 7-10 days and plan on repeating x-rays in clinic in [place] in 1 month. No strengthening or lifting exercises for 6 weeks. /[id number]/MODL
--- NOTE | 2019-06-18 08:48 | PCM.DCSUM1 ---
Discharge Summary - Hospital Course Free Text/Narrative:: Admission Date: 06/16/2019 Discharge Date: 06/18/2019 Admission Diagnosis: Right humeral head and neck fracture involving the greater tuberosity, non displaced. Not a surgical candidate. Discharge Diagnosis: Right humeral head and neck fracture involving the greater tuberosity, non displaced. Not a surgical candidate. Pain controlled with Tylenol with codeine. Usually takes BID but will increase to QID PRN. --Sling --Repeat x-ray in 10 days --Light PT in 2 weeks, patient prefers to do at [facility] --Follow-up with ortho at [facility] next outreach visit in July Exposure to influenza from nursing staff. Discharging home on Tamiflu 30 mg PO daily for total of 10 days. CONSULTATIONS: Orthopedics done on 06/17/2019 NEW MEDS AT DISCHARGE: Increased frequency of Tylenol with codeine from BID to q 4 hours PRN. Tamiflu 30 mg PO daily for total of 10 days. CODE STATUS: Full Code Secondary diagnosis: Ischemic cardiomyopathy with HFrEF, 40-45%. Chronic anemia. Pedal edema secondary to CHF. Hx bioprosthetic aortic valve replacement 2018, warfarin no longer needed. Acute on chronic renal failure, baseline creatinine 1.8. Diabetes mellitus, A1C 7.6. HTN. COOKIE on CPAP Hypothyroidism Victorina was admitted on 06/16/2019 after an accidental fall on the ice at her home after she had arrived home from appointments in [place] and was carrying in some bags. She did not hit her head. She arrived by ambulance to the ER and was found to have a nondisplaced R humeral head and neck fracture involving the greater tuberosity. Orthopedics was consulted and this was not felt to be surgical. She was admitted after being placed in a sling, for pain control. She has had her pain controlled by increasing the frequency of her Tylenol with Codeine from BID as an outpatient for chronic back pain to q 4 hours PRN. This has been working for her. Follow-up with me in 10 days for repeat x-ray. She is in agreement with this plan of care. Diagnosis: Stroke: No Modified [place]isa Scale: Slight Disable;Unable to Carry Out Prev Act.Able to Look After Affairs Modified [place] Scale Score: 2 - Discharge Data Discharge Date: 06/18/19 Discharge Disposition: Home, W Home Health Agency 06 Condition: Fair - Referral to Home Health Date of Face to Face Encounter: 06/18/19 Reason for Homebound Status: Resume previous home health order. Primary Care Physician: Brenda Gomez MD Skilled Need: Resume previous home health order from prior dishcarge. - Patient Summary/Data Consults: Consultations 06/17/19 10:58 Consult to Orthopedics [CONS] Routine - Patient Instructions Diet: Heart Healthy Diet, Diabetic Diet - Discharge Plan *PRESCRIPTION DRUG MONITORING PROGRAM REVIEWED*: Not Applicable *COPY OF PRESCRIPTION DRUG MONITORING REPORT IN PATIENT JESS: Not Applicable Prescriptions/Med Rec: Oseltamivir [Tamiflu] 30 mg PO DAILY #9 cap Home Medications: Home Meds DULoxetine [Cymbalta] 90 mg PO BEDTIME 09/29/16 [History] Fesoterodine Fumarate [Toviaz] 8 mg PO DAILY 09/29/16 [History] Fluticasone/Salmeterol [Advair 250-50 Diskus] 1 puff INH BID PRN 09/29/16 [ History] Insulin Aspart [Novolog Flexpen] 0 units SQ QID PRN 09/30/16 [History] Aspirin [Ecotrin EC] 81 mg PO DAILY 01/11/19 [History] Levothyroxine Sodium [Synthroid] 150 mcg PO DAILY 01/11/19 [History] Pantoprazole Sodium [Protonix] 40 mg PO DAILY@1700 01/11/19 [History] Phosphorus #1 [Virt-Phos 250 Neutral Tablet] 250 mg PO BID 01/11/19 [History] Potassium Chloride 20 meq PO BIDMEALS 01/11/19 [History] Rosuvastatin Calcium 20 mg PO BEDTIME 01/11/19 [History] carvediloL [Carvedilol] 6.25 mg PO BIDMEALS 01/11/19 [History] Albuterol Sulfate [Proair Hfa] 1 - 2 puff INH Q4H PRN 05/31/19 [History] Ascorbic Acid 500 mg PO DAILY 05/31/19 [History] Cholecalciferol (Vitamin D3) [Vitamin D3] 25 mcg PO DAILY 05/31/19 [History] Cinnamon Bark [Cinnamon] 500 mg PO DAILY 05/31/19 [History] Clotrimazole/Betamethasone Dip [Lotrisone Cream] 1 applic TP BID PRN 05/31/19 [ History] Cyanocobalamin (Vitamin B-12) [Vitamin B-12] 1,000 mcg PO DAILY 05/31/19 [ History] Cyclobenzaprine [Flexeril] 10 mg PO BID PRN 05/31/19 [History] Docusate Sodium [Colace] 100 mg PO BID 05/31/19 [History] Iron Polysaccharide Complex [Polysaccharide Iron] 150 mg PO DAILY 05/31/19 [ History] Losartan [Cozaar] 25 mg PO DAILY 05/31/19 [History] Magnesium Oxide 400 mg PO BIDMEALS 05/31/19 [History] Sennosides/Docusate Sodium [Senna-Docusate Sodium Tablet] 1 each PO DAILY [History] diphenhydrAMINE [Benadryl] 25 mg PO DAILY 05/31/19 [History] Non-Formulary Medication [NF Drug] 2 tab PO DAILY 06/01/19 [History] Bumetanide [Bumex] 2 mg PO DAILY@0600 tablet 06/09/19 [Rx] Calcium Carbonate 1,200 mg PO DAILY tablet 06/09/19 [Rx] Insulin Glarg,Human.Rec.Analog [Lantus Solostar] 15 units SUBCUT BEDTIME pen [Rx] Acetaminophen/Codeine [Tylenol with Codeine No.3 300MG/30MG] 1 tab PO Q4H PRN tablet 06/18/19 [Rx] Oseltamivir [Tamiflu] 30 mg PO DAILY #9 cap 06/18/19 [Rx] Patient Handouts: Humerus Fracture Treated With Immobilization, [id number] Forms: ED Department Discharge Referrals: [facility] [place] [Outside] - Discharge Summary/Plan Comment DC Time >30 min.: No - General Info Date of Service: 06/18/19 Admission Dx/Problem (Free Text: Right humeral head and neck fracture. - Patient Data Vitals - Most Recent: Last Vital Signs Temp 97.9 F 06/18/19 06:50 Pulse 98 06/18/19 08:10 Resp 20 06/18/19 06:50 BP 119/64 06/18/19 08:11 Pulse Ox 96 06/18/19 06:50 Weight - Most Recent: 286 lb I&O - Last 24 hours: Intake & Output 06/17/19 06/18/19 06/18/19 22:59 06:59 14:59 Intake Total 650 200 Balance 650 200 Med Orders - Current: Current Medications Acetaminophen/Codeine Phosphate (Tylenol With Codeine No.3 300mg/30mg) 1 tab PO Q4H PRN PRN Reason: Pain (moderate 4-6) Last Admin: 06/18/19 08:10 Dose: 1 tab Albuterol (Ventolin Hfa) 0 gm INH Q4H PRN PRN Reason: Dyspnea Stop: 06/18/19 23:59 Ascorbic Acid (Vitamin C) 500 mg PO DAILY [facility] Last Admin: 06/18/19 08:09 Dose: 500 mg Aspirin (Halfprin) 81 mg PO DAILY [facility] Last Admin: 06/18/19 08:09 Dose: 81 mg Bumetanide (Bumex) 2 mg PO DAILY@0600 [facility] Last Admin: 06/18/19 06:24 Dose: 2 mg Calcium Carbonate/Glycine (Calcium Carbonate) 1,200 mg PO DAILY [facility] Last Admin: 06/18/19 08:08 Dose: 1,200 mg Carvedilol (Coreg) 6.25 mg PO BIDMEALS [facility] Last Admin: 06/18/19 08:10 Dose: 6.25 mg Cholecalciferol (Vitamin D3) 25 mcg PO DAILY [facility] Last Admin: 06/18/19 08:08 Dose: 25 mcg Cyanocobalamin (Vitamin B12) 1,000 mcg PO DAILY [facility] Last Admin: 06/18/19 08:08 Dose: 1,000 mcg Cyclobenzaprine HCl (Flexeril) 10 mg PO BID PRN PRN Reason: Muscle Spasm Last Admin: 06/17/19 10:38 Dose: 10 mg Diphenhydramine HCl (Benadryl) 25 mg PO DAILY [facility] Last Admin: 06/18/19 08:10 Dose: 25 mg Docusate Sodium (Colace) 100 mg PO BID [facility] Last Admin: 06/18/19 08:09 Dose: 100 mg Duloxetine HCl (Cymbalta) 90 mg PO BEDTIME [facility] Last Admin: 06/17/19 20:12 Dose: 90 mg Hydromorphone HCl (Dilaudid) 0.5 mg IVPUSH Q2H PRN PRN Reason: Pain (severe 7-10) Last Admin: 06/17/19 06:32 Dose: 0.5 mg Insulin Aspart (Novolog) 0 unit SUBCUT WITHMEALSANDBED [facility] Last Admin: 06/18/19 08:14 Dose: 3 units Insulin Aspart (Novolog) 15 unit SUBCUT QID [facility] Last Admin: 06/18/19 08:15 Dose: 15 units Insulin Glargine (Lantus Solostar) 15 units SUBCUT BEDTIME [facility] Last Admin: 06/17/19 22:20 Dose: 15 units Levothyroxine Sodium (Synthroid) 150 mcg PO DAILY [facility] Last Admin: 06/18/19 08:10 Dose: 150 mcg Losartan Potassium (Cozaar) 25 mg PO DAILY [facility] Last Admin: 06/18/19 08:11 Dose: 25 mg Magnesium Oxide (Magnesium Oxide) 500 mg PO BIDMEALS [facility] Last Admin: 06/18/19 08:09 Dose: 500 mg Mometasone Furoate/Formoterol Fumar (Dulera 200-5 Mcg) 2 puff IH BID PRN PRN Reason: Other Ondansetron HCl (Zofran Odt) 4 mg PO Q4H PRN PRN Reason: nausea, able to take PO Oseltamivir Phosphate (Tamiflu) 30 mg PO DAILY [facility] Last Admin: 06/18/19 08:10 Dose: 30 mg Pantoprazole Sodium (Protonix) 40 mg PO DAILY@1700 [facility] Last Admin: 06/17/19 17:21 Dose: 40 mg Polysaccharide Iron Complex (Ferrex 150) 150 mg PO DAILY [facility] Last Admin: 06/18/19 08:09 Dose: 150 mg Potassium Chloride (Klor-Con M20) 20 meq PO BIDMEALS [facility] Last Admin: 06/18/19 08:08 Dose: 20 meq Rosuvastatin Calcium (Crestor) 20 mg PO BEDTIME [facility] Last Admin: 06/17/19 20:12 Dose: 20 mg Senna/Docusate Sodium (Senna Plus) 1 tab PO DAILY [facility] Last Admin: 06/18/19 08:16 Dose: 1 tab Sodium Chloride (Saline Flush) 10 ml FLUSH Q8HR PRN PRN Reason: keep vein open Sodium Phosphate (Neutra-Phos) 250 mg PO BID [facility] Last Admin: 06/18/19 08:08 Dose: 250 mg Trospium (Sanctura) 20 mg PO BID [facility] Last Admin: 06/18/19 08:09 Dose: 20 mg Discontinued Medications Acetaminophen/Codeine Phosphate (Tylenol With Codeine No.3 300mg/30mg) 1 tab PO BID [facility] Albuterol (Ventolin Hfa) 0 gm INH Q4H [facility] Stop: 06/18/19 23:59 Last Admin: 06/17/19 09:16 Dose: 2 puff Hydromorphone HCl (Dilaudid) 0.5 mg IVPUSH ONETIME ONE Stop: 06/17/19 00:01 Last Admin: 06/17/19 00:13 Dose: 0.5 mg Insulin Aspart (Novolog) 15 unit SUBCUT QID PRN PRN Reason: Hyperglycemia Last Admin: 06/17/19 02:41 Dose: 15 units Insulin Aspart (Novolog) 0 unit SUBCUT WITHMEALSANDBED PRN PRN Reason: Hyperglycemia Insulin Glargine (Lantus Solostar) Confirm Administered Dose 300 units .ROUTE .STK-MED ONE Stop: 06/17/19 02:38 Last Admin: 06/17/19 03:02 Dose: Not Given Non-Formulary Medication (Fluticasone/Salmeterol) 1 puff INH BID PRN PRN Reason: Other Ondansetron HCl (Zofran) 4 mg IVPUSH ONETIME ONE Stop: 06/17/19 00:01 Last Admin: 06/17/19 00:14 Dose: 4 mg - Exam General: Reports: Alert, Oriented, Cooperative, No Acute Distress Lungs: Reports: Clear to Auscultation, Normal Respiratory Effort Cardiovascular: Reports: Regular Rate, Regular Rhythm, No Murmurs GI/Abdominal Exam: Normal Bowel Sounds Extremities: Other (Sling in place on right upper extremity.)
[2019-06-18] MEDS ORDERED: Non-Formulary Medication 1 Each PO SCH (09:00)
[2019-06-18] MEDS ORDERED: CINNAMON BARK 500 MG PO SCH (09:00)
[2019-06-18 11:59] VITALS: BP 110/61
== END 2019-06-18 16:30 | disposition home health service (06) ==
LOC: KA.ED 23:25 → KA.MS 06-17 00:55 → KA.ED 06-17 01:35 → KA.MS 06-17 01:40 → UNDOADMOB 06-17 01:40
PROVIDERS: ADMIT Physician Assistant Surgical; ATTEND Internal Medicine
DX: S42.251A Displaced fracture of greater tuberosity of right humerus, initial encounter for closed fracture (principal); S42.291A Other displaced fracture of upper end of right humerus, initial encounter for closed fracture; J10.1 Influenza due to other identified influenza virus with other respiratory manifestations; I13.0 Hypertensive heart and chronic kidney disease with heart failure and stage 1 through stage 4 chronic kidney disease, or unspecified chronic kidney disease; E11.22 Type 2 diabetes mellitus with diabetic chronic kidney disease; E11.40 Type 2 diabetes mellitus with diabetic neuropathy, unspecified; N18.9 Chronic kidney disease, unspecified; N17.9 Acute kidney failure, unspecified; I50.9 Heart failure, unspecified; E78.00 Pure hypercholesterolemia, unspecified; I25.5 Ischemic cardiomyopathy; D50.9 Iron deficiency anemia, unspecified; K21.9 Gastro-esophageal reflux disease without esophagitis; E83.42 Hypomagnesemia; E03.9 Hypothyroidism, unspecified; G47.33 Obstructive sleep apnea (adult) (pediatric); J45.909 Unspecified asthma, uncomplicated; F32.9 Major depressive disorder, single episode, unspecified; M19.90 Unspecified osteoarthritis, unspecified site; E66.9 Obesity, unspecified; W00.0XXA Fall on same level due to ice and snow, initial encounter; Z68.43 Body mass index [BMI] 50.0-59.9, adult; Z79.82 Long term (current) use of aspirin; Z79.4 Long term (current) use of insulin; Z79.899 Other long term (current) drug therapy; Z95.2 Presence of prosthetic heart valve; Z99.89 Dependence on other enabling machines and devices; Z88.2 Allergy status to sulfonamides; Z88.8 Allergy status to other drugs, medicaments and biological substances
CPT/HCPCS: 73030-RT; 73070-RT; 73100-RT; 82962; 94640; 96374; 96375; 96376; 99285-25; A9270-GY; G0378; J1170; J1815-GY; J2405

== ENCOUNTER 2021-09-29 04:40 | Emergency (ER) | payer MEDICARE, OTHER, MEDICAID ==
[2021-09-29] MEDS ORDERED: Dextrose 5%-0.45% NaCl 1,000 ML ONE (05:22)
[2021-09-29] MEDS ORDERED: Dextrose 5%-0.45% NaCl 1,000 ML IV SCH (05:30)
[2021-09-29 05:41] LABS: ANION GAP 9.7 mmol/L (5-15); CHLORIDE,CL 103 mmol/L (98-107); SODIUM,NA 141 mmol/L (136-145)
[2021-09-29 07:07] VITALS: BP 115/60; PULSE 77
== END 2021-09-29 09:30 | disposition home or self-care (01) ==
LOC: KA.ED 04:40
DX: E11.649 Type 2 diabetes mellitus with hypoglycemia without coma (principal); G47.00 Insomnia, unspecified; R40.0 Somnolence; E11.22 Type 2 diabetes mellitus with diabetic chronic kidney disease; I13.0 Hypertensive heart and chronic kidney disease with heart failure and stage 1 through stage 4 chronic kidney disease, or unspecified chronic kidney disease; N18.30 Chronic kidney disease, stage 3 unspecified; E11.40 Type 2 diabetes mellitus with diabetic neuropathy, unspecified; E03.9 Hypothyroidism, unspecified; I50.9 Heart failure, unspecified; K21.9 Gastro-esophageal reflux disease without esophagitis; E66.9 Obesity, unspecified; Z88.2 Allergy status to sulfonamides; Z88.8 Allergy status to other drugs, medicaments and biological substances; Z79.4 Long term (current) use of insulin; Z79.82 Long term (current) use of aspirin; Z79.899 Other long term (current) drug therapy; Z68.43 Body mass index [BMI] 50.0-59.9, adult
CPT/HCPCS: 36415; 80053; 82947; 84443; 84484; 85025; 93010; 99284; 99285-25; J7042